=== PATIENT | female | born 1965 | race Caucasian/White ===

== ENCOUNTER 2021-01-26 10:42 | Emergency (ER) | payer BC, SELFPAY ==
[2021-01-26 10:58] VITALS: BP 150/86; PULSE 93; RESP 20; TEMP 36.3; O2SAT 100
--- NOTE | 2021-01-26 11:21 | ED.BACK ---
HPI - Back Pain/Injury General Chief Complaint: Back Pain/Injury Stated Complaint: Back Pain Time Seen by Provider: 01/26/21 11:08 Source: patient and RN notes reviewed Mode of arrival: ambulatory Limitations: no limitations History of Present Illness HPI Narrative: Patient presents today complaining of bilateral low back pain x3 days. Denies any real injury or trauma. 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 Pain increases with movement. Denies radiation of the pain. Denies numbness or tingling in the extremities or genitalia. Denies any loss of bowel or bladder control. Currently rates her pain 7/10 which increases to 10/10 with movement. She has been taking ibuprofen without relief. She has been also using a heating pad, which does provide some mild relief. MD elicited complaint: back pain Related Data Allergies Allergy/AdvReac Type Severity Reaction Status Date / Time naproxen Allergy Mild N/V Verified 04/01/19 13:39 tramadol Allergy Mild LEG CRAMPS Verified 04/01/19 13:40 Review of Systems Review of Systems: Narrative: CONSTITUTIONAL: Denies body aches, fever, chills, or sweats. EYES: Denies visual changes, redness, or discharge. ENT: Denies rhinorrhea, congestion, sore throat, or otalgia. CARDIOVASCULAR: Denies chest pain, palpitations, or edema. RESPIRATORY: Denies cough or dyspnea. GASTROINTESTINAL: Denies abdominal pain, nausea, vomiting, or diarrhea. GENITOURINARY: Denies dysuria or hematuria. SKIN: Denies rash, itching, or wounds. MUSCULOSKELETAL: Denies joint pain, or myalgia. + Low back pain NEUROLOGIC: Denies headache, numbness, tingling, or weakness. PSYCH: Denies depression or anxiety. PMFSH Comments At time of signature, I have reviewed and agree with nursing past medical, surgical, social and family history unless otherwise noted. Please see nursing chart for further information. There is no relevant family history pertinent to the presenting complaint Exam Narrative: Exam Narrative: GENERAL: Well-appearing, well-nourished, and in no acute distress. HEAD: Normocephalic, atraumatic. EYES: EOMI. No redness or drainage. Conjunctivae normal. ENT: Mucous membranes pink and moist. NECK: Normal AROM. CHEST: No respiratory distress. MUSCULOSKELETAL: No bony tenderness of the thoracic or lumbar spine. Bilateral lumbar paraspinal muscle tenderness. This tenderness extends to the bilateral buttocks. Distal sensation intact. Saddle sensation intact. Capillary refill normal. Pedal pulses normal. Dorsiflexion and plantarflexion equal and strong. Hip flexion strong against resistance. EXTREMITIES: Normal range of motion. No edema. SKIN: Warm, dry, no rash. Capillary refill normal. Normal skin turgor. NEURO: No focal deficits. Alert and oriented x3. Gait steady. PSYCH: Normal affect. No signs of depression or anxiety. Course Vital Signs Vital signs: Vital Signs Temperature 97.4 F L 01/26/21 10:58 Pulse Rate 93 01/26/21 10:58 Respiratory Rate 20 01/26/21 10:58 Blood Pressure 150/86 H 01/26/21 10:58 Pulse Oximetry 100 01/26/21 10:58 Temperature 97.4 F L 01/26/21 10:58 Pulse Rate 93 01/26/21 10:58 Respiratory Rate 20 01/26/21 10:58 Blood Pressure 150/86 H 01/26/21 10:58 Pulse Oximetry 100 01/26/21 10:58 Reviewed. Pt has been instructed to follow up with her PCP regarding her elevated blood pressure today. MDM - Back Pain/Injury Differential Diagnosis Differential diagnosis: Likely lumbar radiculopathy, sciatica, strain of lumbar region, thoracic back pain and other (Bulging disc) Critical Care Time Critical Care Time Critical Care Time: No Discharge Plan Discharge Clinical Impression: Strain of lumbar region Qualifiers: Encounter type: initial encounter Qualified Code(s): S39.012A - Strain of muscle, fascia and tendon of lower back, initial encounter Pat
== END 2021-01-26 11:40 | disposition home or self-care (01) ==
PROVIDERS: Emergency Provider Nurse Practitioner; PCP Nurse Practitioner Family
DX: S39.012A Strain of muscle, fascia and tendon of lower back, initial encounter (principal); X58.XXXA Exposure to other specified factors, initial encounter; E78.00 Pure hypercholesterolemia, unspecified; I10 Essential (primary) hypertension; K21.9 Gastro-esophageal reflux disease without esophagitis; E03.9 Hypothyroidism, unspecified
CPT/HCPCS: 99213; G0463

== ENCOUNTER 2021-07-24 08:20 | Emergency (ER) | payer BC, SELFPAY ==
--- NOTE | ~2021-07-24 | XR_ITS ---
EXAMINATION: XR knee RT min 4V DATE: 07/24/2021 09:02 INDICATION: Right knee pain. TECHNIQUE: 5 views of right knee were obtained. COMPARISON: None. FINDINGS: Bone alignment is normal. No fracture. There is mild tricompartmental osteoarthritis charac terized by tiny marginal osteophytes. No joint space narrowing. No knee joint effusion. IMPRESSION: 1. Mild right knee osteoarthritis. Reviewed, dictated and finalized at location A.
[2021-07-24 08:26] VITALS: BP 129/70; PULSE 87; RESP 14; TEMP 36.5; O2SAT 98
--- NOTE | 2021-07-24 08:47 | ED.LOWEXIN ---
HPI - Extremity Injury (Lower) General Chief Complaint: Extremity Injury, Lower Stated Complaint: right knee pain Time Seen by Provider: 07/24/21 08:39 Source: patient and RN notes reviewed Mode of arrival: ambulatory Limitations: no limitations History of Present Illness HPI Narrative: Patient presents today complaining of right knee pain x1 week with swelling. She denies any injury or trauma. Denies numbness or tingling. She is currently pain-free at rest, but this can increase to 9/10 with weightbearing or extension. She has tried ice, Tylenol, and ibuprofen without relief. MD complaint: knee injury Related Data Home Medications Medication Instructions Recorded Confirmed levothyroxine 125 mcg PO DAILY 07/24/21 07/24/21 losartan 100 mg PO DAILY 07/24/21 07/24/21 meloxicam 15 mg PO DAILY 07/24/21 07/24/21 oxybutynin chloride 5 mg PO DAILY 07/24/21 07/24/21 pantoprazole 40 mg PO QAM 07/24/21 07/24/21 Allergies Allergy/AdvReac Type Severity Reaction Status Date / Time naproxen Allergy Mild N/V Verified 07/24/21 08:35 tramadol Allergy Mild LEG CRAMPS Verified 07/24/21 08:35 Review of Systems Review of Systems: CONSTITUTIONAL: Denies body aches, fever, chills, or sweats. EYES: Denies visual changes, redness, or discharge. ENT: Denies rhinorrhea, congestion, sore throat, or otalgia. CARDIOVASCULAR: Denies chest pain, palpitations, or edema. RESPIRATORY: Denies cough or dyspnea. GASTROINTESTINAL: Denies abdominal pain, nausea, vomiting, or diarrhea. GENITOURINARY: Denies dysuria or hematuria. SKIN: Denies rash, itching, or wounds. MUSCULOSKELETAL: Denies back pain, or myalgia. + Right knee pain NEUROLOGIC: Denies headache, numbness, tingling, or weakness. PSYCH: Denies depression or anxiety. [facility] Past Medical History Medical History (Updated 07/24/21 @ 09:20 by Jennie Serna, MEDICAID SPECIALIST, ) GERD (gastroesophageal reflux disease) Hypertension Hypothyroidism Comments At time of signature, I have reviewed and agree with nursing past medical, surgical, social and family history unless otherwise noted. Please see nursing chart for further information. There is no relevant family history pertinent to the presenting complaint Exam Narrative: GENERAL: Well-appearing, well-nourished, and in no acute distress. HEAD: Normocephalic, atraumatic. EYES: EOMI. No redness or drainage. Conjunctivae normal. ENT: Mucous membranes pink and moist. NECK: Normal AROM. CHEST: No respiratory distress. EXTREMITIES: Right knee: Tenderness to the lateral knee with palpation. Distal sensation intact. Capillary refill normal. Pedal pulse normal. Full range of motion with pain with extension. Mild edema noted about the knee. No ecchymosis or erythema noted. SKIN: Warm, dry, no rash. Capillary refill normal. Normal skin turgor. NEURO: No focal deficits. Alert and oriented x3. Gait steady. PSYCH: Normal affect. No signs of depression or anxiety. Course Vital Signs Vital signs: Vital Signs Temperature 97.7 F 07/24/21 08:26 Pulse Rate 87 07/24/21 08:26 Respiratory Rate 14 07/24/21 08:26 Blood Pressure 129/70 07/24/21 08:26 Pulse Oximetry 98 07/24/21 08:26 Temperature 97.7 F 07/24/21 08:26 Pulse Rate 87 07/24/21 08:26 Respiratory Rate 14 07/24/21 08:26 Blood Pressure 129/70 07/24/21 08:26 Pulse Oximetry 98 07/24/21 08:26 Reviewed. Pt has been instructed to follow up with her PCP regarding her elevated blood pressure today. MDM - Extremity Injury (Lower) Differential Diagnosis Differential diagnosis: Likely other (Osteoarthritis, Garcia's cyst, knee effusion) Imaging Data Radiologist's impression: ITS Impressions Knee X-Ray 07/24/21 09:05 IMPRESSION: 1. Mild right knee osteoarthritis. Critical Care Time Critical Care Time Critical Care Time: No Discharge Plan Discharge Clinical Impression: Acute pain of right knee Patient Disposition: Home, Self-Ca
== END 2021-07-24 09:27 | disposition home or self-care (01) ==
PROVIDERS: Emergency Provider Nurse Practitioner; PCP Nurse Practitioner Family
DX: M25.561 Pain in right knee (principal); I10 Essential (primary) hypertension; E03.9 Hypothyroidism, unspecified; Z79.1 Long term (current) use of non-steroidal anti-inflammatories (NSAID)
CPT/HCPCS: 73564; 99213; G0463

== ENCOUNTER 2021-11-27 13:05 | Outpatient (CLI) | payer BC, SELFPAY ==
--- NOTE | 2021-11-27 13:15 | ECG_ITS ---
Measurements Intervals [place] Rate: 77 P: 35 [place]: 209 QRS: 1 QRSD: 89 T: -6 QT: 347 QTc: 395 Interpretive Statements SINUS RHYTHM INCOMPLETE RIGHT BUNDLE BRANCH BLOCK LOW QRS VOLTAGE IN PRECORDIAL LEADS BORDERLINE ST-T WAVE ABNORMALITY- INFERIOR LEADS BASELINE ARTIFACT- I, III, AVR, AVL, AVF BORDERLINE ECG Electronically Signed On 11-27-2021 13:25:22 STAMPING OPERATOR by Jacinto Garcia D.O.
== END 2021-11-27 13:06 | disposition home or self-care (01) ==
LOC: ANHSURGERY 13:08
PROVIDERS: PCP Nurse Practitioner Family; Visit Provider Orthopaedic Surgery
DX: Z01.810 Encounter for preprocedural cardiovascular examination (principal); I10 Essential (primary) hypertension; Z87.891 Personal history of nicotine dependence
CPT/HCPCS: 93005

== ENCOUNTER 2021-11-28 01:46 | Day surgery (SDC) | payer BC, SELFPAY ==
[2021-11-24 10:18] VITALS: BMI 39.6
--- NOTE | 2021-11-24 10:28 | PC.NURSE ---
Report to the Outpatient Waiting Room, entrance under the green pavilion located off [facility], at time 9:30 on date 11/28/21. OR Time: 11:30. - You will be asked a series of questions to screen for COVID 19 for your protection. - A mask is required within the hospital. - No visitors are allowed at this time. Preoperative COVID Testing Requirements: No COVID Test needed if: (proof is required; if not received patient will have Rapid Test prior to entry) - Patient has received COVID Vaccine at least 14 days prior to procedure date or - Patient has positive COVID test result within last 90 days of surgery date. COVID Test needed if above criteria is not met Patients may have clear liquids (water, carbonated beverages, clear teas, apple juice) until 3 hours prior to surgery (8:30) with a maximum of 20 ounces. - No food from midnight until time of surgery Take the following medications with a SIP of water the morning of surgery: LEVOTHYROXINE Medications to discontinue per physician: VITAMINS/SUPPLEMENTS Date to take last dose: 11/24/[address] DUBOSE Please no make-up, nail mauritian, hairspray, perfume, deodorant, or body powder the day of surgery. No jewelry (including any body piercings) or valuables the day of surgery, leave them at home. Please take a shower or bath the night before, or the morning of, surgery with an antibacterial soap. Wear comfortable, loose fitting clothing. - Jewelry must be removed prior to entering the operating room. Rings and piercings that are not removed may be cut off. - The hospital will not accept responsibility for valuables. - Please leave all valuables, including medications, at home the day of surgery. If you are going home after surgery, a licensed helper/driver must drive you home. - NO public transportation without another adult. - We recommend that an adult stay with you for 24 hours following discharge. - We also recommend that you do not drive, make important decision, drink alcoholic beverages, or take any drugs that were not prescribed by your health care provider for at least 24 hours after your discharge time. Follow any additional instructions given to you from your surgeon. Telephone instructions given to BRYAN DELCID and asked if any additional questions and then verbalized understanding. Patient advised to call surgeon office or pre surgery nurse liaison [phone] if any additional questions.
[2021-11-28] VITALS (8 sets, daily range): BP systolic 95–131; BP diastolic 60–83; PULSE 77–98; RESP 10–18; TEMP 36.2–36.5; O2SAT 94–99
--- NOTE | 2021-11-28 09:39 | WPDHPUPDATE1 ---
History and Physical Update Update Date/Time: 11/28/21 09:39 History and Physical has been reviewed, including an updated exam of the patient. There are NO changes in the patient's condition. Risks, benefits, and alternatives have been discussed and questions answered. Patient agrees to proceed with procedure.
[2021-11-28] MEDS: LACTATED RINGERS 1,000 ML 30 ML IV CONT (10:00)
[2021-11-28] MEDS: ACETAMINOPHEN 500 MG TABLET 1000 MG PO (10:04)
--- NOTE | 2021-11-28 10:19 | WPDANESEPPF ---
Anes - Initial Pre Proc Eval Procedure: Operation Date: 11/28/21 11:30 Proposed Procedures p Right Knee Arthroscopy, Partial Medial Meniscectomy - Zaid Garcia MD Date/Time: 11/28/21 10:19 Surgeon: Zaid Garcia MD Pre Op Diagnosis: right medial meniscus tear Patient Data Age: 56 Gender: F Height: 1.57 m Weight: 98.2 kg Last Vital Signs Temp 36.5 C 11/28/21 09:38 Pulse 81 11/28/21 09:38 Resp 18 11/28/21 09:38 BP 125/73 11/28/21 09:38 Pulse Ox 96 11/28/21 09:38 Allergies Allergy/AdvReac Type Severity Reaction Status Date / Time naproxen Allergy Mild N/V Verified 11/28/21 10:13 tramadol Allergy Mild LEG CRAMPS Verified 11/28/21 10:13 Home Medications Medication Instructions Recorded Confirmed Type levothyroxine 125 mcg PO DAILY 07/24/21 11/28/21 History losartan 100 mg PO DAILY 07/24/21 11/28/21 History meloxicam 15 mg PO DAILY 07/24/21 11/28/21 History oxybutynin chloride 5 mg PO DAILY 07/24/21 11/28/21 History pantoprazole 40 mg PO QAM 07/24/21 11/28/21 History calcium carbonate 600 mg-vitamin 1 tablet PO DAILY 09/05/21 11/28/21 History D3 20 mcg (800 unit) tablet Patient hx anesthesia problems: none Family hx anesthesia problems: none Results Review: All pre-operative results and documents have been reviewed as part of the pre-operative evaluation. [facility] Past Medical History Medical History GERD (gastroesophageal reflux disease) Hypertension Hypothyroidism Surgical History Surgical History H/O knee surgery (~1975) History of carpal tunnel surgery (~2015) History of tubal ligation (~1992) Family History Family History Mother Osteoarthritis Diabetes mellitus Social History Social History Smoking packs per day: 1 Smoking cigarettes per day: 20.0 Years smoked: 30 Smoking pack-years: 30.00 Smoking status: Former smoker Tobacco type: cigarettes Smoking end date: 11/04/17 Additional smoking assessment comments: quit Alcohol intake: current Alcohol use details: once a month Substance use: never Substance use type: does not use Living arrangements: with family Spiritual care concerns: No Anes - Eval Final PreProcedure Day of Procedure 11/28/21 10:19 Patient weight: morbidly obese Heart: regular rate and rhythm Lungs: clear to auscultation Airway: Mallampati scale class II Neurological: alert and oriented Last oral intake: >/= 8 hours ASA classification: III Emergent: no Anesthetic plan: proceed Anesthesia type and monitoring: general LMA and standard monitoring Results Review: All pre-operative results and documents have been reviewed as part of the pre-operative evaluation. Informed Consent: The patient's anesthetic plan and its attendant risks and benefits were discussed with the patient/family/POA. Questions were solicited and answers provided to the satisfaction of the patient/family/POA.
[2021-11-28] MEDS: KETOROLAC 15 MG/ML VIAL (*BKC) IV PUSH (10:43)
[2021-11-28] MEDS: ceFAZolin 2 GM/D5W 50 ML 2 GM/50 ML BAG IVPB (10:44)
[2021-11-28] MEDS: BUPIVACAINE/EPINEPHRINE 0.25% 10 ML VIAL 20 ML INFILTRATE (11:06)
--- NOTE | 2021-11-28 11:51 | SUR.PHASEI ---
Simple mask removed at 1151.
[2021-11-28] MEDS: fentaNYL CITRATE INJ (*CRX) 100 MCG/2 ML VIAL 25 MCG IV PUSH ×2 (12:02→12:06)
[2021-11-28] MEDS: oxyCODONE HCL (*CRX) 5 MG TAB IR PO (12:54)
--- NOTE | 2021-11-28 13:23 | P.OP_ITS ---
Procedure Note - Detailed Date of Procedure 11/28/21 Pre-op Diagnosis Right medial meniscus tear Post-op Diagnosis same Procedure Performed Arthroscopic partial right meniscectomy Surgeon Zaid Garcia MD Collection Analyst Rylie Todd PA-C Anesthesia general Findings Significant tricompartmental degenerative changes. Patellofemoral disease as well as lateral tibial involvement primarily. The tear was at the posterior horn with with complex degeneration and destabilization of the meniscus. Debridement occurred throughout the posterior and posterior medial meniscus. The radiofrequency probe was used to attempt to stabilize further the damaged tissue posteriorly. Also the chondroplasty was performed both on the medial femur and on the lateral tibia primarily. Medial femur chondromalacia grade 3, medial tibia grade 2. Lateral femur chondromalacia grade 1, lateral tibia grade 3. Patellar grade 3, trochlea grade 3. Description of Procedure The patient was identified and the surgical site confirmed and signed in the preoperative holding area. Antibiotics were started per protocol. She was brought to the operative room and transferred to the OR table. A general anesthetic was administered. Supine position with the operative lower extremity position in the leg herron after placement of a well padded tourniquet. The leg support was lowered and the contralateral limb was supported with a soft bolster. The knee was prepped and draped in the usual sterile fashion. A time- out was performed. The portal sites were marked and infiltrated with 0.5% Marcaine 20 mL. The limb was exsanguinated and the tourniquet inflated to 300 mL Hg. Standard inferolateral and inferomedial portals were established. Inflow was obtained with the saline pump. The camera was introduced. Diagnostic inspection of the joint was accomplished. The meniscus was debrided with the arthroscopic shaver and punches until stable. The radiofrequency probe was also used for further d?bridement. Gentle chondroplasty was performed as needed, primarily on the medial femur and lateral tibia. The arthroscopic instruments were removed. The tourniquet released and wounds closed with subcutaneous 4-0 Monocryl absorbable suture. Steri strips and a st erile dressing were applied. A light elastic wrap was placed. The patient was extubated and brought to the recovery room in stable condition. Estimated Blood Loss 5 Drains No Complications No immediate complications Condition stable Disposition PACU
== END 2021-11-28 13:30 | disposition home or self-care (01) ==
PROVIDERS: PCP Nurse Practitioner Family; Visit Provider Orthopaedic Surgery
PROC: (CPT 29870; principal; 2021-11-28 11:30)
DX: M23.221 Derangement of posterior horn of medial meniscus due to old tear or injury, right knee (principal); M22.41 Chondromalacia patellae, right knee; K21.9 Gastro-esophageal reflux disease without esophagitis; I10 Essential (primary) hypertension; E03.9 Hypothyroidism, unspecified; Z87.891 Personal history of nicotine dependence; E66.9 Obesity, unspecified; Z68.39 Body mass index [BMI] 39.0-39.9, adult; M25.561 Pain in right knee; F32.9 Major depressive disorder, single episode, unspecified; R61 Generalized hyperhidrosis; R26.2 Difficulty in walking, not elsewhere classified
CPT/HCPCS: 29881; 93005; A9270; J0690; J1100; J1885; J2250; J2405; J2704; J3010; J7120

== ENCOUNTER 2022-05-31 09:54 | Emergency (ER) | payer SELFPAY ==
--- NOTE | 2022-05-31 09:56 | ED.CHESTPAIN ---
HPI - Chest Pain General Chief Complaint: Chest Pain Stated Complaint: Chest Pain Time Seen by Provider: 05/31/22 09:56 Source: patient Mode of arrival: ambulatory Limitations: no limitations History of Present Illness HPI narrative: Ms. Salas is a 56-year-old female patient presenting to the clinic today with complaints of midsternal chest pain that began at 0800 this morning that last approx 1h30 minutes. She reports that the pain was very intense and rates it 10 out of 10 on the pain rating scale. She currently rates the pain approximately a 3 out of 10. She is unable to give me a quality of pain at this time. States she did have some shortness of breath with the intense pain and that the pain radiated into her back. She denies any jaw or arm pain. Reports that she ate a salad last night and thought that this may be gas so she took some Gas-X. Reported that she has had chest pressure a couple weeks ago while at work and they called an ambulance and her EKG was normal and her blood pressure was elevated at that time but she declined transfer to the hospital as she did not have insurance. Related Data Home Medications Medication Instructions Recorded Confirmed levothyroxine 125 mcg tablet 125 mcg PO DAILY 07/24/21 01/03/22 losartan 100 mg tablet 100 mg PO DAILY 07/24/21 01/03/22 meloxicam 15 mg tablet 15 mg PO DAILY 07/24/21 01/03/22 oxybutynin chloride 5 mg tablet 5 mg PO DAILY 07/24/21 01/03/22 pantoprazole 40 mg tablet,delayed 40 mg PO QAM 07/24/21 01/03/22 release calcium carbonate 600 mg-vitamin 1 tablet PO DAILY 09/05/21 01/03/22 D3 20 mcg (800 unit) tablet (Caltrate with Vitamin D3) Allergies Allergy/AdvReac Type Severity Reaction Status Date / Time naproxen Allergy Mild N/V Verified 11/28/21 10:13 tramadol Allergy Mild LEG CRAMPS Verified 11/28/21 10:13 Review of Systems Review of Systems: Pertinent positives per HPI. Patient denies any fever, chills, rash, headache, visual changes, dizziness, cough, runny nose, sore throat, palpitations, nausea, vomiting, diarrhea, constipation, abdominal pain, or any urinary issues. [facility] Past Medical History Medical History GERD (gastroesophageal reflux disease) Hypertension Hypothyroidism Surgical History Surgical History H/O knee surgery (~1975) History of carpal tunnel surgery (~2015) History of tubal ligation (~1992) Family History Family History Mother Osteoarthritis Diabetes mellitus Social History Social History Smoking packs per day: 1 Smoking cigarettes per day: 20.0 Years smoked: 30 Smoking pack-years: 30.00 Tobacco type: cigarettes Smoking end date: 11/04/17 Additional smoking assessment comments: quit Alcohol intake: current Alcohol use details: once a month Substance use: never Substance use type: does not use Spiritual care concerns: No Comments At the time of my signature, I reviewed and agree with the nursing past medical, surgical, social, and family history. There is no relevant family history pertinent to the patient complaint. Exam Narrative: General: Well-developed,obese, in no apparent distress Head: Normocephalic, atraumatic. Cardio: Regular rate and rhythm, s1 and s2 normal, no murmur appreciated. Resp: Clear to auscultation bilaterally, no rhonchi, rales, wheezing or rubs. Extremities: No deformity, no edema, no cyanosis, capillary refill less than 2 seconds, peripheral pulses palpable and strong. Integumentary: [place], warm, and dry, intact without lesion, no rashes. Course Course Emergency Course: Portions of this record may have been created with voice recognition software. Level of Care: Express Care Visit Vital Signs Vital signs: Vital si
[2022-05-31 10:00] VITALS: BP 126/75; PULSE 89; RESP 16; TEMP 36.7; O2SAT 98
--- NOTE | 2022-05-31 10:07 | ECG_ITS ---
Measurements Intervals [place] Rate: 86 P: 46 [place]: 200 QRS: 11 QRSD: 93 T: -1 QT: 344 QTc: 413 Interpretive Statements SINUS RHYTHM INCOMPLETE RIGHT BUNDLE BRANCH BLOCK BORDERLINE ST-T WAVE ABNORMALITY- INFERIOR LEADS BASELINE ARTIFACT- I, II, AVR BORDERLINE ECG Electronically Signed On 05-31-2022 10:54:00 CDT by Jacinto Garcia D.O.
--- NOTE | 2022-05-31 10:17 | PC.NURSE ---
report called to Tr chargemaster specialist. Accepting physician is Dr. Herr. Pt is declining ambulance transport.
== END 2022-05-31 10:33 | disposition short-term general hospital (02) ==
PROVIDERS: Emergency Provider Nurse Practitioner Family; PCP Nurse Practitioner Family
DX: R07.9 Chest pain, unspecified (principal); Z87.891 Personal history of nicotine dependence; K21.9 Gastro-esophageal reflux disease without esophagitis; I10 Essential (primary) hypertension; E03.9 Hypothyroidism, unspecified
CPT/HCPCS: 93005; 99213; G0463

== ENCOUNTER 2022-07-18 12:24 | Emergency (ER) | payer BC, SELFPAY ==
--- NOTE | ~2022-07-18 | XR_ITS ---
EXAMINATION: XR ribs RT 2V DATE: 07/18/2022 12:47 INDICATION: Right chest pain. Fall. TECHNIQUE: 3 views of the right ribs were obtained. COMPARISON: None. FINDINGS: There is no right-sided pneumonia, pleural effusion, pneumothorax or the heart size is norm al. There is a fracture of right sixth rib. IMPRESSION: 1. Right sixth rib fracture. Reviewed, dictated and finalized at location A.
--- NOTE | 2022-07-18 12:26 | ED.GENADULT ---
HPI - General Adult General Chief complaint: Wound/Laceration Stated complaint: Fall Injury/Rib Pain Time Seen by Provider: 07/18/22 12:53 Mode of arrival: ambulatory Limitations: no limitations History of Present Illness HPI narrative: 56-year-old female presents concern for right rib pain. Reports on Saturday she fell into a banister. She denies shortness of breath. She reports on Saturday she fell into a banister. Since then she has had pain under her right breast that worsens with certain movements, coughing. Reports she had leftover pain medication which she took and it dulled the pain. She denies rash, redness, swelling, bruising MD complaint: Rib pain Related Data Home Medications Medication Instructions Recorded Confirmed levothyroxine 125 mcg tablet 125 mcg PO DAILY 07/24/21 07/18/22 losartan 100 mg tablet 100 mg PO DAILY 07/24/21 07/18/22 meloxicam 15 mg tablet 15 mg PO DAILY 07/24/21 07/18/22 oxybutynin chloride 5 mg tablet 5 mg PO DAILY 07/24/21 07/18/22 pantoprazole 40 mg tablet,delayed 40 mg PO QAM 07/24/21 07/18/22 release calcium carbonate 600 mg-vitamin 1 tablet PO DAILY 09/05/21 07/18/22 D3 20 mcg (800 unit) tablet (Caltrate with Vitamin D3) Allergies Allergy/AdvReac Type Severity Reaction Status Date / Time naproxen Allergy Mild N/V Verified 07/18/22 12:38 tramadol Allergy Mild LEG CRAMPS Verified 07/18/22 12:38 Review of Systems Review of Systems: CONSTITUTIONAL: Denies malaise, chills, sweats, or fever. CARDIOVASCULAR: Denies palpitations, or edema. RESPIRATORY: Denies cough or dyspnea. Reports right chest wall pain SKIN: Denies bruising, redness, warmth, rash MUSCULOSKELETAL: Reports right chest wall pain All systems reviewed & are unremarkable except as noted in HPI and below [facility] Past Medical History Medical History GERD (gastroesophageal reflux disease) Hypertension Hypothyroidism Surgical History Surgical History H/O knee surgery (~1975) History of carpal tunnel surgery (~2015) History of tubal ligation (~1992) Family History Family History Mother Osteoarthritis Diabetes mellitus Social History Social History Smoking packs per day: 1 Smoking cigarettes per day: 20.0 Years smoked: 30 Smoking pack-years: 30.00 Tobacco type: cigarettes Smoking end date: 11/04/17 Additional smoking assessment comments: quit Alcohol intake: current Alcohol use details: once a month Substance use: never Substance use type: does not use Spiritual care concerns: No Comments At time of signature, agree with nursing past medical, surgical, social and family history. There is no relevant family history pertinent to the presenting complaint Exam Narrative: GENERAL: Well-appearing, well-nourished, and in no acute distress. HEAD: Normocephalic EYES: PERRLA, sclera clear ENT: Nares clear. Mucous membranes moist. NECK: Supple. CHEST: No respiratory distress. Clear to auscultation. No bony deformities, no asymmetry. Speaks in full sentences. Tenderness under the right breast HEART: Regular rate and rhythm. No murmur heard. Normal peripheral pulses. SKIN: Warm, dry, no visible rash, bruising, redness, warm NEURO: Alert and oriented x3. PSYCH: Normal mood and affect Course Course Emergency Course: Patient is aware of diagnosis, understands and agrees to treatment plan. Anticipatory guidance given. Patient agrees to follow-up as directed and is aware of reasons to seek care at the emergency department. Portions of this record may have been created with voice recognition software Level of Care: Express Care Visit Vital Signs Vital signs: Reviewed. Medical Decision Making MDM Narrative Medical decision making narrat
[2022-07-18 12:30] VITALS: BP 133/72; PULSE 85; RESP 16; TEMP 36.8; O2SAT 98
--- NOTE | 2022-07-18 13:07 | PC.NURSE ---
PT DECLINED ICE FOR COMFORT
== END 2022-07-18 13:05 | disposition home or self-care (01) ==
PROVIDERS: Emergency Provider Nurse Practitioner; PCP Nurse Practitioner Family
DX: S22.31XA Fracture of one rib, right side, initial encounter for closed fracture (principal); W01.198A Fall on same level from slipping, tripping and stumbling with subsequent striking against other object, initial encounter; K21.9 Gastro-esophageal reflux disease without esophagitis; I10 Essential (primary) hypertension; E03.9 Hypothyroidism, unspecified; Z87.891 Personal history of nicotine dependence
CPT/HCPCS: 71100; 99213; G0463

== ENCOUNTER 2025-02-15 11:20 | Emergency (ER) | payer BC, SELFPAY ==
--- NOTE | ~2025-02-15 | XR_ITS ---
CHEST RADIOGRAPH, PA AND LATERAL CLINICAL HISTORY: cough, SOB . COMPARISON: None TECHNIQUE: PA and lateral views of the chest. FINDINGS Large hiatal hernia is present. The remainder of the cardiomediastinal silhouette is otherwise unremarkable. The lungs are clear. Visualized osseous structures and soft tissues are unremarkable. IMPRESSION: Large hiatal hernia, without focal infiltrate or effusion. Reviewed, dictated and finalized at location A.
[2025-02-15 11:28] VITALS: BP 146/92; PULSE 81; RESP 20; TEMP 36.1; O2SAT 96
--- NOTE | 2025-02-15 11:46 | ED.URI ---
HPI - URI/Sore Throat General Chief Complaint: Upper Respiratory Infection Stated Complaint: Cough/Chest Congestion Time Seen by Provider: 02/15/25 11:46 Source: patient Mode of arrival: ambulatory Limitations: no limitations History of Present Illness HPI Narrative: 59-year-old female presents with complaint of cough, chest congestion, shortness of breath for the past 4-5 days. Afebrile. Reports coughing up yellow mucus. Yesterday felt very short of breath. Checked her pulse ox and it was 87%. Patient keeps a pulse ox at home due to being a [employer]. No chest pain or shortness of breath at this time. No respiratory distress noted. Patient taking [id number] cough medication to treat symptoms. All systems reviewed and negative except as noted above. Related Data Home Medications ?Medication ?Instructions ?Recorded ?Confirmed ?Last Taken ?Type levothyroxine 125 mcg tablet 125 mcg PO DAILY 07/24/21 02/15/25 Unknown History losartan 100 mg tablet 100 mg PO DAILY 07/24/21 02/15/25 Unknown History oxybutynin chloride 5 mg tablet 5 mg PO DAILY 07/24/21 02/15/25 Unknown History pantoprazole 40 mg tablet,delayed 40 mg PO QAM 07/24/21 02/15/25 Unknown History release calcium 600 mg (as 1 tablet PO DAILY 09/05/21 02/15/25 Unknown History carbonate)-vitamin D3 20 mcg (800 unit) tablet (Caltrate with Vitamin D3) acetaminophen 650 mg 650 mg PO Q12H 06/21/23 12/11/24 Unknown History tablet,extended release atorvastatin 10 mg tablet 10 mg PO DAILY 06/21/23 02/15/25 Unknown History bupropion HCl 100 mg tablet,12 hr 100 mg PO DAILY 09/04/24 02/15/25 Unknown History sustained-release (Wellbutrin SR) atomoxetine 80 mg capsule 80 mg PO DAILY 12/11/24 02/15/25 Unknown History (Strattera) Allergies Allergy/AdvReac Type Severity Reaction Status Date / Time naproxen Allergy Mild N/V Verified 12/11/24 09:47 tramadol Allergy Mild LEG CRAMPS Verified 12/11/24 09:47 Review of Systems Review of Systems: CONSTITUTIONAL: Denies fever, chills, or sweats. reports fatigue. EYES: Denies visual changes, redness, or discharge. ENT: Denies rhinorrhea, congestion, sore throat, or otalgia. CARDIOVASCULAR: Denies chest pain, palpitations, or edema. RESPIRATORY: Reports cough chest congestion,dyspnea with exertion. GASTROINTESTINAL: Denies abdominal pain, nausea, vomiting, or diarrhea. GENITOURINARY: Denies dysuria or hematuria. SKIN: Denies rash or itching. MUSCULOSKELETAL: Denies back pain, joint pain, or myalgia. NEUROLOGIC: Denies headache, numbness, or weakness. PSYCHIATRIC: Denies anxiety or depression. All other systems reviewed are negative, except as documented in HPI. [facility] Past Medical History Medical History GERD (gastroesophageal reflux disease) Hypothyroidism Hypertension Surgical History Surgical History History of carpal tunnel surgery (~2015) H/O knee surgery (~1975) History of tubal ligation (~1992) Family History Family History Mother Osteoarthritis Diabetes mellitus Social History Social History Smoking packs per day: 1 Smoking cigarettes per day: 20.0 Years smoked: 30 Smoking pack-years: 30.00 Smoking status: Former smoker Tobacco type: cigarettes Smoking end date: 11/04/17 Additional smoking assessment comments: quit Alcohol intake: current Alcohol use details: once a month Substance use: never Substance use type: does not use Do You Feel Safe in your Home?: Yes Lack of Transportation: No Lack of Food: Never True Current Housing: I Have Housing Concerned About Future Housing: No Difficulty Paying Gas/Electric Bills: No Difficulty Paying for Meds: No Currently Unemployed: No Education: Trade/Vocational Certificate Difficulty w/ Childcare or Family Care: No Living arrangements: with family Spiritual care concerns: No Comments At time of signature, agree with nursing past medical, surgical, social and family history. There is no relevant family history pertinent to the presenting complaint. Exam Narrative: GENERAL: This is a well-nourished, well-developed patient, in no apparent distress. HEAD: normocephalic, atraumatic. EYES: PERRL. Sclera clear/white. Vision is grossly intact. EARS: External ears normal, auditory canals clear and without drainage, TMs normal without perforation. Hearing grossly intact. NOSE: External nose normal with Clear nasal drainage THROAT: Mucous membranes moist, clear postnasal drainage without erythema or swelling. NECK: Neck supple, non-tender without lymphadenopathy, masses or thyromegaly. CARDIOVASCULAR: Regular rate and rhythm without murmurs, gallops, or rubs. RESPIRATORY: Decreased to bilateral lower lung og otherwise clear. Breath sounds equal bilaterally. No wheezes, rales, or rhonchi. SKIN: warm, Dry, intact with no suspicious lesions or rash, good texture and turgor. NEURO: awake, alert, and oriented to person, place and time. There were no obvious focal neurologic abnormalities. EXTREMITIES: No joint tenderness, effusion, or edema noted. Course Course Level of Care: Express Care Visit Reevaluation(s) Reevaluation #1: Lungs clear to auscultation after DuoNeb. 97% room air Vital Signs Vital signs: Vital Signs Temperature 36.1 C L 02/15/25 11:28 Pulse Rate 81 02/15/25 11:28 Respiratory Rate 20 02/15/25 11:28 Blood Pressure 146/92 H 02/15/25 11:28 Pulse Oximetry 96 02/15/25 11:28 Oxygen Delivery Room Air 02/15/25 11:28 Temperature 36.1 C L 02/15/25 11:28 Pulse Rate 81 02/15/25 11:28 Respiratory Rate 20 02/15/25 11:28 Blood Pressure 146/92 H 02/15/25 11:28 Pulse Oximetry 96 02/15/25 11:28 Oxygen Delivery Room Air 02/15/25 11:28 reviewed MDM - URI/Sore Throat MDM Narrative Medical decision making narrative: negative COVID and influenza testing. Chest x-ray negative for pneumonia. Did inform patient she has large hiatal hernia seen on chest x-ray and patient states she was aware. Takes medication for GERD. Patient well-appearing, nontoxic. Will treat patient for bronchitis with albuterol, prednisone, Mucinex. Recommend follow-up with primary care physician if cough not improving. Please be advised this is a medical document. It is intended for [id number] communication. It is written in medical language and may contain unfamiliar abbreviations or verbiage. Medical documents are intended to carry relevant information, facts as evident, and the clinical opinion of the practitioner at the time of the encounter. This report may have been done utilizing a voice recognition system. Attempts have been made to correct errors. However, there may be uncorrected grammatical, spelling, and recognition errors present. The file time of this note does not necessarily represent the time of service. Differential Diagnosis Differential diagnosis: Likely upper respiratory infection, sinusitis, viral infection, bronchitis and influenza Lab Data Labs: Lab Results 02/15/25 Range/Units 11:32 POC Influenza A Ag Negative (Negative) POC Influenza B Ag Negative (Negative) POC SARS CoV-2 Ag Negative (Negative) Imaging Data My impression: agree with radiologist Radiologist's impression: CHEST RADIOGRAPH, PA AND LATERAL CLINICAL HISTORY: cough, SOB . COMPARISON: None TECHNIQUE: PA and lateral views of the chest. FINDINGS Large hiatal hernia is present. The remainder of the cardiomediastinal silhouette is otherwise unremarkable. The lungs are clear. Visualized osseous structures and soft tissues are unremarkable. IMPRESSION: Large hiatal hernia, without focal infiltrate or effusion. Discharge Plan Discharge Clinical Impression: Acute bronchitis Qualifiers: Bronchitis organism: unspecified organism Qualified Code(s): J20.9 - Acute bronchitis, unspecified Patient Disposition: Home Condition: Stable Instructions: Acute Bronchitis (ED) Additional Instructions: your chest x-ray was negative for pneumonia. Take medications as prescribed. Start prednisone prescription tomorrow morning. Take [id number] Mucinex as directed on packaging. Drink at least 64 oz of water a day. Follow-up with your doctor if symptoms are not improving. Patient Language: Cypriot Prescriptions: New benzonatate 200 mg capsule 200 mg PO TID PRN (Reason: cough) Qty: 20 0RF prednisone 20 mg tablet 40 mg PO DAILY 5 Days Qty: 10 0RF albuterol sulfate 90 mcg/actuation HFA aerosol inhaler 2 puff inhalation Q4-6H PRN (Reason: shortness of breath or wheezing) Qty: 8.5 0RF (DME) Aerochamber Plus Z Stat Spacer See Rx Instructions .Route Qty: 1 0RF Rx Instructions: As directed No Action pantoprazole 40 mg Tablet,Delayed Release (Dr/Ec) 40 mg PO QAM levothyroxine 125 mcg Tablet 125 mcg PO DAILY oxybutynin chloride 5 mg Tablet 5 mg PO DAILY losartan 100 mg Tablet 100 mg PO DAILY calcium carbonate-vitamin D3 [Caltrate with Vitamin D3] 600 mg(1,500mg) -800 unit tablet 1 tablet PO DAILY atomoxetine [Strattera] 80 mg capsule 80 mg PO DAILY atorvastatin 10 mg tablet 10 mg PO DAILY acetaminophen 650 mg tablet extended release 650 mg PO Q12H bupropion HCl [Wellbutrin SR] 100 mg tablet sustained-release 12 hr 100 mg PO DAILY Follow-up/Referrals: Karri,Hollie Kearney [Primary Care Provider] - Time of Disposition: 12:25
[2025-02-15 11:52] LABS: EDCOVIDSCREEN Negative (Negative); EDINFLUASCREEN Negative (Negative); EDINFLUBSCREEN Negative (Negative)
[2025-02-15] MEDS: predniSONE 20 MG TABLET 40 MG PO (12:05)
[2025-02-15] MEDS: IPRATROPIUM 0.5 MG/ALBUTEROL SULFATE 2.5 MG AMPUL.NEB 3 ML INHALATION (12:06)
[2025-02-15 12:19] VITALS: PULSE 91; RESP 20; O2SAT 97
--- OUTSIDE RECORDS SUMMARY | 2025-02-15 13:02 | XMS_ITS | Data Portability ---
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 Plan of Treatment Reminders Order Date Submit Date Provider Last Modified By Organization Details Last Modified Time Details Appointments None recorded. Lab CMP, serum or plasma 2023 024 [facility], [address] [place], [address], 4 09:39:05 TSH + free T4, serum 2023 024 [facility], [address] [place], [address], 4 09:39:05 iron + TIBC + ferritin, serum 2023 024 [facility], [address] [place], [address], 4 09:39:05 CBC w/ auto diff 2023 024 [facility], [address] [place], [address], 4 15:17:54 hepatic function panel, serum 2023 024 [email or web address] [facility], [address] [place], [address], 4 07:57:01 lipid panel, serum [address] (Lab), [address] [place], [address], 4 14:07:30 vitamin D, 25-hydroxy, total, serum [address] (Lab), [address] [place], [address], 4 14:10:21 CMP, serum or plasma [address] (Lab), [address] [place], [address], 4 14:09:43 HbA1c (hemoglobin A1c), blood [address] (Lab), [address] [place], [address], 4 14:10:02 TSH, serum, reflex free T4 [address] (Lab), [address] [place], [address], 4 14:08:22 vitamin B12 + folate, serum or blood [address] (Lab), [address] [place], [address], 4 14:10:41 Referral None recorded. Procedures None recorded. Surgeries None recorded. Imaging MAMMO, screening, digital, bilateral - *Please call pt to schedule* 2023 [email or web address] [place] [address] ([facility]), [address] [place], [address], 4 09:30:05 LDCT, chest, for lung cancer screening - *Please call pt to schedule* 2023 024 [facility] ([facility]), [address] [place], [address], 4 14:11:11 Medication Orders furosemide 20 mg tablet 2023 024 [place] [employer] [facility], [address], [place], [address], 4 08:43:57 Patient TargetsNo targets recorded. Patient Instructions Encounter Date Encounter Id Patient Instructions Last Modified By Organization Details Last Modified Time 11/11/2023 [id number] INFLUENZA VACCIN E TD/TDAP PNEUMONIA VACCINE SHINGLES MAMMOGRAM: Last Mammogram __ DEXA SCAN CERVICAL SCREENING/PELVIC EXAMINATION COLORECTAL SCREENING: Last Colonoscopy DEPRESSION SCREENING BMI NUTRITION PHYSICAL ACTIVITY VISION ALCOHOL USE TOBACCO USE LUNG CANCER SCREENING SEXUALLY ACTIVE HEPATITIS C SCREENING GLUCOSE SCREENING LIPID SCREENING [email or web address] Not available 11/11/2023 11:35:49 Reason for Referral None Reported. Results Created Date Observation Date Name Description Value Unit Range Abnormal Flag Note LastModifiedBy Organization Detail LastModifiedTime 04/09/20 24 04/09/2024 DRUG MONIT OR, PANEL 3, W/CON F, URINE amphetamines NEGATI VE NG/mL <500 Not Available [facility] [address] [address] [place], [address], 04/09/2024 17:43:27 04/09/20 24 04/09/2024 DRUG MONIT OR, PANEL 3, W/CON F, URINE benzodiazepi dalila NEGATI VE NG/mL <100 Not Available [facility] [address] [address], [place], [address], 04/09/2024 17:43:27 04/09/20 24 04/09/2024 DRUG MONIT OR, PANEL 3, W/CON F, URINE cocaine metabolite NEGATI VE NG/mL <150 Not Available [facility] [address] [address] [place], [address], 04/09/2024 17:43:27 04/09/20 24 04/09/2024 DRUG MONIT OR, PANEL 3, W/CON F, URINE marijuana metabolite NEGATI VE NG/mL <20 Not Available [address], [address], 04/09/2024 17:43:27 04/09/20 24 04/09/2024 DRUG MONIT OR, PANEL 3, W/CON F, URINE opiates NEGATI VE NG/mL <100 Not Available [address] [place], [address], 04/09/2024 17:43:27 04/09/20 24 04/09/2024 DRUG MONIT OR, PANEL 3, W/CON F, URINE oxycodone NEGATI VE NG/mL <100 Not Available [address], [address], 04/09/2024 17:43:27 04/09/20 24 04/09/2024 DRUG MONIT OR, PANEL 3, W/CON F, URINE creatinine 132.1 mg/dL > or = 20.0 Not Available [address], [address], 04/09/2024 17:43:27 04/09/20 24 04/09/2024 DRUG MONIT OR, PANEL 3, W/CON F, URINE pH 5.4 4.5-9. 0 Not Available [address] [place], [address], 04/09/2024 17:43:27 04/09/20 24 04/09/2024 DRUG MONIT OR, PANEL 3, W/CON F, URINE oxidant NEGATI VE mcg/m L <200 Not Available [address] [place], [address], 04/09/2024 17:43:27 04/09/20 24 04/09/2024 DRUG MONIT ORING TEMPL ATE notes and comments This drug testi ng is for medic al treat ment only. Wendy sis was perfo rmed as non-f orens ic testi ng and these resul ts shoul d be used only by healt hcare provi ders to rende r diagn osis or treat ment, or to monit or progr ess of medic al condi tions . Healt hcare Provi ders needi ng Inter preta tion tara tance , pleas e conta ct us at 1.877 .40.R XTOX (1.87 [phone] .[phone] ) M-F, 8am to 10pm EST Not Available [facility] [address] [address] [place], [address], 04/09/2024 17:43:28 10/24/20 22 10/24/2022 HEMOG LOBIN A1C HA1C 5.5 % 4.0-6. 0 Diabe césar Scree dhaval Crite patti: <5.7% Consi stent with absen ce of diabe césar 5.7-6 .4% Consi stent with incre ased risk for diabe césar (pred iabet es) >OR=6 .5% Consi stent with diabe césar REFER ENCE: Diabe césar Care 2016, 39(Díaz ppl.1 ):s13 -s22 Not Available [facility] (Lab) [address] [place], [address], 10/24/2022 21:32:15 10/24/20 22 10/24/2022 TSH thyroid-stim ulating hormone 24.400 uIU/m L 0.465- 4.680 high Not Available [facility] (Lab) [address] [place], [address], 10/24/2022 21:20:04 10/24/20 22 10/24/2022 COMPR EHENS JENNIFER METAB OLIC PANEL sodium 141 mmol/ L 137-14 5 Not Available [facility] (Lab) [address] [place], [address], 10/24/2022 20:45:57 10/24/20 22 10/24/2022 COMPR EHENS JENNIFER METAB OLIC PANEL potassium 4.0 mmol/ L 3.5-5. 1 Not Available [facility] (Lab) [address] [place], [address], 10/24/2022 20:45:57 10/24/20 22 10/24/2022 COMPR EHENS JENNIFER METAB OLIC PANEL chloride 107 mmol/ L 98-107 Not Available [facility] (Lab) [address] [place], [address], 10/24/2022 20:45:57 10/24/20 22 10/24/2022 COMPR EHENS JENNIFER METAB OLIC PANEL carbon dioxide 25 mmol/ L 22-30 Not Available [facility] (Lab) [address] [place], [address], 10/24/2022 20:45:57 10/24/20 22 10/24/2022 COMPR EHENS JENNIFER METAB OLIC PANEL anion gap 13.0 mmol/ L 14-22 low Not Available [facility] (Lab) [address] [place], [address], 10/24/2022 20:45:57 10/24/20 22 10/24/2022 COMPR EHENS JENNIFER METAB OLIC PANEL glucose 97 mg/dL 70-99 Not Available [facility] (Lab) [address] [place], [address], 10/24/2022 20:45:57 10/24/20 22 10/24/2022 COMPR EHENS JENNIFER METAB OLIC PANEL BUN 12 mg/dL 8-19 Not Available [facility] (Lab) [address] [place], [address], 10/24/2022 20:45:57 10/24/20 22 10/24/2022 COMPR EHENS JENNIFER METAB OLIC PANEL creatinine 0.69 mg/dL 0.66-1 .25 Not Available [facility] (Lab) [address] [place], [address], 10/24/2022 20:45:57 10/24/20 22 10/24/2022 COMPR EHENS JENNIFER METAB OLIC PANEL GFR >60 Refer ence Range : De [place] ge GFR Healt hy Adult : >60 mL/mi n/1.7 3 m2 Chron ic Kidne y Disea se: 15-60 mL/mi n/1.7 3 m2 Kidne y Failu re: <15/m L/min /1.73 m2 www.n iddk. nih.g ov The MDRD study equat ion has not been valid ated in child asif <18 years of age; pregn ant women ; the elder ly >85 years of age; or in some racia l or ethni c subgr oups, such as Hisconsuelo nics. Outsi de the valid ated tam eters , estim ated GFR is less accur ate, requi ring clini noah judgm ent on a case- by-ca se basis . Clini noah inter preta tion for other races and ages must be made by the clini crystal. The MDRD study equat ion has not been valid ated for the evalu ation of serum creat inine relat ed to nutri ashleigh l statu s or medic ation usage . For perso ns <18 years of age, a pedia tric GFR calcu lator is avail able on the [facility] websi te: [email or web address] :[email or web address] [email or web address] [email or web address] rg/pr ofess ional s/kdo qi/gf r_cal culat or Not Available [facility] (Lab) [address] [place], [address], 10/24/2022 20:45:57 10/24/20 22 10/24/2022 COMPR EHENS JENNIFER METAB OLIC PANEL alkaline phosphatase 103 U/L 38-126 Not Available [facility] (Lab) [address] [place], [address], 10/24/2022 20:45:57 10/24/20 22 10/24/2022 COMPR EHENS JENNIFER METAB OLIC PANEL alanine aminotransfe rase 26 U/L 0-35 Not Available [facility] (Lab) [address] [facility] [place] [place], [address], 10/24/2022 20:45:57 10/24/20 22 10/24/2022 COMPR EHENS JENNIFER METAB OLIC PANEL aspartate aminotransfe rase 19 U/L 15-37 Not Available [facility] (Lab) [address] [place], [address], 10/24/2022 20:45:57 10/24/20 22 10/24/2022 COMPR EHENS JENNIFER METAB OLIC PANEL bilirubin, total 0.70 mg/dL 0.20-1 .30 Not Available [facility] (Lab) [address] [place], [address], 10/24/2022 20:45:57 10/24/20 22 10/24/2022 COMPR EHENS JENNIFER METAB OLIC PANEL calcium 8.9 mg/dL 8.4-10 .2 Not Available [facility] (Lab) [address] [place], [address], 10/24/2022 20:45:57 10/24/20 22 10/24/2022 COMPR EHENS JENNIFER METAB OLIC PANEL total protein 6.8 g/dL 6.3-8. 2 Not Available [facility] (Lab) [address] [place], [address], 10/24/2022 20:45:57 10/24/20 22 10/24/2022 COMPR EHENS JENNIFER METAB OLIC PANEL albumin 4.1 g/dL 3.4-5. 0 Not Available [facility] (Lab) [address] [place], [address], 10/24/2022 20:45:57 10/24/20 22 10/24/2022 COMPR EHENS JENNIFER METAB OLIC PANEL globulin 2.7 g/dL 2.6-4. 2 Not Available [facility] (Lab) [address] [place], [address], 10/24/2022 20:45:57 10/24/20 22 10/24/2022 COMPR EHENS JENNIFER METAB OLIC PANEL A/G ratio 1.5 ratio 1.0-2. 0 Not Available [facility] (Lab) [address] [place], [address], 10/24/2022 20:45:57 10/24/20 22 10/24/2022 LIPID PANEL cholesterol 197 mg/dL 140-19 9 NIH ALIX NSUS RECOM MENDA TION FOR LOUIS STERO L: ADULT CHILD LOW RISK: <200 <170 BORDE RLINE : <200- 239 ----- HIGH RISK: >240 >200 Not Available [facility] (Lab) [address] [place], [address], 10/24/2022 20:45:51 10/24/20 22 10/24/2022 LIPID PANEL triglyceride s 191 mg/dL 0-150 high NIH ALIX NSUS REPOR T RECOM MENDA TION FOR TRIGL YCERI TOÑA: ADULT CHILD LOW RISK: <150 ----- BODER LINE: 150-1 99 ----- HIGH RISK: >200 ----- Not Available [facility] (Lab) [address] [place], [address], 10/24/2022 20:45:51 10/24/20 22 10/24/2022 LIPID PANEL HDL cholesterol 40 mg/dL 40- Not Available [facility] (Lab) [address] [place], [address], 10/24/2022 20:45:51 10/24/20 22 10/24/2022 LIPID PANEL LDL cholesterol, calculated 119 mg/dL 0-130 NIH ALIX NSUS REPOR T RECOM MENDA TIONS FOR LDL: ADULT CHILD LOW RISK <130 <110 (OPTI MAL LDL) <100 ----- BORDE RLINE : 130-1 59 ----- HIGH RISK: >160 >130 A TRIGL YCERI DE RESUL T >400 INVAL IDATE S THE CALCU LATIO N FOR LDL FRACT IONAT ION - THE LDL RESUL T WILL NOT BE REPOR GOPI. Not Available [facility] (Lab) [address] [place], [address], 10/24/2022 20:45:51 10/24/20 22 10/24/2022 URINA LYSIS COMPL ETE, IRIS color light- orange abnormal Not Available [facility] (Lab) [address] [place], [address], 10/24/2022 19:41:09 10/24/20 22 10/24/2022 URINA LYSIS COMPL ETE, IRIS appear hazy Not Available [facility] (Lab) [address] [place], [address], 10/24/2022 19:41:09 10/24/20 22 10/24/2022 URINA LYSIS COMPL ETE, IRIS specific gravity 1.024 1.001- 1.030 Not Available [facility] (Lab) [address] [place], [address], 10/24/2022 19:41:09 10/24/20 22 10/24/2022 URINA LYSIS COMPL ETE, IRIS pH 5.5 pH_un its 5.0-9. 0 Not Available [facility] (Lab) [address] [place], [address], 10/24/2022 19:41:09 10/24/20 22 10/24/2022 URINA LYSIS COMPL ETE, IRIS leukocytes negati ve netta/u L negati ve- Not Available [facility] (Lab) [address] [place], [address], 10/24/2022 19:41:09 10/24/20 22 10/24/2022 URINA LYSIS COMPL ETE, IRIS nitrite negati ve negati ve- Not Available [facility] (Lab) [address] [facility] [place], [address], 10/24/2022 19:41:09 10/24/20 22 10/24/2022 URINA LYSIS COMPL ETE, IRIS protein negati ve mg/dL negati ve- Not Available [facility] (Lab) [address] [place], [address], 10/24/2022 19:41:09 10/24/20 22 10/24/2022 URINA LYSIS COMPL ETE, IRIS glucose normal mg/dL normal - Not Available [facility] (Lab) [address] [place], [address], 10/24/2022 19:41:09 10/24/20 22 10/24/2022 URINA LYSIS COMPL ETE, IRIS ketones negati ve mg/dL negati ve- Not Available [facility] (Lab) [address] [place], [address], 10/24/2022 19:41:09 10/24/20 22 10/24/2022 URINA LYSIS COMPL ETE, IRIS urobilinogen normal mg/dL normal - Not Available [facility] (Lab) [address] [place], [address], 10/24/2022 19:41:09 10/24/20 22 10/24/2022 URINA LYSIS COMPL ETE, IRIS bilirubin negati ve mg/dL negati ve- Not Available [facility] (Lab) [address] [place], [address], 10/24/2022 19:41:09 10/24/20 22 10/24/2022 URINA LYSIS COMPL ETE, IRIS blood 0.03 mg/dL negati ve- abnormal Not Available [facility] (Lab) [address] [place], [address], 10/24/2022 19:41:09 10/24/20 22 10/24/2022 URINA LYSIS COMPL ETE, IRIS white blood cells 0-8 /i??h pfi?? 0-8 Not Available [facility] (Lab) [address] [place], [address], 10/24/2022 19:41:09 10/24/20 22 10/24/2022 URINA LYSIS COMPL ETE, IRIS red blood cells 0-4 /i??h pfi?? 0-4 Not Available [facility] (Lab) [address] [place], [address], 10/24/2022 19:41:09 10/24/20 22 10/24/2022 URINA LYSIS COMPL ETE, IRIS bacteria packed field abnormal Not Available [facility] (Lab) [address] [place], [address], 10/24/2022 19:41:09 10/24/20 22 10/24/2022 URINA LYSIS COMPL ETE, IRIS mucous few /i??l pfi?? abnormal Not Available [facility] (Lab) [address] [place], [address], 10/24/2022 19:41:09 10/24/20 22 10/24/2022 URINA LYSIS COMPL ETE, IRIS squamous epithelial many /i??l pfi?? abnormal Not Available [facility] (Lab) [address] [place], [address], 10/24/2022 19:41:09 10/24/20 22 10/24/2022 URINA LYSIS COMPL ETE, IRIS hyaline cast occasi onal /i??l pfi?? none seen- abnormal Not Available [facility] (Lab) [address] [place], [address], 10/24/2022 19:41:09 10/24/20 22 10/24/2022 URINA LYSIS COMPL ETE, IRIS calcium oxalate crystal occasi onal /i??h pfi?? none seen- abnormal Not Available [facility] (Lab) [address], [place], [address], 10/24/2022 19:41:09 11/15/19 23 11/14/2022 XR, knee No observ ation record ed. [id number] [facility] [address], [place], [address], 01/02/2023 17:45:45 11/20/19 23 11/20/2022 LDCT, chest , for lung cance r scree dhaval [facility] [address] [facility] [address], [place] [address] Patimignon t Name: MADYSON FIGUEROA [employer] ion #: [id number] Sex: F : 1964 3 Locati on: RAD Attend ing Physic vin: NILES REAVES Orderi ng Physic vin: NILES REAVES Exam Date: 023 1:33 PM Exam Name: CT LOW DOSE CNCR SCREEN ING Admitt ing Diagno sis(es ): RADIOL OGY REPORT - FINAL EXAM: CT LOW DOSE CNCR SCREEN ING HISTOR Y: PERSON AL HISTOR Y OF NICOTI NE DEPEND ENCE 57-yea r-old female with lung cancer screen ing, former smoker . COMPAR LEANA: CT scan of the chest dated 2021. TECHNI QUE: CT low dose lung screen ing protoc ol was utiliz ed. Noncon trast axial images were obtain ed using low dose comput erized tomogr aphy. Images were recons tructe d in martinez l, sagitt al, and axial planes . The images were review ed with lung window , soft tissue , and bone window settin gs. This CT exam was perfor med using one or more of the follow ing dose reduct ion techni ques: Automa gopi exposu re contro l, adjust ment of the mA and/or kV accord ing to patien t size, or use of iterat jennifer recons tructi on techni que. Page 1 of 2 [facility] Patimignon t Name: MADYSON FIGUEROA Access ion #: [id number] Sex: F : 1964 3 Exam Date: 023 1:33 PM Exam Name: CT LOW DOSE CNCR SCREEN ING Admitt ing Diagno sis(es ): FINDIN GS: No suspic ious pulmon yudy nodule s, consol idativ e infilt rates, pneumo thorax , pleura l effusi ons, or pulmon yudy edema. No suspic ious medias tinal or axilla ry adenop athy. The heart is mildly enlarg ed. There are martinez ry artery calcif icatio ns. No thorac ic aortic aneury sm. There is a modera te-siz ed paraes ophage al hiatal hernia . The gallbl adder is surgic ally absent . IMPRES JESSICA: 1. No suspic ious pulmon yudy nodule s or other acute intrat horaci c proces s. 2. Cardio megaly and martinez ry artery diseas e. 3. Postop erativ e change s of cholec ystect graham. 4. Modera te-siz ed paraes ophage al hiatal hernia . Lung-R ADS 1. Negati ve. Contin ue annual screen ing with LDCT in 12 months . Create d and electr onical ly signed by: Niko cisneros MD Signed Date: 023 2:33 PM (CT) Dictat ed by: Niko cisneros MD DD: 023 2:33 PM (CT) DT: 023 2:33 PM (CT) Page 2 of 2 [id number] [facility] (Imaging) [address] [place], [address], 01/02/2023 17:45:45 11/21/19 23 11/20/2022 penelope elias lindsay, bilat [facility] [address] [place] [address] Patien t Name: MADYSON FIGUEROA Access ion #: [id number] Sex: F : 1964 2 Locati on: RAD Attend ing Physic vin: NILES REAVES Orderi ng Physic vin: NILES REAVES Exam Date: 023 1:26 PM Exam Name: MG ARANDA BREAST LINDSAY BILAT Admitt ing Diagno sis(es ): MAMMOG MATEO REPORT - FINAL EXAM: MG ARANDA BREAST LINDSAY BILAT HISTOR Y: SCREEN ING MAMMOG ANNAMARIA 57-yea r-old female with no curren t breast compla ints. COMPAR LEANA: 2020, 2019 TECHNI QUE: Bilate ral CC and MLO views of the breast s were perfor med. Digita l Mammog mateo images were obtain ed. CAD (compu ter assist ed detect ion) was utiliz ed. 3D Digita l breast tomosy nthesi s was perfor med and used in the interp retati on of images . FINDIN GS: There are scatte red areas of fibrog landul ar densit y. No masses , asymme tries, suspic ious calcif icatio ns, or jose ectura l Page 1 of 2 [facility] Name: MADYSON FIGUEROA Access ion #: [id number] Sex: F : 1964 2 Exam Date: 023 1:26 PM Exam Name: MG ARANDA BREAST LINDSAY BILAT Admitt ing Diagno sis(es ): distor tion are seen. IMPRES JESSICA: BIRADS 1: Assess ment comple te. Negati ve. Recomm end annual screen ing mammog mateo. Accord ing to the [employer], yearly mammog remberto are recomm ended starti ng at age 40 and contin uing as long as the woman is in good health . Clinic al Breast Exam should be part of the period health exam-a bout every 3 years for women in their 20s and 30s and every year for women 40 and over. Breast self-e xam is an option for women in their 20s. Any breast change noted on the breast self-e xam she would be report ed prompt ly to the the [facility]'s health care provid er. A negati ve mammog mateo report should not discou rage follow -up or biopsy of a clinic ally signif icant findin g and/or abnorm ality. Dense breast tissue may obscur e small neopla sms. This theresa elias has been entere d into a mammog mateo remind er system with a target date for her next mammog annamaria. Create d and electr onical ly signed by: Niko cisneros MD Signed Date: 023 1:25 PM (CT) Dictat ed by: Niko cisneros MD DD: 023 1:25 PM (CT) DT: 023 1:25 PM (CT) Page 2 of 2 [id number] [facility] (Imaging) [address] [place], [address], 01/02/2023 17:45:45 02/07/20 23 02/06/2023 , echo ardio gram No observ ation record ed. [email or web address] [facility] [address], [place], [address], 02/28/2023 11:42:07 06/21/20 23 06/21/2023 XR, knee No observ ation record ed. [email or web address] [address] [place] [address], [address], 06/25/2023 13:09:57 12/27/19 24 12/25/2023 XR, knee No observ ation record ed. [email or web address] [address] [place] [address], [address], 12/30/2023 08:57:43 12/30/19 24 12/30/2023 MAMMO , penelope puentes, digit al, bilat eral No observ ation record ed. [email or web address] [facility] [address] [place], [address], 03/15/2024 13:28:32 12/30/19 24 12/30/2023 LDCT, chest , for lung cance r penelope puentes No observ ation record ed. [facility] ([facility] Sched[facility]) [address], [place], [address], 03/04/2024 16:10:04 05/13/20 24 05/12/2024 US, echoc ardio gram No observ ation record ed. [email or web address] [facility] [address], [place], [address], 06/03/2024 17:19:04 05/13/20 24 05/12/2024 US, doppl er, venou s No observ ation record ed. [email or web address] [facility] [address], [place], [address], 06/03/2024 17:19:22 12/14/19 25 12/11/2024 XR, knee, 3 view No observ ation record ed. [email or web address] [facility] [address], [place], [address], 12/15/2024 09:21:57 Result Notes None recorded. Problems Name Problem SNOMED Code Status Onset Date Resolution Date Notes Provider Name and Address Organization Details Recorded Time Cyst of left breast 9929203620580 9101 Active Not Available [facility] 3 17:44:21 Amenorrhea 90569515 Active Not Available [facility] 3 17:44:21 Urinary incontinen ce 758823516 Active Not Available [facility] 3 17:44:21 Liver function tests outside reference range 258600729 Active Not Available [facility] 3 17:44:21 Mammograph y abnormal 058910757 Active Not Available [facility] 3 17:44:21 Insomnia 179858090 Active Not Available [facility] 3 17:44:21 Microscopi c hematuria 304870864 Active Not Available [facility] 3 17:44:21 Menopausal flushing 636896081 Active Not Available [facility] 3 17:44:21 Sciatica 74118369 Active Not Available [facility] 3 17:44:21 Gastroesop hageal reflux disease 426211338 Active Not Available [facility] 3 17:44:21 Sliding hiatus hernia 189839270 Active 2022 Not Available [facility] 3 17:44:21 Renal impairment 715995475 Active Not Available [facility] 3 17:44:21 Shoulder joint pain 617561665 Active Not Available [facility] 3 17:44:22 Pain in thoracic spine 554063983 Active Not Available [facility] 3 17:44:22 Anemia 373738750 Active Not Available [facility] 3 17:44:22 Chronic sciatica 923660586 Active Not Available [facility] 3 17:44:22 Blood in urine 57764584 Active Not Available [facility] 3 17:44:22 Neuropathy 488733161 Active Not Available [facility] 3 17:44:22 Osteoarthr itis 766867841 Active Not Available [facility] 3 17:44:22 Hypothyroi dism 34218410 Active Not Available [facility] 3 17:44:22 Obesity 513907348 Active Not Available [facility] 3 17:44:22 Foot pain 88771102 Active Not Available [facility] 3 17:44:22 Urgent desire to urinate 79922205 Active Not Available [facility] 3 17:44:22 Smoker 44632185 Active Not Available [facility] 3 17:44:23 Hyperglyce johnny 59619134 Active Not Available [facility] 3 17:44:23 COVID-19 493076370 Active 2020 Not Available [facility] 3 17:44:23 Ex-smoker 9861556 Active 2019 Not Available [facility] 3 17:44:23 Essential hypertensi on 62582528 Active 2022 Niles Reaves, [employer]COVER CUTTER [address] [facility], [facility] [address], [place], [address] , [place] [facility] 3 13:49:30 Urinary symptoms 301801911 Active 2022 RUTHIE Benz [address], [place], [address] , [place] [facility] 3 13:50:05 Bilateral osteoarthr itis of knees 1063270687022 07 Active 2023 CONSUELO Biggs [address], [address], [place], [address] , [facility] 4 12:00:54 Vitamin D deficiency 02880010 Active 2023 CONSUELO Biggs [address], [address], [place], [address] , [place] [facility] 4 12:25:50 Cobalamin deficiency 566431693 Active 2023 CONSUELO Biggs [address], [address], [place], [address] , [facility] 4 12:25:58 Nicotine dependence 69360570 Active 2023 CONSUELO Biggs [address], [address], [place], [address] , [facility] 4 12:36:05 Morbid obesity 577037101 Active 2023 CONSUELO Biggs [address], [address], [place], [address] , [facility] 4 13:15:56 Depressive disorder 59655914 Active 2023 CONSUELO Biggs [address], [address], [place], [address] , [facility] 4 13:16:37 Swelling of bilateral lower limbs 912848396 Active 2023 RUSSELL Diamond [address], [address], [place], [address] , [facility] 4 08:31:43 Liver enzymes level above reference range 541562120 Active 2023 Sin Mckeon [employer]-C [address] [address], [place], [address] , [facility] [employer] [facility] 4 08:33:52 Acute situationa l disturbanc e 765989965 Active 2023 Sin Mckeon [employer] [address] [address], [place], [address] , [facility] [employer] [facility] 4 12:00:07 Claustroph obia 03654657 Active 2023 Boni Mccarty MD [address] [address], [place], [address] , [facility] [employer] [facility] 4 11:27:49 Problem Notes None recorded. Procedures Surgical History Date Name Laterality Status Provider Name and Address Organization Details Recorded Time colonoscopy completed Not Available [facility] 01/02/2023 17:43:00 Imaging Results Imaging Date Name Status LastModified by Organization Details LastModified Time 11/20/2022 LDCT, chest, for lung cancer screening completed [id number] [facility] (Imaging) [address] [place], [address], 01/02/2023 17:45:45 11/20/2022 screening breast lindsay, bilat completed [id number] [facility] (Imaging) [address] [place], [address], 01/02/2023 17:45:45 11/14/2022 XR, knee completed [id number], [place], [address], 01/02/2023 17:45:45 02/06/2023 US, echocardiogram completed [facility] [address], [place], [address], 02/28/2023 11:42:07 06/21/2023 XR, knee completed [email or web address] [address] [facility] [facility] [place], [address], 06/25/2023 13:09:57 12/25/2023 XR, knee completed [address] [address], [place], [address], 12/30/2023 08:57:43 12/30/2023 MAMMO, screening, digital, bilateral completed [address] [place], [address], 03/15/2024 13:28:32 12/30/2023 LDCT, chest, for lung cancer screening completed [facility] ([facility]) [address] [place], [address], 03/04/2024 16:10:04 05/12/2024 US, echocardiogram completed [email or web address] [facility] [address], [address], 06/03/2024 17:19:04 05/12/2024 US, doppler, venous completed [email or web address] [facility] [address], [place], [address], 06/03/2024 17:19:22 12/11/2024 XR, knee, 3 view active [email or web address] [address], [address], 12/15/2024 09:21:57 Procedure Notes None recorded. Medical Equipment None Reported. Allergies Allergen ID Allergen Name Allergen Category Reaction Reaction Severity Criticality Documentation Date Start Date Code Code System Note Provider Name and Address Organization Details Recorded Time 86672 tramadol medicatio n Not available Not available Not available 01/02/2023 89302 RxNorm Not Available [facility] 17:45:43 72593 naproxen medicatio n nausea Not available Not available 01/02/2023 7258 RxNorm Not Available [facility] 17:45:43 Medications Name Sig Start Date Stop Date Status Note LastModified by Organization Details LastModified Time losartan 50 mg tablet TAKE 1 TABLET BY MOUTH ONCE DAILY 10/20 completed Not Available Not Available Not Available cyclobenza kalpana 10 mg tablet TAKE 1 TABLET BY MOUTH THREE TIMES DAILY NEEDED FOR MUSCLE SPASM 10/20 completed Not Available Not Available Not Available atorvastat in 10 mg tablet TAKE 1 TABLET BY MOUTH ONCE DAILY active Not Available Not Available No t Available ibuprofen 800 mg tablet active Not Available Not Available Not Available fluconazol e 150 mg tablet TAKE TABLET BY MOUTH A ONE TIME DOSE 10/20 completed Not Available Not Available Not Available valacyclov ir 1 gram tablet Take 1 tablet every 12 hours by oral route for 7 days. 11/11 completed Not Available Not Available Not Available hydrocodon e 5 mg-acetami nophen 325 mg tablet Take 1 tablet every 6-8 hours by oral route as needed for 7 days. 11/11 completed Not Available Not Available Not Available meloxicam 15 mg tablet TAKE 1/2 (ONE-HALF ) TABLET BY MOUTH DAILY IN THE MORNING AND 1/2 (ONE-HALF ) AT NIGHT, TAKE WITH FOOD. STOP IF STOMACH IS UPSET active Not Available Not Available No t Available Synthroid 125 mcg tablet TAKE 1 TABLET BY MOUTH ONCE DAILY AT LEAST ONE HOUR BEFORE ANY OTHER MEDICATIO NS OR FOOD active Not Available Not Available No t Available prednisone 20 mg tablet Take 1 tablet every day by oral route for 5 days. active Not Available Not Available No t Available penicillin V potassium 500 mg tablet 02/12 completed Not Available Not Available Not Available metronidaz ole 500 mg tablet 02/12 completed Not Available Not Available Not Available phentermin e 37.5 mg tablet Take 1 tablet every day by oral route for 30 days. 11/11 completed Not Available Not Available Not Available tramadol 50 mg tablet 02/12 completed Not Available Not Available Not Available oxycodone- acetaminop hen 5 mg-325 mg tablet TAKE 1 TABLET BY MOUTH EVERY 4 HOURS NEEDED FOR PAIN FOR UP TO 7 DAYS 11/11 completed Not Available Not Available Not Available alprazolam 0.25 mg tablet Take 1 tablet 3 times a day by oral route as needed for 10 days. active Not Available Not Available No t Available lorazepam 0.5 mg tablet TAKE 1 TABLET BY MOUTH 45 MINUTES BEFORE MRI. MAY REPEAT AFTER 2-3 HOURS IF NEEDED. active Not Available Not Available No t Available pantoprazo le 40 mg tablet,del ayed release TAKE 1 TABLET BY MOUTH ONCE DAILY active Not Available Not Available No t Available Cipro 500 mg tablet Take 1 tablet every 12 hours by oral route for 7 11/11 completed Not Available Not Available Not Available buspirone 10 mg tablet Take one tablet PO BID active Not Available Not Available No t Available levothyrox ine 150 mcg tablet TAKE 1 TABLET BY MOUTH ONCE DAILY AT LEAST ONE HOUR BEFORE ANY OTHER MEDICATIO NS OR FOOD 02/07 completed Not Available Not Available Not Available gabapentin 300 mg capsule 06/18 completed Not Available Not Available Not Available omeprazole 20 mg capsule,de layed release TAKE ONE CAPSULE BY MOUTH EVERY DAY active Not Available Not Available No t Available lisinopril 5 mg tablet Take 1 tablet every day by oral route for 90 days. 07/20 completed Not Available Not Available Not Available furosemide 20 mg tablet Take 1 tablet every day by oral route as needed for 90 days. active Not Available Not Available No t Available Synthroid 112 mcg tablet Take 1 tablet every day by oral route. active Not Available Not Available No t Available gabapentin 100 mg capsule Take 1 capsule 3 times a day by oral route for 90 days. 10/20 completed Not Available Not Available Not Available lorazepam 1 mg tablet Take 1 tablet by mouth 1 hour prior to MRI on 04/14/24. Do not drive while taking this medicatio n active Not Available Not Available No t Available ibuprofen 600 mg tablet Take 1 tablet 3 times a day by oral route as needed for 90 days. active Not Available Not Available No t Available levofloxac in 500 mg tablet TAKE 1 TABLET BY MOUTH ONCE DAILY active Not Available Not Available No t Available oxybutynin chloride 5 mg tablet TAKE 1 TABLET TWICE A DAY active Not Available Not Available No t Available losartan 100 mg tablet Take one tab po daily active Not Available Not Available No t Available amoxicilli n 875 mg-potassi um clavulanat e 125 mg tablet 11/11 completed Not Available Not Available Not Available oxycodone 5 mg tablet Take 1 tablet every day by oral route as needed. active Paper Rx given to patien t--DMB Not Available Not Available Not Available coenzyme Q10 100 mg capsule Take 1 capsule every day by oral route. 11/11 completed Not Available Not Available Not Available Centrum Silver One tablet PO daily 2018 active Not Available Not Available Not Avai lable Tylenol Arthritis Pain Take per package instructi ons 2018 active Not Available Not Available Not Avai lable cholecalci ferol (vitamin D3) 50 mcg (2,000 unit) capsule Take 1 capsule every day by oral route. active Not Available Not Available No t Available Toviaz 4 mg tablet,ext ended release Take 1 tablet every day by oral route. active Not Available Not Available No t Available tranexamic acid 650 mg tablet 02/12 completed Not Available Not Available Not Available Chantix Continuing Month Box 1 mg tablet Take 1 tablet twice a day by oral route. active Not Available Not Available No t Available Chantix Starting Month Box 0.5 mg (11)-1 mg (42) tablets in dose pack Take per package instructi ons active Not Available Not Available No t Available Nisland 3-6-9 1,200 mg capsule Take 1 capsule twice a day by oral route as directed for 30 days. 11/11 completed Not Available Not Available Not Available Flowflex COVID-19 Antigen Home Test kit active Not Available Not Available Not Available Paxlovid 300 mg (150 mg x 2)-100 mg tablets in a dose pack TAKE 3 TABLETS TOGETHER (TWO 150 MG NIRMATREL VIR TABLETS AND ONE 100 MG RITONAVIR TABLET) BY MOUTH TWICE DAILY FOR 5 DAYS. 11/11 completed Not Available Not Available Not Available Vitals Date Recorded Body mass index (BMI) Body height Oxygen saturation Oxygen saturation in Arterial blood by Pulse oximetry Heart rate Body temperature Body weight Systolic blood pressure Diastolic blood pressure Provider Name and Address Organization Details Last Updated DateTime 2 38 kg/m2 157.48 cm 95 % 95 % 69 /min 96.4 [degF] 36345.2 1 g 140 mm[Hg] 90 mm[Hg] Not Available [facility] 3 17:43:40 Date Recorded Body mass index (BMI) Body height Body weight Provider Name and Address Organization Details Last Updated DateTime 11/21/2022 37.3 kg/m2 157.48 cm 49086.84 g Not Available [facility] 01/02/2023 17:43:50 Date Recorded Body height Body mass index (BMI) Body weight Body temperature Oxygen saturation Oxygen saturation in Arterial blood by Pulse oximetry Heart rate Systolic blood pressure Diastolic blood pressure Provider Name and Address Organization Details Last Updated DateTime 4 157.48 cm 40.4 kg/m2 782411. 91 g 97.5 [degF] 94 % 94 % 74 /min 130 mm[Hg] 80 mm[Hg] Jo-Ann Coburn RN [facility] [employer] 4 11:38:21 Date Recorded Body height Body mass index (BMI) Body weight Body temperature Heart rate Oxygen saturation Oxygen saturation in Arterial blood by Pulse oximetry Systolic blood pressure Diastolic blood pressure Provider Name and Address Organization Details Last Updated DateTime 4 157.48 cm 40.8 kg/m2 895227. 1 g 97.8 [degF] 85 /min 98 % 98 % 120 mm[Hg] 78 mm[Hg] Aam Bender RN [facility] [employer] 4 08:27:19 Date Recorded Body height Provider Name an d Address Organization Details Last Updated DateTime 04/07/2024 157.48 cm Carmen Cruz RN [facility] [employer] 04/07/2024 11:02:29 Social History Question Answer Notes LastModified by Organization Details LastModified Time Tobacco Smoking Status Former Smoker Quit 9 Not Available [facility] 01/02/2023 17:42:51 Do You Have An Advance Directive? No MIGRATION.126 [id number] Information not available 01/02/2023 What Is Your Level Of Alcohol Consumption? Occasional MIGRATION.401 [id number] Information not available 01/02/2023 What Is Your Level Of Caffeine Consumption? Moderate MIGRATION.194 1132014 Information not available 01/02/2023 What Is Your Code Status? Full Code MIGRATION.318 [id number] Information not available 01/02/2023 In The 14 Days Before Symptom Onset, Have You Had Close Contact With A Laboratory-con firmed COVID-19 While That Case Was Ill? Yes Pt Works In [employer] Filled MIGRATION.030 [id number] Information not available 01/02/2023 In The 14 Days Before Symptom Onset, Have You Had Close Contact With A Person Who Is Under Investigation For COVID-19 While That Person Was Ill? 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 REGULAR MIGRATION.864 [id number] Information not available 01/02/2023 What Is The Highest Grade Or Level Of School You Have Completed Or The Highest Degree You Have Received? [id number] MIGRATION.406 2558920 Information not available 01/02/2023 Do You Have An Electrostatic Air Filter? 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 Yes MIGRATION.196 [id number] Information not available 01/02/2023 Have There Been Any Changes To Your Family Or Social Situation? No MIGRATION.694 6495519 Information not available 01/02/2023 What Is The Fluoride Status Of Your Home? Unknown MIGRATION.525 [id number] Information not available 01/02/2023 When Did You Quit Smoking? 1-5yearssincelastcidenise e MIGRATION.033 6088214 Information not available 01/02/2023 Are There Any Guns Present In Your Home? No MIGRATION.612 [id number] Information not available 01/02/2023 Do You Have A Humidifier? No MIGRATION.768 [id number] Information not available 01/02/2023 Do You Use Insect Repellent Routinely? Yes MIGRATION.078 2022560 Information not available 01/02/2023 Do You Have A Medical Power Of Community Services Coordinator? No MIGRATION.788 [id number] Information not available 01/02/2023 Do You Have Moisture Problems In Your Home? No MIGRATION.980 7880911 Information not available 01/02/2023 What Was The Date Of Your Most Recent Tobacco Screening? 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 20-29packyears MIGRATION.754 3111520 Information not available 01/02/2023 Have You Ever Been Counseled For Unhealthy Alcohol Use? No MIGRATION.033 4264496 Information not available 01/02/2023 Do You Have Smoke And Carbon Monoxide Detectors In Your Home? Yes MIGRATION.382 9447471 Information not available 01/02/2023 At What Age Did You Start Smoking Tobacco? 11 MIGRATION.337 7096995 Information not available 01/02/2023 Are You Passively Exposed To Smoke? No MIGRATION.311 9900344 Information not available 01/02/2023 Are There Any Smokers In Your House? No MIGRATION.294 6821680 Information not available 01/02/2023 Do You Participate In Social Media? Yes MIGRATION.433 5306986 Information not available 01/02/2023 Do You Feel Stressed (tense, Restless, Nervous, Or Anxious, Or Unable To Sleep At Night)? [id number] MIGRATION.362 1132723 Information not available 01/02/2023 Do You Use Any Illicit Or Recreational Drugs? No MIGRATION.597 6181783 Information not available 01/02/2023 Do You Use Sunscreen Routinely? No MIGRATION.145 [id number] Information not available 01/02/2023 Has Tobacco Cessation Counseling Been Provided? Yes MIGRATION.672 [id number] Information not available 01/02/2023 On What Date Was Tobacco Cessation Counseling Provided? 10/24/2022 MIGRATION.799 [id number] Information not available 01/02/2023 How Many Years Have You Smoked Tobacco? 35 MIGRATION.682 8497224 Information not available 01/02/2023 Have You Recently Traveled Abroad? No MIGRATION.129 9248698 Information not available 01/02/2023 What Type Of Noise Exposure Are You Exposed To? NoExposureToExcessiveNois e MIGRATION.481 7634587 Information not available 01/02/2023 Are You Currently In School? No MIGRATION.215 4315931 Information not available 01/02/2023 Do You Have Any Dietary Restrictions? No MIGRATION.869 6346704 Information not available 01/02/2023 Do You Or Have You Ever Used Any Other Forms Of Tobacco Or Nicotine? No MIGRATION.248 7176814 Information not available 01/02/2023 Sex: Unknown Functional Status Question Answer Note LastModified by Organizat ion Details LastModified Time What is your exercise level? Occasional MIGRATION.[id number] 26 Information not available 01/02/2023 Mental Status None recorded. Family History Nothing Reported. Medical History No medical history recorded. Gynecological History Statement/Question Response Current Control Method Menopause Obstetrics History GPAL:G 0 P 0 0 0 0 Immunizations Vaccine Type Date Status Note Provider Nam e and Address Organization Details Recorded Time SARS-COV-2 (COVID-19) vaccine, UNSPECIFIED 1 completed Not Available [employer] 01/02/2023 17:45:39 Tdap 4 completed ZARINA Marshall, [place] [facility] [place] [employer] 11/11/2023 14:04:55 Past Encounters Encounter ID Performer Location Encounter Start Date Encounter Closed Date Diagnosis/Indication Diagnosis SNOMED-CT Code Diagnosis ICD10 Code Diagnosis Note [id number] [facility] [place] [address] [facility] [address] [place] [address] 07/25/2021 00:00:00 07/25/2021 10:53:15 [id number] [facility] [place] [address] [facility] [address] [place] [address] 10/20/2021 00:00:00 10/20/2021 16:21:22 [id number] [facility] [place] [address] [facility] [address] [place] [address] 07/23/2022 00:00:00 07/23/2022 09:18:17 [id number] [facility] [place] [address] [facility] [address] [place] [address] 10/24/2022 00:00:00 10/24/2022 12:37:19 [id number] [facility] [place] [address] [facility] [address] [place] [address] 11/21/2022 00:00:00 11/21/2022 20:05:31 [id number] CONSUELO Biggs [facility] [place] [address] [facility] [address] [place] [address] 11/11/2023 11:09:17 11/11/2023 12:41:33 Adult health examination 650199057 Z00.00 Will get routine labs. Covid vaccines- recommende d boosterFlu vaccine- UTD, 2022Tetanu s vaccine- updated todayShing les vaccine- recommende d Pap- patient thinks within last 5 yearsColon oscopy- up to date (2014), next due 2024.Mammo gram- ordered today Recommende d routine eye exams and dental cleanings. Bilateral osteoarthritis of knees 4930233693 24644 M17.0 Followed by ortho. Gets regular cortisone injections . Hyperlipid emia screening 657544344 Z13.220 Has not been taking medication regularly for the last 2 months. Hypothyroidism 63407333 E03.9 Has not been taking medicine consistent ly for last 2 months.Rec heck labs today. Essential hypertension 41595542 I10 Stable. Continue to monitor. Diabetes m ellitus screening 077232042 Z13.1 Screening mammography 24 419300 Z12.31 Administra tion of tetanus vaccine 249667253 Z23 Vitamin D deficiency 347 26161 E55.9 Not currently on supplement . Cobalamin deficiency 190 112891 E53.8 Not currently on supplement . Smoker 01674389 F17.200 Morbid obesity 993455570 E66.01 Discussed diet with patient in length, needs to work on decreasing carbs/suga r. Increase exercise.A dvised to keep food journal. Depressive disorder 1629 4570 F32.A Mainly seasonal due to stepsons and passing of late .Sh blayne does not want to pursue any further treatment at this time. 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, swelling later in the day-pt has appt with cardiologi on 04/07-water 5-6 glasses/da y-does not salt her food on the plate, no canned, box, frozen foods-obta ining labs Liver enzy mes level above reference range 833965504 R74.01 -enzymes elevated in November-hx of fatty liver-obta ining labs Hypothyroidism 32984165 E03.9 -obtaining labs Anemia screening 3781143 07 Z13.0 [id number] RUSSELL Diamond [facility] Primary Care [facility] [address] [facility] [address] [place] [address] 04/07/2024 10:47:53 04/07/2024 11:02:50 Health Concerns Section Related Observation LastModified by Organization Detai ls LastModified Time None Recorded Concern Status LastModified by Organization Details LastModified Time None Recorded Advance Directives Directive N: Payers Encounter Date Sequence Insurance Name Policy Number Policy Dominguez Covered Member ID Dominguez Member ID Guarantor Name 11/11/2023 1 [place] [id number] Madyson Leach Figueroa [id number] Madyson Leach Figueroa 03/19/2024 1 [place] [id number] Madyson Leach Figueroa [id number] Madyson Leach [employer] 04/07/2024 1 [place] [id number] Madyson Leach Figueroa [id number] Madyson L Figueroa Notes Date Note Type Note Provider Name and Address Organization Details Recorded Time 11/11/2023 text/html Pt. here for annual physical.She is concerned she is not losing weight. She has been struggling with depression more, states october is a hard month for her. She has not been compliant with taking medications for the last 2 months. CONSUELO Biggs [address] [address], [place], [address], [employer] [facility] [employer] 11/11/2023 13:17:11 03/19/2024 text/html pt is here leg swelling and RUSSELL Diamond [address] [address], [place], [address], [employer] 03/19/2024 08:45:16 OBGyn Episode No OBEpisode recorded.
--- OUTSIDE RECORDS SUMMARY | 2025-02-15 13:02 | XMS_ITS | CONTINUITY OF CARE DOCUMENT ---
Author Name gracie evitiarra Address Unknown Organization [facility] Address [address] [address] [place] [address] Phone [phone] Care Team Providers Care Subway Guard Name Role Phone Preeti ALDRICH, Sean Unavailable [phone] FAMILIA BUTCHER MD Unavailable FAMILIA BUTCHER MD Unavailable [phone] PROBLEMS Condition Status Date Provider Notes Cardiology examination active Sean Álvarez MD Family History of Hypertension: active Erasto Álvarez MD Chest pain active Sean Álvarez MD Abnormal EKG active Sean Álvarez MD HTN active Sean Álvarez MD Pulmonary hypertension active Sean Álvarez MD Obesity active Sean Álvarez MD Coronary atherosclerosis active eSan ward MD Shortness of breath active Sean Álvarez MD Swelling of bilateral legs active Sean forte MD ENCOUNTERS Date Type Provider Location Encounter Diag nosis - In-person encounter Office Visit Sean Álvarez MD [facility] - In-person encounter Office Visit Sean Álvarez MD [facility] Shortness of breathSwelling of bilateral legs - In-person encounter Office Visit Sean Álvarez MD [facility] Coronary atheroscler osis - In-person encounter Office Visit Sean Álvarez MD [facility] - In-person encounter Office Visit Sean Álvarez MD [facility] - In-person encounter Office Visit Sean Álvarez MD [facility] Cardiology examinationFamily History of Hypertension:Chest painAbnormal EKGHTNPulmonary hypertensionObesity VITAL SIGNS Date Observation Value Provider Body Mass Index (Ratio) 40.78 kg/m2 Erasto Álvarez MD blood pressure, cuff size regular Ke rri Stuart blood pressure, diastolic 80 mm[Hg] Ke rri Gruenenfelder blood pressure, systolic 132 mm[Hg] Luis Daniel ri Stuart oxygen saturation, oximetry 96 % Teresa Stuart respiratory rate E&M 12 /min Teresa G cristalenenfelder pulse rate 84 /min Teresa Malinie er weight E&M 223 [lb_av] Teresa Grjames er height E&M 62 [in_i] Teresa Gisell er Body Mass Index (Ratio) 40.97 kg/m2 Erasto Álvarez MD blood pressure, cuff size large Ke rri Gruenenfelder blood pressure, diastolic 84 mm[Hg] Ke rri Gruenenfelder blood pressure, systolic 142 mm[Hg] Ker ri Gruenenfeldjennifer oxygen saturation, oximetry 94 % Teresa Gruenenfelder respiratory rate E&M 12 /min Teresa G ruenenfelder pulse rate 86 /min Teresa Grbrijeshnenfe lder weight E&M 224 [lb_av] Teresa Gisell [facility] height E&M 62 [in_i] Teresa Gisell [facility] Body Mass Index (Ratio) 39.32 kg/m2 Erasto Álvarez MD blood pressure, diastolic 80 mm[Hg] Li nkLogic blood pressure, systolic 124 mm[Hg] Sylwia kLogic blood pressure, cuff size large Ke rri Joesphueneekaterina blood pressure, diastolic 80 mm[Hg] Ke rri Joesphueneria blood pressure, systolic 124 mm[Hg] Luis Daniel arndt Stuart oxygen saturation, oximetry 97 % Teresa Davidson respiratory rate E&M 14 /min [facility] pulse rate 90 /min Teresa Jameson [facility] weight E&M 215 [lb_av] Teresa Gisell [facility] height E&M 62 [in_i] Teresa Jameson [facility] Body Mass Index (Ratio) 38.77 kg/m2 Erasto Álvarez MD blood pressure, diastolic 88 mm[Hg] Fe saira Wisdom blood pressure, systolic 146 mm[Hg] Fel icia Wisdom oxygen saturation, oximetry 96 % Tayler Wisdom respiratory rate E&M 18 /min Tayler Wisdom pulse rate 78 /min Tayler Wisdom temperature E&M 97.4 [degF] Tayler Wisdom weight E&M 212 [lb_av] Tayler Wisdom height E&M 62 [in_i] Tayler Wisdom Body Mass Index (Ratio) 38.22 kg/m2 Erasto Álvarez MD blood pressure, cuff size regular Chandana Wahl blood pressure, diastolic 90 mm[Hg] Chandana Wahl blood pressure, systolic 130 mm[Hg] Candelario Wahl pulse rate 90 /min Aisha Wahl oxygen saturation, oximetry 98 % Aisha Wahl respiratory rate E&M 19 /min Aisha Wahl weight E&M 209 [lb_av] Aisha Wahl height E&M 62 [in_i] Aisha Vish Body Mass Index (Ratio) 38.04 kg/m2 Erasto Álvarez MD blood pressure, resting Yes Suzie rohan Wisdom blood pressure, diastolic 80 mm[Hg] Fe saira Wisdom blood pressure, systolic 145 mm[Hg] Fel icia Wisdom oxygen saturation, oximetry 98 % Tayler Wisdom pulse rate 82 /min Tayler Wisdom respiratory rate E&M 16 /min Tayler Wisdom weight E&M 208 [lb_av] Tayler Wisdom height E&M 62 [in_i] Tayler Wisdom ALLERGIES Allergy Name Onset Date Reaction Criticality Status LISINOPRIL Dry cough Dry cough High Criticality active NAPROSYN High Criticality active TRAMADOL High Criticality active HISTORY OF MEDICATION USE Medication Status Instructions Dates Provider Indications Com ments bupropion HCl 150 mg tablet extended release 24 hr active Sean Álvarez MD cholecalciferol (vitamin D3) 50 mcg (2,000 unit) capsule active Sean Álvarez MD atorvastatin 10 mg tablet active TAKE 1 TABLET BY MOUTH EVERY DAY Olga Donaldson NP furosemide 20 mg tablet active daily as needed Olga Donaldson NP oxybutynin chloride 5 mg tablet active twice a day Olga Donaldson NP atorvastatin 10 mg tablet completed Take 1 tablet by mouth once a day - Olga Donaldson NP losartan 100 mg tablet active Take 1 tablet once a day Olga Donaldson NP flaxseed oil 1,000 mg capsule completed 1 capsule once a day - Olga Donaldson NP MOBIC 15 MG TABS completed - Olga Donaldson NP pantoprazole 40 mg tablet,delayed release (DR/EC) active 1 tablet by mouth once a day Tayler Wisdom levothyroxine 125 mcg tablet active 1 tablet once a day Tayler Wisdom LISINOPRIL 5 MG ORAL TABLET completed TAKE 1 TABLET BY MOUTH EVERY DAY - Sean Álvarez MD #30, 30 days supply, Prescribed by LUCERO CHENEY, Filled 05/05/2020 SOCIAL HISTORY Date Observation Value Provider drug use no Sean Álvarez MD alcohol use, average drinks per day social Sean Álvarez MD alcohol use yes Sean Álvarez MD smoking, year quit 40 Sean forte MD number of years as a smoker 40 a Sean Álvarez MD smoking history, tot al pack/day 1ppd Sean Álvarez MD cigarette use yes Sean Carrion smoking status Former smoker Sean Álvarez MD smoking history, tot al pack/day 1ppd Olga Donaldson NP number of years as a smoker 40 a Olga Donaldson NP drug use no Olga lombardo NP alcohol use, average drinks per day social Olga Donaldsno NP alcohol use yes Olga lombardo NP cigarette use yes Olga rodriguez GRAIN PROCESSOR smoking status Former smoker Olga tompkins NP Exercise counseling Yes Olga Donaldson NP drug use no Sean Álvarez MD alcohol use, average drinks per day social Sean Álvarez MD alcohol use yes Sean Álvarez MD social history E&M S moking History: Tu saleem is a former smoker. Sean Álvarez MD social history reviewed E&M revi ewed - no changes required Sean Álvarez MD smoking, year quit 40 Teresa Angela enenfelder cigarette use yes Teresa Ordoñeznf elder smoking status Former smoker Teresa Ordoñez nfelder drug use no Sean Álvarez MD alcohol use, average drinks per day social Sean Álvarez MD alcohol use yes Sean Álvarez MD social history E&M S moking History: Tu saleem is a former smoker. Sean Álvarez MD social history reviewed E&M revi ewed - no changes required Sean Álvarez MD smoking, year quit 40 Tayler F ox cigarette use yes Tayler Wisdom smoking status Former smoker Tayler Wisdom smoking status Former smoker Shazia A St eele GRAIN PROCESSOR drug use no Shazia A Steel e GRAIN PROCESSOR alcohol use, average drinks per day social Shazia A Heard GRAIN PROCESSOR alcohol use yes Shazia A Steel e GRAIN PROCESSOR social history E&M S moking History: Tu saleem is a former smoker. Shazia A Heard GRAIN PROCESSOR social history reviewed E&M revi ewed - no changes required Shazia A Heard GRAIN PROCESSOR smoking, year quit 40 Aisha Bu sby cigarette use yes Aisha Fult[place] number of grandchildren Sean Álvarez MD U maya Álvarez MD drug use no Sean Álvarez MD alcohol use, average drinks per day social Sean Álvarez MD alcohol use yes Sean Álvarez MD social history E&M S moking History: Tu saleem is a former smoker. Sean Álvarez MD social history reviewed E&M revi ewed - no changes required Sean Álvarez MD smoking, year quit 40 Tayler Bob ox cigarette use yes Tayler Wisdom smoking status Former smoker Tayler Wisdom FUNCTIONAL STATUS Date Observation Value Provider HRA, CV Assess/Plan, Angina (inactive) Management Plan continue current therapy Olga Donaldson NP FAMILY HISTORY Family Member Condition Mother Family History of Hy pertension: Mother Family History of Di abetes: INSURANCE PROVIDERS Payer name Policy type / Coverage type [place] red green party ID [employer] [id number] ADVANCE DIRECTIVES Name Date DISCUSSED - NO DECISION MADE TREATMENT PLAN Date Name Performer [id number],C,I will start the pt on lipitor 10mg to keep the LDlL less than 70. Sean Álvarez MD [id number],C,w ill check an echo and have her come back Sean Álvarez MD [id number],C,W ill get her labs and then possibly start her on statins Sean Álvarez MD [id number],B, B P today: 124/80 P rior BP: 146/88 (10/18/2020) Sean Álvarez MD [id number],S,weight loss U maya Álvarez MD Cardiology:denies Sean Carrion Cardiology Sean Álvarez MD Cardiology:Echocardi agram shows elevated LA filling pressures E F okay c ontinue maximally tolerated exercise Sean Álvarez MD Cardiology:Compressi on advised N o intervention indicated V enous Doppler: 1 . No evidence of a deep vein thrombosis of the lower extremities bilaterally. 2 . Venous insufficiency of the left sapheno femoral junction. 3 . Significant venous insufficiency of the great saphenous vein bilaterally. 4 . Significant venous insufficiency of the left small saphenous vein. 5 . Significant venous insufficiency of the right femoral vein. Sean Álvarez MD Cardiology:This visi t has been a part of the consistent, comprehensive, and ongoing management of the chronic medical condition(s) listed above for the patient. Her updated medication list for this problem includes: Losartan 100 Mg Tablet (Losartan) ..... Take 1 tablet once a day Furosemide 20 Mg Tablet (Furosemide) ..... Daily as needed BP today: 132/80 P rior BP: 142/84 (04/07/2024) Sean Álvarez MD Cardiology:no recurrence. Lizeth Donaldson NP Cardiology:home BP r eadings 110-130/70-80's. BP today: 142/84 P rior BP: 124/80 (01/02/2023) Her updated medication list for this problem includes: Losartan 100 Mg Tablet (Losartan) ..... Take 1 tablet once a day Furosemide 20 Mg Tablet (Furosemide) ..... Daily as needed Olga Donaldson NP Cardiology: c ontinues on lipitor 10mg to keep the LDlL less than 70. 09/14/23 LDL 79 Olga Donaldson NP Cardiology: BLE swel ling L > R. L calf warm, no redness or pain with flexion or extension check ECHO and venous doppler with reflux Olga Donaldson NP Cardiology:increased SOB and BLE swelling L > R. L calf warm, no redness or pain with flexion or extension check ECHO and venous doppler with reflux Olga Donaldson NP Telehealth:I will st art the pt on lipitor 10mg to keep the LDlL less than 70. Sean Álvarez MD Cardiology:will check an echo an d have her come back Sean Álvarez MD Cardiology:Will get her labs and then possibly start her on statins Sean Álvarez MD Cardiology: B P today: 124/80 P rior BP: 146/88 (10/18/2020) Sean Álvarez MD Cardiology:weight loss Sean forte MD Cardiology Sean Álvarez MD Cardiology: T he following medications were removed from the medication list: Lisinopril 5 Mg Oral Tablet (Lisinopril) ..... Take 1 tablet by mouth every day Her updated medication list for this problem includes: Losartan Potassium 50 Mg Oral Tablet (Losartan potassium) ..... Take one tablet daily BP today: 146/88 P rior BP: 130/90 (06/08/2020) Sean Álvarez MD Cardiology:Patient h as no worsening shortness of breath Sean Álvarez MD Cardiology Shazia Heard NP Cardiology Shazia Heard NP Cardiology:will cont inue medical therapy. B P today: 130/90 P rior BP: 145/80 (05/17/2020) Shazia Heard NP Cardiology:Advised t he patient to adopt a low carb diet. Sean Álvarez MD Cardiology:Patient w as recently put on lisinopril and her BP has improved. Her BP also seems to correlate with her state of mind. When she is more stressed, her BP elevates. We will DC Lisinopril becuase the patient has had a dry cough and will start on Losartan 50mg per day BP today: 145/80 Sean Álvarez MD Cardiology:Patient w as referred to us because of her abnormal EKG, her EKG today appears normal and is largely unremarkable. Sean Álvarez MD Date Name Venous Doppler Bilat eral LE - Reflux Complete Echo COMPREHENSIVE METABO LIC PANEL, W/EGFR LIPID PANEL COMPREHENSIVE METABO LIC PANEL, W/EGFR LIPID PANEL Complete Echo Complete Echo HISTORY OF PROCEDURES Procedure Date Procedure Name Provider Procedure Notes S tatus Complex e/m visit add on Sean Álvarez MD completed EKG Sean Álvarez MD completed MARTÍN Álvarez MD completed MARTÍN Álvarez MD completed
--- OUTSIDE RECORDS SUMMARY | 2025-02-15 13:02 | XMS_ITS | Clinical Summary ---
Author Organization [facility] Address [address] [place] [address] Care Team Providers Care Machine Shop Lead Man Name Role Phone Reaves Niles Sami GAITANN-DIRECTOR SECURITY RISK MANAGEMENT Primary Care Provider Source Comments [facility],non-owned Affiliates and Associated Physician Practices is amultiple site organization consisting of ambulatory clinics and hospital sitesin [place], [place], [place] and [place]. This disclosure is being madepursuant to the Care Everywhere program and may not contain all information available regarding this patient. Last updated 18.[facility] Allergies No known active allergies Medications * Be aware that medications may not be up to date on this document. Alwaysverify current medications with the patient. LEVOTHYROXINE SODIUM PO Active OMEPRAZOLE PO Active OXYCODONE ER PO Acti ve Social History Tobacco Use Types Packs/Day Years Used Date Smoking Tobacco: Every Day Comments Unknown Sex and Gender Information Value Date Recorded Sex Assigned at Not on file Legal Sex Female 12:59 PM CDT Gender Identity Not on file Sexual Orientation Not on file Last Filed Vital Signs Vital Sign Reading Time Taken Comments Blood Pressure 128/80 08/27/2016 2:47 PM CDT Pulse 90 08/27/2016 2:47 PM CDT Temperature 36.9 C (98.5 F) 08/27/2016 2:47 PM CDT Respiratory Rate - - Oxygen Saturation - - Inhaled Oxygen Concentration - - Weight 88 kg (194 lb) 08/27/2016 2:47 PM CDT Height 157.5 cm (5' 2 ) 08/27/2016 2:47 PM CDT Body Mass Index 35.48 08/27/2016 2:47 PM CDT Plan of Treatment Health Maintenance Due Date Last Done Comments COLOGUARD (AGES 45-75) - COL ON CA SCREENING 1964 COLON MONITORING 1964 COLONOSCOPY - COLON CA SCREENING 1964 CT COLONOGRAPHY - COLON CA SCREENING 1964 Colorectal Cancer Screening 1964 FIT - COLON CA SCREENING 1964 FLEX SIG - COLON CA SCREENING 1964 LIPID TESTING 1964 MAMMOGRAM 1964 PAP SMEAR 1964 HIV SCREENING 1979 HEPATITIS C SCREENING 08/30/1982 DTAP/TDAP/TD VACCINES (1 - Tdap) 1983 PNEUMOCOCCAL VACCINE (1 of 2 - PCV) 1983 PNEUMOCOCCAL VACCINE 50+ (1 of 1 - PCV) 2014 ZOSTER VACCINE (1 of 2) 2014 COVID-19 VACCINE (1 - 2023-2 5 season) 2024 DEPRESSION SCREENING 11/04/2024 INFLUENZA VACCINE (Season Ended) 2025 Respiratory Syncytial Virus (RSV) Vaccine Pt: or over 60 yrs (1 - 1-dose 75+ series) 2039 HEPATITIS B VACCINE Aged Out No longe r eligible based on patient's age to complete this topic HIB VACCINE Aged Out No longer eligi ble based on patient's age to complete this topic HPV VACCINE Aged Out No longer eligi ble based on patient's age to complete this topic MENINGOCOCCAL (Group B) VACC INE SHARED DECISION-MAKING Aged Out No longer eligibl e based on patient's age to complete this topic MENINGOCOCCAL GROUPS A/C/Y/W VACCINE Aged Out No longer eligible b ased on patient's age to complete this topic Insurance [employer] Care Teams Machine Shop Lead Man Relationship Specialty Start Date End Date Niles Reaves, INFORMATION TECHNOLOGY ANALYST-DIRECTOR SECURITY RISK MANAGEMENT [address] [place] [id number] PCP - General Nurse Practitioner Family 08/27/16
--- OUTSIDE RECORDS SUMMARY | 2025-02-15 13:02 | XMS_ITS | Clinical Summary ---
Author Organization [facility] Address [address] [place] [address] Phone Care Team Providers Care Loss Claim Clerk Name Role Phone VIVIANA DICKEY MD Primary Care Provider Reason for Visit and Chief Complaint Pt presents for problem in addition to annual exam, gynecologic annual exam - The Chief Complaint is: WWE. Pt has not had a cycle in about 8 years and had some spotting in January Problems Includes: Problems addressed during this encounter and other active Problems Current Visit Onset Date Resolved Date Provider Ilana n Status History of Hyperlipidemia 03/02/2015 JIMMIE LÓPEZ RN MUSA Active Last Documented On 03/02/2015 11:52AM ; [facility] Note: Unchanged History of Thyroid Disorders 03/02/2015 JIMMIE LÓPEZ RN MUSA Active Last Documented On 03/02/2015 11:52AM ; [facility] Note: Unchanged History of Herpes Simplex Type II 01/23/2011 REBECCA TERAN Active Last Documented On 01/23/2011 8:37AM ; [facility] Note: Unchanged Past Visits Onset Date Resolved Date Provider Condition Status BENIGN NEOPLASM LG BOWEL 03/29/2015 JIMMIE LÓPEZ RN Andrea P BC Active Last Documented On 5 10:58AM ; [facility] Endometrial Hyperplasia 03/29/2015 LUIS ALFREDO LÓPEZ RN MUSA BC Active Last Documented On 5 11:10AM ; [facility] Note: Unchanged Nonpuerperal Uterine Hypertrophy 03/29/2015 JIMMIE LÓPEZ RN Andrea P BC Active Last Documented On 5 11:10AM ; [facility] Note: Unchanged Dysmenorrhea Secondary 03/02/2015 JIMMIE LÓPEZ RN MUSA BC Active Last Documented On 5 11:04AM ; [facility] Note: Unchanged Menorrhagia 03/02/2015 JIMMIE Salmon N MUSA BC Active Last Documented On 5 11:04AM ; [facility] Note: Unchanged Tobacco Use 03/02/2015 JIMMIE Salmon N MUSA BC Active Last Documented On 5 11:52AM ; [facility] Note: Unchanged - 10 a day Fam Hx-Cardiovas Dis NEC 03/01/2015 JOB LÓPEZ RN NP BC Active Last Documented On 5 8:25AM ; [facility] Note: Unchanged FAM HX-DIABETES MELLITUS 03/01/2015 JOB LÓPEZ RN NP BC Active Last Documented On 5 8:25AM ; [facility] Note: Unchanged Uterine Neoplasm, Benign Leiomyoma 03/01/2015 JIMMIE LÓPEZ RN N P BC Active Last Documented On 5 8:24AM ; [facility] 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 JOSUÉ CHAN ENDOC RINE S/P RADIOACTIVE IODINE [place] Plan of Treatment - Weight loss diet - Last Documented On 04/16/2024 11:40AM ; [facility] - Clinical summary provided to patient - Last Documented On 04/16/2024 11:40AM ; [facility] PT TO CALL WITH ANY CHANGE IN STATUS ALL QUESTIONS ANSWERED WITH UNDERSTANDING VERBALIZED BY PT. - Last Documented On 04/16/2024 11:40AM ; [facility] Pending Tests Order Diagnosis Results Due Ordering Tu ruel[facility]iology @ other - *MAMMOGRAPHY SCREENING MAMMOGRAM Encntr screen mammogram for malignant neoplasm of breast 01/02/25 JIMMIE LÓPEZ RN NP BC Last Documented On 4 3:40PM ; [facility] Instructions to patient Instructions for patient ER if bleeding through reg. sized pad/tampon < 1 hour, ER pelvic pain precautions given Last Documented On 4 9:21AM ; [facility] Instructions for patient : p atient is to keep a menstrual diary to help with further evaluation and treatment Last Documented On 4 9:18AM ; [facility] Instructed to call if excess tamara bleeding or abdominal/pelvic pain Last Documented On 4 8:35AM ; [facility] Instructions For Patient: Mo nthly Self Breast Exam Last Documented On 4 8:35AM ; [facility] Recommend diet and exercise at least 30 min three times per week Last Documented On 4 8:35AM ; [facility] Education and Decision Aids were provided during visit for: Patient Education: Daily noah cium and vitamin D Last Documented On 4 8:35AM ; [facility] Assessments Includes: Assessments from this encounter Findings - [Z01.411 - Encounter for gynecological examination (general) (routine) with abnormal findings] Routine gynecological exam with abnormal findings - Last Documented On 04/16/2024 11:40AM ; [facility] - [N76.0 - Acute vaginitis] Vaginitis - Last Documented On 04/16/2024 11:40AM ; [facility] - [N95.0 - Postmenopausal bleeding] Postmenopausal bleeding - Last Documented On 04/16/2024 11:40AM ; [facility] - [Z12.4 - Encounter for screening for malignant neoplasm of cervix] Screen malignant neoplasm cervix - Last Documented On 04/16/2024 11:40AM ; [facility] Instructions Includes: Instructions from this encounter Instructions to patient Instructions for patient ER if bleeding through reg. sized pad/tampon < 1 hour, ER pelvic pain precautions given Last Documented On 4 9:21AM ; [facility] Instructions for patient : p atient is to keep a menstrual diary to help with further evaluation and treatment Last Documented On 4 9:18AM ; [facility] Instructed to call if excess tamara bleeding or abdominal/pelvic pain Last Documented On 4 8:35AM ; [facility] Instructions For Patient: Mo nthly Self Breast Exam Last Documented On 4 8:35AM ; [facility] Recommend diet and exercise at least 30 min three times per week Last Documented On 4 8:35AM ; [facility] Education and Decision Aids were provided during visit for: Patient Education: Daily noah cium and vitamin D Last Documented On 8:35AM ; [facility] Medical Equipment - Implanted Devices Includes: Current Devices No Medical Equipment Recorded Medications Includes: Medications discussed during this encounter and other current Medications New / Renewed during this visit JIMMIE LÓPEZ RN MUSA on 02/17/2024 levoFLOXacin 500 MG Oral Tablet Provider: JIMMIE LÓPEZ RN Andrea P 7 day supply: 7 tablet, 0 refills Diagnosis: Acute vaginitis One tablet daily [facility], [address] - Last Documented On 9:09AM By [facility] ; [facility] Current Medications (continue as prescribed) Caltrate 600+D3 600-20 MG-MCG Oral Tablet 04/16/2024 Provider: Diagnosis: Last Documented On 04/16/2024 10:49AM By Estrella Rolon ; [facility] Lipitor 10 MG Oral Tablet 02/17/2024 Provider: Diagnosis: Last Documented On 02/17/2024 8:25AM By Estrella Rolon ; [facility] Pantoprazole Sodium 40 MG Oral Packet 02/17/2024 Pro vider: Diagnosis: Last Documented On 02/17/2024 8:26AM By Estrella Rolon ; [facility] oxyBUTYnin Chloride 5 MG Oral Tablet 02/17/2024 Prov ider: Diagnosis: Last Documented On 02/17/2024 8:26AM By Estrella Rolon ; [facility] Losartan Potassium 100 MG Oral Tablet 02/17/2024 Pro vider: Diagnosis: Last Documented On 02/17/2024 8:26AM By Estrella Rolon ; [facility] Vitamin D3 250 MCG (34969 UT) Oral Capsule 024 Provider: Diagnosis: Last Documented On 02/17/2024 8:26AM By Estrella Rolon ; [facility] Levothyroxine Sodium 125 MCG Tablet 03/02/2015 Provi chelsie: Diagnosis: Last Documented On 03/02/2015 10:41AM By ANGELITA SOW ; [facility] Past Medications on file Ibuprofen 800 MG Oral Tablet 04/16/2024 - 04/23/2024 Provider: JIMMIE NATION BC Diagnosis: Postmenopausal b leeding One tablet three times a day TAKE DIRECTED W/FOOD Last Documented On 4 11:33AM By JIMMIE ORTEGA ; [facility] MetroNIDAZOLE 500 MG Tablet 04/04/2015 - 04/14/2015 Provider: JIMMIE NATION BC Diagnosis: UTERINE INFLAM D IS NOS 1 BID ONE TAB TWICE A DAY W/FOOD ETOH WARNINGS Last Documented On 5 10:40AM By JIMMIE ORTEGA ; [facility] Ibuprofen 800 MG Tablet 03/31/2015 - 04/15/2015 Provid er: JIMMIE NATION BC Diagnosis: DYSMENORRHEA 1 three times daily USE DIRECTED Last Documented On 5 9:38AM By JIMMIE ORTEGA ; [facility] Tranexamic Acid 650 MG Tablet 03/02/2015 - 03/17/2015 Provider: JIMMIE NATION BC Diagnosis: Excessive Menstr uation as directed TAKE 2 TABS 3 TI MES A DAY DAY 1 OF MENSES Last Documented On 5 11:45AM By JIMMIE ORTEGA ; [facility] Medications Administered Includes: Administered Medications from this encounter No Administered Medications Recorded Vital Signs Includes: Vital Signs from this encounter Vital Name 02/17/2024 08:16A Blood Pressure Sitting L 126/78 BP Cuff Size Regular Temp-Temporal 97.6 Height (in) 62 Weight (lb) 215 Body Mass Index 39.3 Body Surface Area 2 Last Documented: On 02/17/2024 8:22AM ; [facility] Results Includes: Results discussed during this encounter No Results Recorded For Specified Dates History of Present Illness Includes: History of Present Illness from this encounter HPI - Postmenopausal bleeding 1 month ago 2 weeks duration, noted only with wiping after void. Pt. denies N/V/F or abd cramping, no further sx at present - Allergy list reviewed - Medication list reviewed - Age at menarche 11 - Date of last menstruation 8 or 9 years ago - History of menopause having occurred at age 49 or 50 - Menopausal concerns Social History Description Last Updated Social history changed grand daughter recently lost both legs after being hit by a train 02/17/2024 Last Documented On 4 11:40AM ; [facility] Education history 02/17/2024 Last Documented On 4 11:40AM ; [facility] Educational level 02/17/2024 Last Documented On 4 11:40AM ; [facility] Educational level: grade 14 02/17/2024 Last Documented On 4 11:40AM ; [facility] In monogamous relationship 02/17/2024 Last Documented On 4 11:40AM ; [facility] Marital history 02/17/2024 Last Documented On 4 11:40AM ; [facility] Not exercising regularly 02/17/2024 Last Documented On 4 11:40AM ; [facility] Not using alcohol 02/17/2024 Last Documented On 4 11:40AM ; [facility] Personal history 02/17/2024 Last Documented On 4 11:40AM ; [facility] Sexually active 02/17/2024 Last Documented On 4 11:40AM ; [facility] Sexually active with 1 partners in the l ast year 02/17/2024 Last Documented On 4 11:40AM ; [facility] Not using alcohol 02/17/2024 Last Documented On 4 11:40AM ; [facility] Sexually active with 1 partners in the l ast year 02/17/2024 Last Documented On 4 11:40AM ; [facility] Tobacco non-user 02/17/2024 Last Documented On 4 11:40AM ; [facility] Former smoker 02/17/2024 Last Documented On 4 11:40AM ; [facility] Has not used injectable drugs 02/17/2024 Last Documented On 4 11:40AM ; [facility] No consumption of alcohol 02/17/2024 Last Documented On 4 11:40AM ; [facility] Not using drugs 02/17/2024 Last Documented On 4 11:40AM ; [facility] Stopped smoking years ago 2019? 02/17/20 24 Last Documented On 4 11:40AM ; [facility] Smoking Status Unknown Procedures and Surgical History Includes: Procedures from this encounter Procedures Code Diagnosis Performing Provider Service Location Service Date OBTAINING A PAP SMEAR (DISTINCT PROCEDURAL SERVICE DIFFERENT SITE) Q0091 Encounter for screening for malignant neoplasm of cervix JIMMIE LÓPEZ RN [facility] 02/17/2024 Last Documented On 4 3:13PM ; [facility] education and instructions Last Documented On 4 8:35AM ; [facility] explanation of plan Last Documented On 4 8:35AM ; [facility] medical regimen review Last Documented On 4 8:35AM ; [facility] use of tobacco assessment performed 1000F Last Documented On 4 8:23AM ; [facility] Urged Exercise and Diet , exercise at le ast 30 min three times per week Last Documented On 4 8:35AM ; [facility] a mammogram was performed 12/2023 Last Documented On 4 8:23AM ; [facility] cervical Pap smear 50107 Last Documented On 4 8:35AM ; [facility] history of cervical Pap smear 2014 69791 Last Documented On 4 8:23AM ; [facility] screening mammogram was performed 12/28 [address]4841 Last Documented On 4 8:13AM ; [facility] Surgical History Last Updated Surgical / procedural histor y knee, tubal in 1992 ~CARPAL TUNNEL---left 06/02/2015 07/01/2015 Last Documented On 4 8:13AM ; [facility] History of tubal ligation 1992 5 Last Documented On 4 8:13AM ; [facility] Tonsillectomy 01/23/2011 Last Documented On 4 8:13AM ; [facility] Medical History Includes: Medical History addressed during this encounter Description Last Updated Last pap smear date 03/02/2015 04/16/2024 Last Documented On 4 8:13AM ; [facility] History of screening mammogram was perfo rmed 12/202302/17/2024 Last Documented On 4 11:40AM ; [facility] Primary Care Provider: DR WHEATLEY 4 Last Documented On 4 11:40AM ; [facility] Last mammogram date: 12/202302/17/2024 Last Documented On 4 11:40AM ; [facility] History of Pap smear done 2014 4 Last Documented On 4 11:40AM ; [facility] # 1 Anesthesia: Epidural 02/17/2024 Last Documented On 4 11:40AM ; [facility] # 1 Delivery date: 11/15/90 02/17/2024 Last Documented On 4 11:40AM ; [facility] # 1 Hours in labor 10 hours? 02/17/2024 Last Documented On 4 11:40AM ; [facility] # 1 type delivery: Vaginal 02/17/2024 Last Documented On 4 11:40AM ; [facility] # 1 Weight 7 14 02/17/2024 Last Documented On 4 11:40AM ; [facility] # 2 type delivery: Vaginal 02/17/2024 Last Documented On 4 11:40AM ; [facility] # 2 Anesthesia: Epidural 02/17/2024 Last Documented On 4 11:40AM ; [facility] # 2 Complications: None 02/17/2024 Last Documented On 4 11:40AM ; [facility] # 2 Delivery date: 11/27/92 02/17/2024 Last Documented On 4 11:40AM ; [facility] # 2 Hours in labor: 7 hrs? 02/17/2024 Last Documented On 4 11:40AM ; [facility] # 2 Weight: 8 7 02/17/2024 Last Documented On 4 11:40AM ; [facility] #1 Complications None 02/17/2024 Last Documented On 4 11:40AM ; [facility] An HIV test was performed 02/17/2024 Last Documented On 4 11:40AM ; [facility] Elective (s) 0 02/17/2024 Last Documented On 4 11:40AM ; [facility] No. of miscarriages: 0 02/17/2024 Last Documented On 4 11:40AM ; [facility] No. of Pregnancies: 2 02/17/2024 Last Documented On 4 11:40AM ; [facility] Please list all surgeries: Knee surgeryT ubalGall bladderCarpal Tunnel 02/17/2024 Last Documented On 4 11:40AM ; [facility] Previous live (s) 2 02/17/2024 Last Documented On 4 11:40AM ; [facility] Previous premature delivery(s) 0 024 Last Documented On 4 11:40AM ; [facility] Previous STD 02/17/2024 Last Documented On 4 11:40AM ; [facility] Recent immunization for flu Late 2022 Last Documented On 4 11:40AM ; [facility] Reported Tdap/Td Vaccine 11/2702/17/2024 Last Documented On 4 11:40AM ; [facility] Sex of Child # 1: M 02/17/2024 Last Documented On 4 11:40AM ; [facility] Sex of Child # 2: F 02/17/2024 Last Documented On 4 11:40AM ; [facility] LMP: 03/27/2015 03/31/2015 Last Documented On 4 8:13AM ; [facility] History of dysfunctional uterine bleedin g 03/02/2015 Last Documented On 4 8:13AM ; [facility] History of leiomyoma of the uterus 03/02 Last Documented On 4 8:13AM ; [facility] History of hyperlipidemia 03/02/2015 Last Documented On 4 8:13AM ; [facility] History of thyroid disorder 03/02/2015 Last Documented On 4 8:13AM ; [facility] Sexually active 03/02/2015 Last Documented On 4 8:13AM ; [facility] Vaginal delivery 02/13/2011 Last Documented On 4 8:13AM ; [facility] History of herpes simplex type II 2010 Last Documented On 4 8:13AM ; [facility] Para 2 01/23/2011 Last Documented On 4 8:13AM ; [facility] Contraception: tubal 01/23/2011 Last Documented On 4 8:13AM ; [facility] A mammogram was performed 01/23/2011 Last Documented On 4 8:13AM ; [facility] A Pap smear was performed 01/23/2011 Last Documented On 4 8:13AM ; [facility] Status post tubal ligation 01/23/2011 Last Documented On 4 8:13AM ; [facility] 2 living children 01/23/2011 Last Documented On 4 8:13AM ; [facility] weight: was 7.14 kg 01/23/2011 Last Documented On 4 8:13AM ; [facility] Delivery date 199001/23/2011 Last Documented On 4 8:13AM ; [facility] Duration of labor: was twelve hr 011 Last Documented On 4 8:13AM ; [facility] Gestational age: was 40 weeks 01/23/2011 Last Documented On 4 8:13AM ; [facility] 2 01/23/2011 Last Documented On 4 8:13AM ; [facility] History of the 1st : 01/23/2011 Last Documented On 4 8:13AM ; [facility] Herpes 01/23/2011 Last Documented On 4 8:13AM ; [facility] Family History Includes: Family History addressed during this encounter Description Last Updated Family history of Hepatitis 02/17/2024 Last Documented On 4 11:40AM ; [facility] Family history of Hepatitis HEP C 2023 Last Documented On 4 8:13AM ; [facility] Fraternal history of Herpes/HSV 02/17/20 24 Last Documented On 4 11:40AM ; [facility] Fraternal history of kidney disease 02/02 Last Documented On 4 11:40AM ; [facility] Family history of hypertension [place] 03/02/2015 Last Documented On 4 8:13AM ; [facility] Family history unchanged 03/02/2015 Last Documented On 4 8:13AM ; [facility] No family history of heart disease 03/02 Last Documented On 4 8:13AM ; [facility] No family history of hypercholesterolemi a 03/02/2015 Last Documented On 4 8:13AM ; [facility] No family history of uterine cancer 02/03 Last Documented On 4 8:13AM ; [facility] Sororal history of diabetes mellitus Last Documented On 4 8:13AM ; [facility] Maternal history of diabetes mellitus Last Documented On 4 8:13AM ; [facility] No family history of malignant female br east neoplasm 03/02/2015 Last Documented On 4 8:13AM ; [facility] No family history of malignant neoplasm of the large intestine 03/02/2015 Last Documented On 4 8:13AM ; [facility] No family history of malignant neoplasm of the ovary 03/02/2015 Last Documented On 4 8:13AM ; [facility] Family history of diabetes mellitus Moth er 01/23/2011 Last Documented On 4 8:37AM ; [facility] Family history of Diabetes 01/23/2011 Last Documented On 4 8:13AM ; [facility] Family medical history of high blood pre ssure 01/23/2011 Last Documented On 4 8:13AM ; [facility] Review of Systems Includes: Review of Systems from this encounter Systemic: Not tiring easily. No fever, no chills, no unusual bleeding, and no recent weight change. No pain. Head: No headache. Neck: No neck pain and no swollen glands in the neck. Eyes: No vision problems. Breasts: No breast symptoms, no breast lump, no pain in breast, and patient performs self breast exams. Cardiovascular: No chest pain or discomfort and no palpitations. Pulmonary: No pulmonary symptoms, no dyspnea, no cough, and no wheezing. Gastrointestinal: No heartburn. No nausea, no vomiting, no abdominal pain, no diarrhea, and no constipation. Genitourinary: No change in urinary frequency and no incomplete emptying of bladder. No urinary loss of control and no dysuria. No genital lesion, no pain during intercourse, and no vaginal dryness. Nonmenstrual bleeding. No vaginal discharge. Endocrine: No polydipsia, no hot flashes, and libido has not changed. Musculoskeletal: No back pain, no muscle aches, and no localized joint pain. Neurological: No dizziness. Psychological: No anxiety, no depression, and a desire to continue living. Skin: No pruritus. No skin lesions and no rash. Mental Status Includes: Mental Status from this encounter Description Oriented to time, place, and person No anxiety A desire to continue living Functional Status Includes: Functional Status from this encounter No Functional Status Recorded Physical Exam Includes: Physical Exam from this encounter Allergies Includes: Active Allergies Substance Type Reaction Onset Date Resolved Date Statu s traMADol HCl Allergy 02/17/2024 Active Last Documented On 4 10:48AM ; [facility] Naproxen Allergy 02/17/2024 Active Last Documented On 4 10:48AM ; [facility] Encounters Encounter Provider Location Date Check-In Time Check-Out Time Diagnosis WELL WOMAN - NEW PATIENT JIMMIE CASTRO [facility] 02/17/20 24 8:10AM 9:09AM Screen Malignant Neoplasm Cervix,Routine Gynecological Exam with Abnormal Findings,Vaginit is,Postmenopausa l Bleeding Insurance Includes: Active Insurance Policies Plan Name Member ID Group # Subscriber Relationship Effect tamara Dates 1 - [facility] [id number] BRYAN DELCID Self Clinical Notes Includes: Clinical Notes from this encounter * Progress note Date Encounter Last Documented by 02/17/2024 WELL WOMAN - NEW PATIENT Last do cumented on 04/16/2024; 11:40 AM, JIMMIE [place] ; 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 JOSUÉ CHAN ENDOCRINE S/P RADIOACTIVE IODINE [place]RAVES [place] - 054.10 - History of Herpes Simplex Type II - 272.4 - History of Hyperlipidemia - 246.9 - History of Thyroid Disorders - Z83.3 - Maternal History of Diabetes Mellitus - 626.2 - Menorrhagia - N85.2 - Nonpuerperal Uterine Hypertrophy - Z83.3 - Sororal History of Diabetes Mellitus - 305.1 - Tobacco Use - 10 a day - 218.9 - Uterine Neoplasm, Benign Leiomyoma Chief Complaint The Chief Complaint is: WWE. Pt has not had a cycle in about 8 years and had some spotting in January. Well Woman visit Reason For Visit Gynecologic annual exam and visit for: annual medical exam Pt presents for problem in addition to annual exam. History of Present Illness - Postmenopausal bleeding 1 month ago 2 weeks duration, noted only with wiping after void. Pt. denies N/V/F or abd cramping, no further sx at present - Allergy list reviewed - Medication list reviewed - Age at menarche 11 - Date of last menstruation 8 or 9 years ago - History of menopause having occurred at age 49 or 50 - Menopausal concerns Current Medication - [facility] Vitamin D3 250 MCG (03605 UT) Oral Capsule 0 days, 0 refills - Levothyroxine Sodium 125 MCG Tablet 0 days, 0 refills - Lipitor 10 MG Oral Tablet 0 days, 0 refills - Losartan Potassium 100 MG Oral Tablet 0 days, 0 refills - oxyBUTYnin Chloride 5 MG Oral Tablet 0 days, 0 refills - Pantoprazole Sodium 40 MG Oral Packet 0 days, 0 refills Past Medical/Surgical History Other: Primary Care Provider: DR WHEATLEY Reported: LMP: 03/27/2015, Last pap smear date 03/02/2015, Last mammogram date: 12/2023, Contraception: tubal, status post tubal ligation, and Please list all surgeries: Knee surgeryTubalGall bladderCarpal Tunnel. Medical: Reported Tdap/Td Vaccine 11/27. Previous STD and Herpes/HSV. Surgical / Procedural: Surgical / procedural history knee, tubal in 1992 CARPAL TUNNEL---left 06/02/2015. Tonsillectomy. Immunization History: Recent immunization for flu Late 2022. Tests: A Pap smear was performed, a mammogram was performed, and an HIV test was performed. : 2, para 2 including premature delivery(s) 0, having live (s) 2, having 2 living children, aborta including elective (s) 0, history of the 1st : delivery date 1990, gestational age: was 40 weeks, weight: was 7.14 kg, duration of labor: was twelve hr, vaginal delivery, No. of Pregnancies: 2, # 1 Delivery date: 11/15/90, # 2 Delivery date: 11/27/92, # 1 type delivery: Vaginal, # 2 type delivery: Vaginal, # 1 Anesthesia: Epidural, # 2 Anesthesia: Epidural, # 1 Hours in labor 10 hours?, # 2 Hours in labor: 7 hrs?, No. of miscarriages: 0, # 1 Weight 7 14, # 2 Weight: 8 7, # 1 Complications: # 2 Complications: None, #1 Complications None, Sex of Child # 1: M, and Sex of Child # 2: F. Sexual: Sexually active. Other: Screening mammogram was performed 12/2023 Diagnoses: Hyperlipidemia. Thyroid disorder Dysfunctional uterine bleeding. Herpes simplex type II. Leiomyoma of uterus Procedural: - Pap smear done 2014 Surgical: - Tubal ligation 1992 Social History Social history changed granddaughter recently lost both legs after being hit by a train. Personal: Personal history. Tobacco use: Former smoker stopped smoking years ago 2019?. Alcohol: No consumption of alcohol, not using alcohol, and not using alcohol. Drug Use: Not using drugs and has not used injectable drugs. Habits: Not exercising regularly. Education: Grade level 14. Marital: Marital history . Sexual: Sexually active. In monogamous relationship. Sexually active with 1 partners in the last year and with 1 partners in the last year. Allergies - Naproxen - traMADol HCl Family History No family history of heart disease Family history unchanged Family medical history of high blood pressure Diabetes Hepatitis HEP C Hepatitis Systemic hypertension SIBLINGS No diagnosis of pure hypercholesterolemia Diabetes mellitus Mother No diagnosis of malignant neoplasm of large intestine No diagnosis of malignant female breast neoplasm No diagnosis of malignant neoplasm of ovary No diagnosis of uterine cancer Maternal: Diabetes mellitus Fraternal: Kidney disease Herpes/HSV Sororal: Diabetes mellitus Review Of Systems Systemic: Not tiring easily. No fever, no chills, no unusual bleeding, and no recent weight change. No pain. Head: No headache. Neck: No neck pain and no swollen glands in the neck. Eyes: No vision problems. Breasts: No breast symptoms, no breast lump, no pain in breast, and patient performs self breast exams. Cardiovascular: No chest pain or discomfort and no palpitations. Pulmonary: No pulmonary symptoms, no dyspnea, no cough, and no wheezing. Gastrointestinal: No heartburn. No nausea, no vomiting, no abdominal pain, no diarrhea, and no constipation. Genitourinary: No change in urinary frequency and no incomplete emptying of bladder. No urinary loss of control and no dysuria. No genital lesion, no pain during intercourse, and no vaginal dryness. Nonmenstrual bleeding. No vaginal discharge. Endocrine: No polydipsia, no hot flashes, and libido has not changed. Musculoskeletal: No back pain, no muscle aches, and no localized joint pain. Neurological: No dizziness. Psychological: No anxiety, no depression, and a desire to continue living. Skin: No pruritus. No skin lesions and no rash. Physical Findings - Vitals taken 02/17/2024 08:16 am BP-Sitting L 126/78 mmHg BP Cuff Size Regular Temp-Temporal 97.6 F Height 62 in Weight 215 lbs Body Mass Index 39.3 kg/m2 Body Surface Area 2 m2 Standard Measurements: - Weight. General Appearance: - Normal. - Well developed. - Well nourished. - In no acute distress. Neck: - Normal. Appearance: - Neck was not swollen. - Neck was symmetrical. Palpation: - No tenderness of the neck. Thyroid: - Showed no abnormalities. - Did not have a nodule. - Not tender. Eyes: General/bilateral: Pupils: - PERRL. Nose: Right Side Of Nose: - Normal. Left Side Of Nose: - Normal. Oral Cavity: - General condition was good. Gums: - Examination showed no abnormalities. Teeth: - Dental no abnormalities. Lymph Nodes: - No adenopathy. - Cervical lymph nodes: normal. - Supraclavicular lymph Nodes: normal. Breasts: General/bilateral: - Palpation of the breast revealed dense, thickened tissue. - Nipples showed no abnormalities. - No abnormal breast secretion was observed. - No dimpling was seen in the breast. - No breast asymmetry was observed. - No breast mass was found. - No tenderness of breast. Right Breast: - Normal. - Was normal to palpation. Left Breast: - Normal. - Was normal to palpation. Lungs: - Respiration rhythm and depth was normal. - Clear to auscultation. - No wheezing was heard. - No rhonchi were heard. Cardiovascular: - System: normal. Heart Rate And Rhythm: - Normal. - Heart rhythm regular. Heart Sounds: - Normal. - S1 normal. - S2 normal. - No gallop was heard. Murmurs: - No murmurs were heard. Edema: - Not present. Abdomen: - No organomegaly. Visual Inspection: - Abdomen was normal on visual inspection. Palpation: - Abdominal non-tender. Liver: - Not enlarged. Spleen: - Not enlarged. Urinary System: Bladder: - Normal. - Not tender. Urethra: - Normal. - Meatus showed no abnormalities. - No mass on the urethra. Genitalia: External: - Genitalia showed no abnormalities. Pelvic: - No ovarian mass. Vagina: - A vaginal discharge was observed smlall amount thick yellow in vault. - Mucosa was normal. - No cystocele was observed. - No rectocele was observed. Cervix: - Normal. - No cervical discharge. - Showed no lesion. - Did not demonstrate pain elicited by motion. - No inflammation. - No stenosis. Uterus: - Positioned midline. - Mobile. - Uterine size is normal. - Not tender. Uterine Adnexa: - Normal. - Not tender. - No tubal mass was noted. Rectovaginal: - Tissue was normal. Perineum: - No lesions. - No rashes. Rectal: Anus Examination: - External hemorrhoids were observed. Musculoskeletal System: Fingers: General/bilateral: - No cyanosis of the fingers. - No acropachy of the fingers was observed. Neurological: - Oriented to time, place, and person. Psychiatric: - Mood was not anxious. Appearance: - Grooming was normal. Affect: - Not agitated. Skin: - General appearance was normal. - Texture was normal. - Turgor was normal. - No cyanosis. - Moisture was normal. - No skin lesions. - No perineal lesions. - No rash. Tests Imaging: X-Ray Toes: Screening mammogram was performed 12/28. Pathology: Excision For Pathology: Cervical Pap smear. Assessment - [Z01.411 - Encounter for gynecological examination (general) (routine) with abnormal findings] Routine gynecological exam with abnormal findings - [N76.0 - Acute vaginitis] Vaginitis - [N95.0 - Postmenopausal bleeding] Postmenopausal bleeding - [Z12.4 - Encounter for screening for malignant neoplasm of cervix] Screen malignant neoplasm cervix Previous Tests Past Medical: Tests: A mammogram was performed 12/2023. Pathology: Excision For Pathology: Cervical Pap smear 2014. Therapy - Urged Exercise and Diet, exercise at least 30 min three times per week. - Education and instructions. - Medical regimen review. - Explanation of plan. Counseling/Education - Instructions for patient ER if bleeding through reg. sized pad/tampon < 1 hour, ER pelvic pain precautions given - Instructions for patient: patient is to keep a menstrual diary to help with further evaluation and treatment - Instructions For Patient: Monthly Self Breast Exam - Instructed to call if excessive bleeding or abdominal/pelvic pain - Recommend diet and exercise at least 30 min three times per week - Patient Education: Daily calcium and vitamin D Plan StartCited - Acute vaginitis levoFLOXacin 500 MG tablet One tablet daily, 7 days, 0 refills EndCited StartCited - Asymptomatic menopausal state Radiology @ other: DEXA (to be scheduled) EndCited StartCited - Encntr for sanitarian exam (general) (routine) w abnormal findings Lab: Pap with HPV EndCited StartCited - Encntr screen mammogram for malignant neoplasm of breast Radiology @ other/*MAMMOGRAPHY: SCREENING MAMMOGRAM Instructions: Additional images/ultrasounds if indicated Please send to PCP EndCited StartCited - Other PHY ORDER/COMMENT release for 2023 mammogram PHY ORDER/COMMENT 1 yr annual, and EMB after U/S in procedure room 30 min thanks EndCited StartCited - Postmenopausal bleeding Radiology @ other/Ultrasound: Pelvic U/S w/TVT (TransVag) EndCited - Weight loss diet - Clinical summary provided to patient PT TO CALL WITH ANY CHANGE IN STATUS ALL QUESTIONS ANSWERED WITH UNDERSTANDING VERBALIZED BY PT. Practice Management Use of tobacco assessment performed. Health Reminders - Assess BMI satisfied 02/17/2024. - Assess Need for CT Lung Screen satisfied 02/17/2024. - Assess Tobacco Use satisfied 02/17/2024. - Flu Shot satisfied 02/17/2024. - Mammogram satisfied 02/17/2024.
--- OUTSIDE RECORDS SUMMARY | 2025-02-15 13:03 | XMS_ITS | Clinical Summary ---
Author Organization [facility] Address [address] [place] [address] Phone Care Team Providers Care Hoisting Engineer Name Role Phone Niles Reaves APRN, DARIO Primary Care Provider Niles Reaves APRN, DARIO Unavailable [phone] Social History Tobacco Use Types Packs/Day Years Used Date Smoking Tobacco: Never Assessed Comments Unknown Sex and Gender Information Value Date Recorded Sex Assigned at Not on file Legal Sex Female 1:01 PM CDT Gender Identity Not on file Sexual Orientation Not on file Plan of Treatment Health Maintenance Due Date Last Done Comments Hepatitis C Virus (HCV) Screening 1965 TdaP Immunization 1965 Pap Smear 1985 Cervical Cancer Screening (CCS) 1994 HPV/Cotest 1994 Colonoscopy 2009 Colorectal Cancer Screening 2009 Cologuard 2014 Immunochemical Fecal Occult Blood 2014 Mammogram 2014 Pneumococcal Immunization (5 0+ years) (1 of 1 - PCV) 2014 Zoster Immunization (1 of 2) 2014 Influenza Immunization (#1) 2024 SARS-COV-2 Immunization ( - 2023-25 season) 2024 Respiratory Syncytial Virus (RSV) Immunization (Adult) (1 - 1-dose 75+ series) 2039 Hepatitis B Immunization Aged Out No longer eligible based on patient's age to complete this topic Meningococcal Immunization (ACWY) Aged Out No longer eligible based on patient's age to complete this topic Rotavirus Immunization Aged Out No lo nger eligible based on patient's age to complete this topic Insurance Care Teams Hoisting Engineer Relationship Specialty Start Date End Date Niles Reaves APRN, DIGITAL SERVICE ENGINEER [address] [place] [address] PCP - General Certified Nurse Practitioner 02/15/16 Niles Reaves APRN, DIGITAL SERVICE ENGINEER [address] [place] [address] Certified Nurse Practitioner 02/15/16
--- OUTSIDE RECORDS SUMMARY | 2025-02-15 13:03 | XMS_ITS ---
Care Plan - [facility] Created on: February 15, 2025 BRYAN DELCID : [id number] Sex: Female Author Organization [facility] Address [address] [place] [id number] Phone Care Team Providers Care City Administrator Name Role Phone NOBLE ALDRICH, VIVIANA Dawn Primary Care Provider
--- OUTSIDE RECORDS SUMMARY | 2025-02-15 13:03 | XMS_ITS | Clinical Summary ---
Author Organization [facility] Address [address] [place] [address] Phone Care Team Providers Care Documentation Supervisor Name Role Phone VIVIANA DICKEY MD Primary Care Provider Reason for Visit and Chief Complaint [Patient Encounter] Problems Includes: Problems addressed during this encounter and other active Problems All Visits Onset Date Resolved Date Provider Condition S tatus BENIGN NEOPLASM LG BOWEL 03/29/2015 JIMMIE LÓPEZ RN N P BC Active Last Documented On 5 10:58AM ; [facility] Endometrial Hyperplasia 03/29/2015 LUIS ALFREDO LÓPEZ RN NP BC Active Last Documented On 5 11:10AM ; [facility] Note: Unchanged Nonpuerperal Uterine Hypertrophy 03/29/2015 JIMMIE LÓPEZ RN MUSA BC Active Last Documented On 5 11:10AM ; [facility] Note: Unchanged Dysmenorrhea Secondary 03/02/2015 JIMMIE LÓPEZ RN MUSA BC Active Last Documented On 5 11:04AM ; [facility] Note: Unchanged History of Hyperlipidemia 03/02/2015 TAMMIE LÓPEZ RN NP BC Active Last Documented On 5 11:52AM ; [facility] Note: Unchanged History of Thyroid Disorders 03/02/2015 JIMMIE LÓPEZ RN MUSA BC Active Last Documented On 5 11:52AM ; [facility] Note: Unchanged Menorrhagia 03/02/2015 JIMMIE Mendez [facility] BC Active Last Documented On 5 11:04AM ; [facility] Note: Unchanged Tobacco Use 03/02/2015 JIMMIE Mendez [facility]USA BC Active Last Documented On 5 11:52AM ; [facility] Note: Unchanged - 10 a day Fam Hx-Cardiovas Dis NEC 03/01/2015 JOB LÓPEZ RN [facility] Active Last Documented On 5 8:25AM ; [facility] Note: Unchanged FAM HX-DIABETES MELLITUS 03/01/2015 JOB LÓPEZ RN [facility] Active Last Documented On 5 8:25AM ; [facility] Note: Unchanged Uterine Neoplasm, Benign Leiomyoma 03/01/2015 JIMMIE LÓPEZ RN [facility] Active Last Documented On 5 8:24AM ; [facility] 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 JOSUÉ CHAN ENDOC RINE S/P RADIOACTIVE IODINE [place]RAV[place] History of Herpes Simplex Type II 01/23/2011 REBECCA TERAN Active Last Documented On 01/23/2011 8:37AM ; [facility] Note: Unchanged Plan of Treatment No Plan of Treatment Recorded Assessments Includes: Assessments from this encounter No Assessments Recorded Medical Equipment - Implanted Devices Includes: Current Devices No Medical Equipment Recorded Medications Includes: Medications discussed during this encounter and other current Medications Current Medications (continue as prescribed) Caltrate 600+D3 600-20 MG-MCG Oral Tablet 04/16/2024 Provider: Diagnosis: Last Documented On 04/16/2024 10:49AM By Estrella Rolon ; [facility] Lipitor 10 MG Oral Tablet 02/17/2024 Provider: Diagnosis: Last Documented On 02/17/2024 8:25AM By Estrella Rolon ; [facility] Pantoprazole Sodium 40 MG Oral Packet 02/17/2024 Pro vider: Diagnosis: Last Documented On 02/17/2024 8:26AM By Estrella Rolon ; [facility] oxyBUTYnin Chloride 5 MG Oral Tablet 02/17/2024 Prov ider: Diagnosis: Last Documented On 02/17/2024 8:26AM By Estrella Rolon ; [facility] Losartan Potassium 100 MG Oral Tablet 02/17/2024 Pro vider: Diagnosis: Last Documented On 02/17/2024 8:26AM By Estrella Rolon ; [facility] Vitamin D3 250 MCG (16228 UT) Oral Capsule 024 Provider: Diagnosis: Last Documented On 02/17/2024 8:26AM By Estrella Rolon ; [facility] Levothyroxine Sodium 125 MCG Tablet 03/02/2015 Provi chelsie: Diagnosis: Last Documented On 03/02/2015 10:41AM By ANGELITA SOW ; [facility] Medications Administered Includes: Administered Medications from this encounter No Administered Medications Recorded Results Includes: Results discussed during this encounter No Results Recorded For Specified Dates History of Present Illness Includes: History of Present Illness from this encounter No History of Present Illness Recorded Social History No Social History Recorded - Smoking Status Unknown Medical History Includes: Medical History addressed during this encounter No Medical History Recorded Family History Includes: Family History addressed during this encounter No Family History Recorded Review of Systems Includes: Review of Systems from this encounter No Review of Systems Recorded Mental Status Includes: Mental Status from this encounter No Mental Status Recorded Functional Status Includes: Functional Status from this encounter No Functional Status Recorded Physical Exam Includes: Physical Exam from this encounter No Physical Exam Recorded Allergies Includes: Active Allergies Substance Type Reaction Onset Date Resolved Date Statu s traMADol HCl Allergy 02/17/2024 Active Last Documented On 4 10:48AM ; [facility] Naproxen Allergy 02/17/2024 Active Last Documented On 4 10:48AM ; [facility] Encounters Encounter Provider Location Date Check-In Time Check- Out Time Diagnosis [Patient Encounter] VIVIANA DICKEY MD [facility] PROGRESSIVE ASSEMBLER AND FITTER 5 3:53PM 11:59PM Insurance Includes: Active Insurance Policies Plan Name Member ID Group # Subscriber Relationship Effect tamara Dates 1 - [facility] [id number] BRYAN DELCID Self Clinical Notes Includes: Clinical Notes from this encounter No Clinical Notes Recorded
--- OUTSIDE RECORDS SUMMARY | 2025-02-15 13:03 | XMS_ITS | Clinical Summary ---
Author Organization 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 Note: Unchanged History of Thyroid Disorders 03/02/2015 JIMMIE LÓPEZ RN MUSA BC Active Last Documented On 03/02/2015 11:52AM ; [facility] Note: Unchanged History of Herpes Simplex Type II 01/23/2011 REBECCA TERAN Active Last Documented On 01/23/2011 8:37AM ; [facility] Note: Unchanged Past Visits Onset Date Resolved Date Provider Condition Status BENIGN NEOPLASM LG BOWEL 03/29/2015 JIMMIE LÓPEZ RN Andrea P Active Last Documented On 5 10:58AM ; [facility] Endometrial Hyperplasia 03/29/2015 LUIS ALFREDO LÓPEZ RN MUSA BC Active Last Documented On 5 11:10AM ; [facility] Note: Unchanged Nonpuerperal Uterine Hypertrophy 03/29/2015 JIMMIE LÓPEZ RN Andrea P BC Active Last Documented On 5 11:10AM ; [facility] Note: Unchanged Dysmenorrhea Secondary 03/02/2015 JIMMIE LÓPEZ RN MUSA BC Active Last Documented On 5 11:04AM ; [facility] Note: Unchanged Menorrhagia 03/02/2015 JIMMIE Mendez MUSA BC Active Last Documented On 5 11:04AM ; [facility] Note: Unchanged Tobacco Use 03/02/2015 JIMMIE Gallardo MARIBEL Salmon N NP Active Last Documented On 5 11:52AM ; [facility] Note: Unchanged - 10 a day Fam Hx-Cardiovas Dis NEC 03/01/2015 JOB Gallardo MARIBEL RN NP BC Active Last Documented On 5 8:25AM ; [facility] Note: Unchanged FAM HX-DIABETES MELLITUS 03/01/2015 JOB Gallardo MARIBEL RN NP BC Active Last Documented On 5 8:25AM ; [facility] Note: Unchanged Uterine Neoplasm, Benign Leiomyoma 03/01/2015 JIMMIE LÓPEZ RN N P BC Active Last Documented On 5 8:24AM ; [facility] 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 JOSUÉ CHAN ENDOC RINE S/P RADIOACTIVE IODINE GRAVES [place] Plan of Treatment Pending Tests Order Diagnosis Results Due Ordering Provider In office procedures - *Family Practice Endometrial Biopsy Postmenopausal bleeding 04/30/24 JIMMIE LÓPEZ RN [facility] Last Documented On 4 11:27AM ; [facility] Radiology @ other - *MAMMOGRAPHY SCREENING MAMMOGRAM Encntr screen mammogram for malignant neoplasm of breast 01/02/25 JIMMIE LÓPEZ RN [facility] Last Documented On 4 3:40PM ; [facility] Instructions to patient Instructed to call if excess tamara bleeding or abdominal/pelvic pain Last Documented On 4 11:24AM ; [facility] Patient may take Motrin OTC PRN as directed Last Documented On 4 11:24AM ; [facility] Education and Decision Aids were provided during visit for: INFORMED CONSENT DISCUSSION: Endometrial biopsy was discussed in detail including discomfort, insufficient specimen with need to repeat test, and rare incidence of uterine perforation. Patient expressed understanding of the above and consented to the procedure Last Documented On 4 11:24AM ; [facility] Assessments Includes: Assessments from this encounter Findings - [N95.0 - Postmenopausal bleeding] Postmenopausal bleeding - Last Documented On 04/16/2024 11:30AM ; [facility] Instructions Includes: Instructions from this encounter Instructions to patient Instructed to call if excess tamara bleeding or abdominal/pelvic pain Last Documented On 4 11:24AM ; [facility] Patient may take Motrin OTC PRN as directed Last Documented On 11:24AM ; [facility] Education and Decision Aids were provided during visit for: INFORMED CONSENT DISCUSSION: Endometrial biopsy was discussed in detail including discomfort, insufficient specimen with need to repeat test, and rare incidence of uterine perforation. Patient expressed understanding of the above and consented to the procedure Last Documented On 11:24AM ; [facility] Medical Equipment - Implanted Devices Includes: Current Devices No Medical Equipment Recorded Medications Includes: Medications discussed during this encounter and other current Medications New / Renewed during this visit JIMMIE LÓPEZ RN MUSA on 04/16/2024 Ibuprofen 800 MG Oral Tablet Provider: JIMMIE LÓPEZ RN MUSA 7 day supply: 21 tablet, 0 refills Diagnosis: Postmenopausal bleeding One tablet three times a day TAKE DIRECTED W/FOOD Pharmacy: [facility] [address], [address] - Last Documented On 11:33AM By JIMMIE NATION-GLORIA ; [facility] Current Medications (continue as prescribed) Caltrate 600+D3 600-20 MG-MCG Oral Tablet 04/16/2024 Provider: Diagnosis: Last Documented On 04/16/2024 10:49AM By Estrella Rolon ; [facility] Lipitor 10 MG Oral Tablet 02/17/2024 Provider: Diagnosis: Last Documented On 02/17/2024 8:25AM By Estrella Rolon ; [facility] Pantoprazole Sodium 40 MG Oral Packet 02/17/2024 Pro vider: Diagnosis: Last Documented On 02/17/2024 8:26AM By Estrella Rolon ; [facility] oxyBUTYnin Chloride 5 MG Oral Tablet 02/17/2024 Prov ider: Diagnosis: Last Documented On 02/17/2024 8:26AM By Estrella Rolon ; [facility] Losartan Potassium 100 MG Oral Tablet 02/17/2024 Pro vider: Diagnosis: Last Documented On 02/17/2024 8:26AM By Estrella Rolon ; [facility] Vitamin D3 250 MCG (43831 UT) Oral Capsule 024 Provider: Diagnosis: Last Documented On 02/17/2024 8:26AM By Estrella Rolon ; [facility] Levothyroxine Sodium 125 MCG Tablet 03/02/2015 Provi chelsie: Diagnosis: Last Documented On 03/02/2015 10:41AM By ANGELITA SOW ; [facility] Past Medications on file levoFLOXacin 500 MG Oral Tablet 02/17/2024 - 02/24/2024 Provider: JIMMIE NATION Diagnosis: Acute vaginitis One tablet daily Last Documented On 4 9:09AM By JIMMIE ORTEGA ; [facility] MetroNIDAZOLE 500 MG Tablet 04/04/2015 - 04/14/2015 Provider: JIMMIE CASTRO Diagnosis: UTERINE INFLAM D IS NOS 1 BID ONE TAB TWICE A DAY W/FOOD ETOH WARNINGS Last Documented On 5 10:40AM By JIMMIE ORTEGA ; [facility] Ibuprofen 800 MG Tablet 03/31/2015 - 04/15/2015 Provid er: JIMMIE NATION BC Diagnosis: DYSMENORRHEA 1 three times daily USE DIRECTED Last Documented On 5 9:38AM By JIMMIE ORTEGA ; [facility] Tranexamic Acid 650 MG Tablet 03/02/2015 - 03/17/2015 Provider: JIMMIE NATION BC Diagnosis: Excessive Menstr uation as directed TAKE 2 TABS 3 TI MES A DAY DAY 1 OF MENSES Last Documented On 5 11:45AM By JIMMIE ORTEGA ; [facility] Medications Administered Includes: Administered Medications from this encounter No Administered Medications Recorded Vital Signs Includes: Vital Signs from this encounter Vital Name 04/16/2024 10:41A Blood Pressure Sitting L 112/70 BP Cuff Size Large Temp-Temporal 97.7 Height (in) 62 Weight (lb) 218 Body Mass Index 39.9 Body Surface Area 2 Last Documented: On 04/16/2024 10:50A M ; [facility] Results Includes: Results discussed during this encounter No Results Recorded For Specified Dates History of Present Illness Includes: History of Present Illness from this encounter HPI - Allergy list reviewed - Medication list reviewed Social History No Social History Recorded - Smoking Status Unknown Procedures and Surgical History Includes: Procedures from this encounter Procedures Code Diagnosis Performing Provider Service Location Service Date ENDOMERIAL BIOPSY 76553 Postmenopausal bleeding JIMMIE LÓPEZ RN [facility] 04/16/2024 Last Documented On 4 11:31AM ; [facility] education and instructions Last Documented On 4 11:24AM ; [facility] Clinical summary provided to patient Last Documented On 4 11:24AM ; [facility] biopsy was performed CONSENT SIGNED AND QUESTIONS ANSWERED PRIOR TO PROCEDURE Last Documented On 4 11:24AM ; [facility] endometrial biopsy ~Procedur e Note: Sterile speculum was placed in vaginal vault. The cervix was cleansed with Betadine. The anterior lip of the cervix was grasped with a single tooth tenaculum. The uterus was sounded to 9 cm. after dialators used. The endometrial biopsy pipelle was utilized to obtain specimen. The specimen was sent to pathology. The tenaculum was removed from the cervix. There was noted to be excellent hemostasis. The speculum was removed from the vaginal vault. The patient tolerated the procedure well Last Documented On 4 11:28AM ; [facility] pathology [id number] Last Documented On 4 11:24AM ; [facility] Surgical History Last Updated Surgical / procedural histor y knee, tubal in 1992 ~CARPAL TUNNEL---left 06/02/2015 07/01/2015 Last Documented On 4 10:41AM ; [facility] Surgical history unchanged 03/02/2015 Last Documented On 4 10:41AM ; [facility] History of tubal ligation 1992 5 Last Documented On 4 10:41AM ; [facility] Tonsillectomy 01/23/2011 Last Documented On 4 10:41AM ; [facility] Medical History Includes: Medical History addressed during this encounter Description Last Updated Last pap smear date 02/17/2024 04/16/2024 Last Documented On 4 11:30AM ; [facility] History of screening mammogram was perfo rmed 12/202302/17/2024 Last Documented On 4 10:41AM ; [facility] Primary Care Provider: DR WHEATLEY 4 Last Documented On 4 10:41AM ; [facility] Last mammogram date: 12/202302/17/2024 Last Documented On 4 10:41AM ; [facility] History of Pap smear done 2014 4 Last Documented On 4 10:41AM ; [facility] # 1 Anesthesia: Epidural 02/17/2024 Last Documented On 4 10:41AM ; [facility] # 1 Delivery date: 11/15/90 02/17/2024 Last Documented On 4 10:41AM ; [facility] # 1 Hours in labor 10 hours? 02/17/2024 Last Documented On 4 10:41AM ; [facility] # 1 type delivery: Vaginal 02/17/2024 Last Documented On 4 10:41AM ; [facility] # 1 Weight 7 14 02/17/2024 Last Documented On 4 10:41AM ; [facility] # 2 type delivery: Vaginal 02/17/2024 Last Documented On 4 10:41AM ; [facility] # 2 Anesthesia: Epidural 02/17/2024 Last Documented On 4 10:41AM ; [facility] # 2 Complications: None 02/17/2024 Last Documented On 4 10:41AM ; [facility] # 2 Delivery date: 11/27/92 02/17/2024 Last Documented On 4 10:41AM ; [facility] # 2 Hours in labor: 7 hrs? 02/17/2024 Last Documented On 4 10:41AM ; [facility] # 2 Weight: 8 7 02/17/2024 Last Documented On 4 10:41AM ; [facility] #1 Complications None 02/17/2024 Last Documented On 4 10:41AM ; [facility] An HIV test was performed 02/17/2024 Last Documented On 4 10:41AM ; [facility] Elective (s) 0 02/17/2024 Last Documented On 4 10:41AM ; [facility] No. of miscarriages: 0 02/17/2024 Last Documented On 4 10:41AM ; [facility] No. of Pregnancies: 2 02/17/2024 Last Documented On 4 10:41AM ; [facility] Please list all surgeries: Knee surgeryT ubalGall bladderCarpal Tunnel 02/17/2024 Last Documented On 4 10:41AM ; [facility] Previous live (s) 2 02/17/2024 Last Documented On 4 10:41AM ; [facility] Previous premature delivery(s) 0 024 Last Documented On 4 10:41AM ; [facility] Previous STD 02/17/2024 Last Documented On 4 10:41AM ; [facility] Recent immunization for flu Late 2022 Last Documented On 4 10:41AM ; [facility] Reported Tdap/Td Vaccine 11/2702/17/2024 Last Documented On 4 10:41AM ; [facility] Sex of Child # 1: M 02/17/2024 Last Documented On 4 10:41AM ; [facility] Sex of Child # 2: F 02/17/2024 Last Documented On 4 10:41AM ; [facility] LMP: 03/27/2015 03/31/2015 Last Documented On 4 10:41AM ; [facility] History of dysfunctional uterine bleedin g 03/02/2015 Last Documented On 4 10:41AM ; [facility] History of leiomyoma of the uterus 03/02 Last Documented On 4 10:41AM ; [facility] Exposed to sexually transmitted infectio n 03/02/2015 Last Documented On 4 10:41AM ; [facility] In monogamous relationship 03/02/2015 Last Documented On 4 10:41AM ; [facility] History of hyperlipidemia 03/02/2015 Last Documented On 4 10:41AM ; [facility] History of thyroid disorder 03/02/2015 Last Documented On 4 10:41AM ; [facility] Sexually active 03/02/2015 Last Documented On 4 10:41AM ; [facility] Vaginal delivery 02/13/2011 Last Documented On 4 10:41AM ; [facility] No recent change in medical history 02/02 Last Documented On 4 10:41AM ; [facility] History of herpes simplex type II 2010 Last Documented On 4 10:41AM ; [facility] Result: normal 01/23/2011 Last Documented On 4 10:41AM ; [facility] Result: normal 01/23/2011 Last Documented On 4 10:41AM ; [facility] Para 2 01/23/2011 Last Documented On 4 10:41AM ; [facility] Contraception: tubal 01/23/2011 Last Documented On 4 10:41AM ; [facility] Previously diagnosed with a STD 01/24/20 11 Last Documented On 4 10:41AM ; [facility] A breast self-exam was performed 011 Last Documented On 4 10:41AM ; [facility] A mammogram was performed 01/23/2011 Last Documented On 4 10:41AM ; [facility] A Pap smear was performed 01/23/2011 Last Documented On 4 10:41AM ; [facility] Status post tubal ligation 01/23/2011 Last Documented On 4 10:41AM ; [facility] 2 living children 01/23/2011 Last Documented On 4 10:41AM ; [facility] Duration of labor: was twelve hr 011 Last Documented On 4 10:41AM ; [facility] 2 01/23/2011 Last Documented On 4 10:41AM ; [facility] History of the 1st : 01/23/2011 Last Documented On 4 10:41AM ; [facility] Herpes 01/23/2011 Last Documented On 4 10:41AM ; [facility] Family History Includes: Family History addressed during this encounter Description Last Updated Family history of Hepatitis 02/17/2024 Last Documented On 4 10:41AM ; [facility] Fraternal history of Herpes/HSV 02/17/20 24 Last Documented On 4 10:41AM ; [facility] Fraternal history of kidney disease 02/02 Last Documented On 4 10:41AM ; [facility] Family history of hypertension SIBLINGS 03/02/2015 Last Documented On 4 10:41AM ; [facility] Family history unchanged 03/02/2015 Last Documented On 4 10:41AM ; [facility] No family history of heart disease 03/02 Last Documented On 4 10:41AM ; [facility] No family history of hypercholesterolemi a 03/02/2015 Last Documented On 4 10:41AM ; [facility] No family history of uterine cancer 02/03 Last Documented On 4 10:41AM ; [facility] Sororal history of diabetes mellitus Last Documented On 4 10:41AM ; [facility] Maternal history of diabetes mellitus Last Documented On 4 10:41AM ; [facility] No family history of malignant female br east neoplasm 03/02/2015 Last Documented On 4 10:41AM ; [facility] No family history of malignant neoplasm of the large intestine 03/02/2015 Last Documented On 4 10:41AM ; [facility] No family history of malignant neoplasm of the ovary 03/02/2015 Last Documented On 4 10:41AM ; [facility] Family history of diabetes mellitus Moth er 01/23/2011 Last Documented On 4 11:24AM ; [facility] Family history of Diabetes 01/23/2011 Last Documented On 4 10:41AM ; [facility] Family medical history of high blood pre ssure 01/23/2011 Last Documented On 4 10:41AM ; [facility] Review of Systems Includes: Review of Systems from this encounter Systemic: Not feeling poorly (malaise). No fever, no chills, no post coital bleeding, and no recent weight change. No night sweats. Head: No headache. Cardiovascular: No chest pain or discomfort. Pulmonary: No dyspnea. Gastrointestinal: No nausea, no vomiting, and no abdominal pain. Genitourinary: No vaginal dryness. Nonmenstrual bleeding. Hematologic: No blood clotting problems. Psychological: No anxiety, no depression, and no sleep disturbances. Mental Status Includes: Mental Status from this encounter Description Oriented to time, place, and person No anxiety Functional Status Includes: Functional Status from this encounter No Functional Status Recorded Physical Exam Includes: Physical Exam from this encounter Allergies Includes: Active Allergies Substance Type Reaction Onset Date Resolved Date Statu s traMADol HCl Allergy 02/17/2024 Active Last Documented On 4 10:48AM ; [facility] Naproxen Allergy 02/17/2024 Active Last Documented On 4 10:48AM ; [facility] Encounters Encounter Provider Location Date Check-In Time Check-Out Time Diagnosis PROCEDURE OFFICE JIMMIE NATION [facility] 04/16/20 24 10:40AM 11:35AM Postmenopausal Bleeding Insurance Includes: Active Insurance Policies Plan Name Member ID Group # Subscriber Relationship Effect tamara Dates 1 - [facility] [id number] BRYAN DELCID Self Clinical Notes Includes: Clinical Notes from this encounter * Progress note Date Encounter Last Documented by 04/16/2024 PROCEDURE OFFICE Last documented on 04/16/2024; 11:30 AM, JIMMIE NATION ; [facility] Active Problems & Conditions - 211.3 - [...] Leiomyoma Chief Complaint The Chief Complaint is: EMB. History of Present Illness - Allergy list reviewed - Medication list reviewed Current Medication - Caltrate 600+D3 600-20 MG-MCG Oral Tablet 0 days, 0 refills - [facility] Vitamin D3 250 MCG (62198 UT) Oral Capsule 0 days, 0 refills [...] Other: Primary Care Provider: DR WHEATLEY Reported: No recent change in medical history, LMP: 03/27/2015, Last pap smear date 02/17/2024 result: normal, Last mammogram date: 12/2023 result: normal, Contraception: tubal, status post tubal ligation, and Please list all surgeries: Knee surgeryTubalGall bladderCarpal Tunnel. Medical: A breast self-exam was performed and Vaccine history Reported Tdap/Td Vaccine 11/27. Previous STD, previously diagnosed with a STD, and Herpes/HSV. Surgical / Procedural: Surgical / procedural history knee, tubal in 1992 CARPAL TUNNEL---left 06/02/2015. Tonsillectomy and surgical history unchanged. Immunization History: Recent immunization for flu Late 2022. Tests: A Pap smear was performed, a mammogram was performed, and an HIV test was performed. Exposure: Exposed to sexually transmitted infection. : 2, para 2 including premature delivery(s) 0, having live (s) 2, having 2 living children, aborta including elective (s) 0, history of the 1st : duration of labor: was twelve hr, vaginal [...] Child # 2: F. Sexual: Sexually active. In monogamous relationship. Other: Screening mammogram was performed 12/2023 Diagnoses: Hyperlipidemia. Thyroid disorder Dysfunctional uterine bleeding. Herpes simplex type II. Leiomyoma of uterus Procedural: - Pap smear done 2014 Surgical: - Tubal ligation 1992 Allergies - Naproxen - traMADol HCl Family History No family history of heart disease Family history unchanged Family medical history of high blood pressure Diabetes Hepatitis Systemic hypertension [place]LINGS No diagnosis of pure hypercholesterolemia Diabetes mellitus Mother No diagnosis of malignant neoplasm of large intestine No diagnosis of malignant female breast neoplasm No diagnosis of malignant neoplasm of ovary No diagnosis of uterine cancer Maternal: Diabetes mellitus Fraternal: Kidney disease Herpes/HSV Sororal: Diabetes mellitus Review Of Systems Systemic: Not feeling poorly (malaise). No fever, no chills, no post coital bleeding, and no recent weight change. No night sweats. Head: No headache. Cardiovascular: No chest pain or discomfort. Pulmonary: No dyspnea. Gastrointestinal: No nausea, no vomiting, and no abdominal pain. Genitourinary: No vaginal dryness. Nonmenstrual bleeding. Hematologic: No blood clotting problems. Psychological: No anxiety, no depression, and no sleep disturbances. Physical Findings - Vitals taken 04/16/2024 10:41 am BP-Sitting L 112/70 mmHg BP Cuff Size Large Temp-Temporal 97.7 F Height 62 in Weight 218 lbs Body Mass Index 39.9 kg/m2 Body Surface Area 2 m2 General Appearance: - Well-appearing. - Well developed. - Well nourished. - No jaundice. - In no acute distress. Genitalia: External: - Genitalia showed no abnormalities. - No vulvar rash. Pelvic: - No ovarian mass. Vagina: - Mucosa was atrophied. - No erosion of vaginal mucosa. - No vaginal discharge was observed. - No cystocele was observed. - No rectocele was observed. - Had no laceration. - No vaginal lesions. Cervix: - No cervical discharge. - Showed no lesion. - Not tender. - Did not demonstrate pain elicited by motion. Uterus: - Mobile. - Uterine size is normal. - Not tender. Uterine Adnexa: - Not tender. - No tubal mass was noted. Perineum: - No lesions. - No rashes. - No hirsutism. Neurological: - System: normal. - Oriented to time, place, and person. Psychiatric: - Mood was not anxious. - Mood was not depressed. Affect: - Normal. - Not agitated. Skin: - Normal. - No vulvar lesions. Tests Pathology: Oral Pathology: Biopsy CONSENT SIGNED AND QUESTIONS ANSWERED PRIOR TO PROCEDURE. Endometrial biopsy Procedure Note: Sterile speculum was placed in vaginal vault. The cervix was cleansed with Betadine. The anterior lip of the cervix was grasped with a single tooth tenaculum. The uterus was sounded to 9 cm. after dialators used. The endometrial biopsy pipelle was utilized to obtain specimen. The specimen was sent to pathology. The tenaculum was removed from the cervix. There was noted to be excellent hemostasis. The speculum was removed from the vaginal vault. The patient tolerated the procedure well. 03/23/24 TV TA U/S = uterus 9.9 x 5.8 x 4.4 cm endometrial stripe = 13 mm R ovary = 1.9 x 1.8 x 1.6 cm L ovary = 2.9 x 2.8 x 2.1 cm L complex cystic lesion w/thick septation and internal echoes = 2.7 x 2.3 x 1.8 cm 03/24/24 CA 125 = 7 Assessment - [N95.0 - Postmenopausal bleeding] Postmenopausal bleeding Therapy - Education and instructions. - Clinical summary provided to patient. Counseling/Education - Instructed to call if excessive bleeding or abdominal/pelvic pain - Patient may take Motrin OTC PRN as directed INFORMED CONSENT DISCUSSION: Endometrial biopsy was discussed in detail including discomfort, insufficient specimen with need to repeat test, and rare incidence of uterine perforation. Patient expressed understanding of the above and consented to the procedure. Plan StartCited - Other PHY ORDER/COMMENT Pt to be informed of results for plan of care thanks EndCited StartCited - Postmenopausal bleeding Lab: PATHOLOGY SPECIMEN In office procedures/*Family Practice: Endometrial Biopsy Ibuprofen 800 MG tablet One tablet three times a day TAKE DIRECTED W/FOOD, 7 days, 0 refills EndCited Health Reminders - Assess BMI satisfied 04/16/2024. - Flu Shot satisfied 04/16/2024. - Mammogram satisfied 12/05/2023.
--- OUTSIDE RECORDS SUMMARY | 2025-02-15 13:03 | XMS_ITS | Clinical Summary ---
Author Organization [facility] Address [address] [place] [id number] Care Team Providers Care Lamp Replacer Name Role Phone Donald Rowell MD Unavailable [phone] Sin Mckeon NP Unavailable [phone] Hollie Zeng NP Primary Care Provider [phone] Adina Keating NP Unavailable [phone] Allergies Active Allergy Reactions Criticality Noted Date Comments Naproxen Vomiting Low Tramadol Unknown 09/22/2019 Leg cramps Medications losartan (COZAAR) 100 mg tabletIndications: Hypertension, essential Take 1 tablet (100 mg total) by mouth daily 90 tablet 1 4 025 Active atorvastatin (LIPITOR) 10 mg tabletIndications: Mixed hyperlipidemia Take 1 tablet (10 mg total) by mouth daily 90 tablet 1 4 025 Active oxyBUTYnin (DITROPAN) 5 mg tabletIndications: OAB (overactive bladder) Take 1 tablet (5 mg total) by mouth 2 (two) times a day 180 tablet [address] (PROTONIX) 40 mg EC tabletIndications: Gastroesophageal reflux disease, unspecified whether esophagitis present Take 1 tablet (40 mg total) by mouth daily 4 Active acetaminophen ER (Tylenol Arthritis Pain) 650 mg 8 hr tabletIndications: Primary osteoarthritis involving multiple joints Take 1 tablet (650 mg total) by mouth every 8 (eight) hours as needed for pain 4 Active cholecalciferol (VITAMIN D-3) 2000 unit capsuleIndications :Osteopenia after menopause Take 1 capsule (2,000 Units total) by mouth daily 4 Active calcium carbonate (CALTRATE 600 ORAL) Take 1 tablet by mouth every morning Active olopatadine (PATANOL) 0.1 % ophthalmic solutionIndication s:Allergic Conjunctivitis Administer 1 drop into the left eye 2 (two) times a day as needed for allergies 15 mL 4 4 025 Active buPROPion XL (WELLBUTRIN XL) 150 mg 24 hr tabletIndications: Recurrent major depressive disorder, in partial remission TAKE 1 TABLET EVERY MORNING 90 tablet 3 5 Active ibuprofen (ADVIL,MOTRIN) 800 mg tabletIndications: Primary osteoarthritis involving multiple joints Take 1 tablet (800 mg total) by mouth every 8 (eight) hours as needed for pain 90 tablet 1 5 Active levothyroxine (SYNTHROID) 125 mcg tabletIndications: Acquired hypothyroidism Take 1 tablet (125 mcg total) by mouth park activities coordinator before breakfast 90 tablet 1 5 026 Active atomoxetine (STRATTERA) 80 mg capsuleIndications :Attention-Deficit Hyperactivity Disorder Take 1 capsule (80 mg total) by mouth daily 90 capsule 5 025 Active Active Problems Problem Noted Date Diagnosed Date Fatigue 10/30/2024 Assessment & Plan (10/30/2024 9:23 PM HOOP COILING MACHINE OPERATOR): - differential broad- r/o MICHEL, anemia, thyroid dysfunction, B12 deficiency - mood overall stable; TORY-7 score 5, PHQ-9 score of 2 - [place] Sleepiness Score- 16 - home sleep study, referral to sleep medicine Anxiety and depression 10/04/2024 Assessment & Plan (10/04/2024 6:21 PM HOOP COILING MACHINE OPERATOR): - chronic, partially controlled - Continue bupropion XL 150 mg daily - Referral to Psychiatry - Notify office if concerns with mood/behavior Poor concentration 10/04/2024 Assessment & Plan (10/30/2024 9:26 PM HOOP COILING MACHINE OPERATOR): - ASR-v1 symptom checklist concerns for ADHD - Continue bupropion XL 150 mg daily, increase strattera to 80 mg daily - has been referred to psychiatry for official ADHD screening - reevaluate in 4-6 weeks Assessment & Plan (10/04/2024 6:21 PM HOOP COILING MACHINE OPERATOR): - ASR-v1 symptom checklist concerns for ADHD - Continue bupropion XL 150 mg daily, start Strattera 40 mg daily - Referral to Psychiatry for official ADHD screening - Re-evaluate in 4-6 weeks Class 3 severe obesity due t o excess calories with serious comorbidity and body mass index (BMI) of 40.0 to 44.9 in adult 10/04/2024 Assessment & Plan (10/30/2024 9:30 PM HOOP COILING MACHINE OPERATOR): - aim for at least 150 min aerobic activity weekly outside of work-related activity Assessment & Plan (10/04/2024 6:27 PM HOOP COILING MACHINE OPERATOR): - Consider DASH/Mediterranean type diet - Physically active at work, encouraged at least 30 minutes of aerobic activity on days off, strength training 2-3 times weekly Abnormal liver function tests 05/15/2024 Amenorrhea 05/15/2024 Anemia 05/15/2024 Blood in urine 05/15/2024 Chronic sciatica 05/15/2024 Cyst of left breast 05/15/2024 Foot pain 05/15/2024 Hyperglycemia 05/15/2024 Insomnia 05/15/2024 Menopausal flushing 05/15/2024 Microscopic hematuria 05/15/2024 Neuropathy 05/15/2024 Pain in thoracic spine 05/15/2024 Shoulder joint pain 05/15/2024 Renal impairment 05/15/2024 Urinary incontinence 05/15/2024 Urinary urgency 05/15/2024 Adnexal cyst 05/15/2024 PMB (postmenopausal bleeding) 05/15/2024 Osteopenia after menopause 05/06/2024 Assessment & Plan (05/06/2024 10:15 AM CDT): Continue Caltrate and Vit D supplement OAB (overactive bladder) 05/06/2024 Assessment & Plan (05/06/2024 10:16 AM CDT): Chronic, generally well controlled Continue Oxybutynin 5 mg BID Hypertension, essential 05/06/2024 Assessment & Plan (10/04/2024 6:25 PM HOOP COILING MACHINE OPERATOR): - Chronic, controlled - Continue losartan 100 mg daily - instructed that bupropion & strattera may increase BP - Continue to monitor BP and report if readings persistently > 140/90 Assessment & Plan (05/06/2024 10:16 AM CDT): Chronic, stable, well controlled BP at goal at visit; 112/82 Continue Losartan 100 mg daily Mixed hyperlipidemia 05/06/2024 Assessment & Plan (10/04/2024 6:29 PM HOOP COILING MACHINE OPERATOR): - chronic, controlled - Continue atorvastatin 10 mg nightly Assessment & Plan (05/06/2024 10:17 AM CDT): Chronic, well controlled Labs ordered Continue Atorvastatin 10 mg daily Claustrophobia 04/13/2024 Acute situational disturbance 04/10/2024 Elevated liver enzymes 03/19/2024 Swelling of both lower extremities 03/19/2024 Cobalamin deficiency 11/10/2023 Nicotine dependence 11/10/2023 Osteoarthritis of both knees 11/10/2023 Vitamin D deficiency 11/10/2023 Symptoms involving urinary system 02/05/2023 Coronary atherosclerosis 01/02/2023 GERD (gastroesophageal reflux disease) Assessment & Plan (05/06/2024 10:12 AM CDT): Chronic, generally well controlled Caffeine trigger Has upcoming appt with GI Continue Pantoprazole 40 mg daily Osteoarthritis 06/04/2022 Assessment & Plan (05/06/2024 10:14 AM CDT): Chronic, multiple joints Needs knee replacement but needs to lower BMI Takes Tylenol/Motrin as needed COVID-19 10/19/2021 Abnormal EKG 05/17/2020 Chest pain 05/17/2020 Pulmonary hypertension 05/17/2020 Hypothyroidism 03/20/2014 Assessment & Plan (10/04/2024 6:24 PM HOOP COILING MACHINE OPERATOR): - Chronic, euthyroid based on most recent TSH level - Continue levothyroxine 125 mcg daily - Repeat TSH next OV Assessment & Plan (05/06/2024 10:11 AM CDT): Chronic, most recent TSH not at goal at 12 Repeat labs today Levothyroxine 125 mcg daily; will adjust as needed Assessment & Plan (06/04/2022 5:26 PM CDT): Continue home Synthroid. 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 General surgery consulted, lap beryl anticipated tomorrow. Depression 03/20/2014 10/04/2024 Assessment & Plan (05/06/2024 10:12 AM CDT): Chronic, not currently well controlled Triggers are her recent weight gain Start Wellbutrin 150 mg daily Follow up 6 weeks Current smoker 07/13/2011 05/06/2024 Abdominal pain, epigastric 0 05/06/2024 Encounters Date Type Department Care Team Description 11/27/2024 Telephone [facility] [address] [facility] [address] [place] [phone] Elvira Schilling NP from Last 3 Months Immunizations Immunization Administration Dates Next Due Influenza, Quadrivalent, Radha l Culture-based MDCK, Preservative Free, Antibiotic Free, Intramuscular 09/08/2022 Influenza, Unspecified 09/09/2024,09/05/2023,11/2021 MMR 04/05/2010 Tdap 11/11/2023,08/22/2009 Surgical History Surgery Date Site/Laterality Comments TUBAL LIGATION Bilateral tubal ligation OTHER SURGICAL HISTORY MENORRHAGIA: D&C/FIBROIDS RESECTED TONSILLECTOMY Tonsillectomy CARPAL TUNNEL RELEASE Carpal tunnel release OTHER SURGICAL HISTORY endometrial lining infection KNEE SURGERY CHOLECYSTECTOMY 06/05/2022 Medical History Medical History Date Comments Hx Other Medical HUSB HEP C POS Hx Other Medical 2010 MENORRHAGIA Disorder of thyroid Thyroid dise ase Hx Other Medical high cholestero l Hx Other Medical back pain Arthritis Cyst of ovary Current smoker 07/13/2011 Acute cholecystitis 06/04/2022 Hypertension Hypercholesteremia Family History Medical History Relation Name Comments Other Father HYDROCEPHALUS; Coronary artery disease Mother Gwyn nary artery disease; Diabetes type II Mother Diabetes -T ype 2; Diabetes Other 1 Family history of diabetes; Hypertension Other 2 Family history of Hypertension; Arthritis Other 3 Family history of arthritis; Blood Clot Other 4 Family history of blood clots; Migraines Sister Migraines; Anesthesia problems Neg Hx Relation Name Status Comments Father Mother Other 1 Other 2 Other 3 Other 4 Sister Social History Tobacco Use Types Packs/Day Years Used Date Smoking Tobacco: Former Cigarettes Q uit: 2019 Passive Smoke Exposure: Past Smokeless Tobacco: Never Tobacco Cessation:Counseling Given: Not Answered Alcohol Use Standard Drinks/Week Comments Not Currently 0 (1 standard drink = 0.6 oz pur e alcohol) AUDIT-C Answer Date Recorded Q1: How often do you have a drink containing alcohol? Never 06/18/2024 Q2: How many drinks containi ng alcohol do you have on a typical day when you are drinking? Patient does not drink Q3: How often do you have si x or more drinks on one occasion? Never 06/18/2024 PHQ-2 Answer Date Recorded PHQ-2 Total Score (If total score is 3 or more points, staff should administer the PHQ-9) 2 10/15/2024 Personal Safety Answer Date Recorded Have you ever been in or are you currently in a harmful physical or emotional relationship or is someone making you feel afraid or unsafe? Denies 06/18/2024 Comments No Sex and Gender Information Value Date Recorded Sex Assigned at Not on file Legal Sex Female 11:35 AM HOOP COILING MACHINE OPERATOR Gender Identity Not on file Sexual Orientation Not on file Obstetrics History Para Term AB IAB SAB Ectopic Multiple Livin g Live Births 2 2 Date Outcome GA Total Labor Labor/2nd/3rd Weight Sex Type Anes PTL [place] A1 A5 Name Clin Last Filed Vital Signs Vital Sign Reading Time Taken Comments Blood Pressure 118/76 10/15/2024 2:06 PM HOOP COILING MACHINE OPERATOR Pulse 88 10/15/2024 2:06 PM HOOP COILING MACHINE OPERATOR Temperature 36.6 C (97.8 F) 10/15/2024 2:06 PM HOOP COILING MACHINE OPERATOR Respiratory Rate 18 10/15/2024 2:06 PM HOOP COILING MACHINE OPERATOR Oxygen Saturation 96% 09/17/2024 2:50 PM HOOP COILING MACHINE OPERATOR Inhaled Oxygen Concentration - - Weight 101.2 kg (223 lb) 10/15/2024 2:06 PM HOOP COILING MACHINE OPERATOR Height 157.5 cm (5' 2 ) 10/15/2024 2:06 PM HOOP COILING MACHINE OPERATOR Body Mass Index 40.79 10/15/2024 2:06 PM HOOP COILING MACHINE OPERATOR Plan of Treatment Health Maintenance Due Date Last Done Comments Cervical Cancer Screening 1964 Regular Well Visit/Exam 18-64 1982 Zoster Vaccine (1 of 2) 2014 Breast Cancer Screening-Mammogram 11/20/2023 11/20/2022, 03/11/2015 Covid-19 Vaccine ( season) 2024 08/08/2022, 10/16/2021, 04/05/2021, Additional history exists Colon Cancer Screening-Colonoscopy 03/21/2025 03/21/2015, 03/21/2015 Depression Screening 10/15/2025 10/15/2024, 09/17/2024, 05/06/2024, Additional history exists DTaP/Tdap/Td Vaccine (3 - Td or Tdap) 11/11/2033 11/11/2023, 08/22/2009 Colon Cancer Screening-CT Colonography Discontinued 03/21/2015, 03/21/2015 Colon Cancer Screening-DNA Stool Discontinued 03/21/2015, 03/21/2015 Colon Cancer Screening-FIT Discontinued 03/21/2015, Colon Cancer Screening-Sigmoidoscopy Discontinued 03/21/2015, 03/21/2015 Hepatitis C Screening Completed 06/16/2018 Hepatitis B Screening Completed 05/08/2024 Influenza Vaccine Completed 09/09/2024, , 09/08/2022, Additional history exists Pneumococcal vaccine <65 Aged Out No longer eligible based on patient's age to complete this topic Procedures Procedure Name Priority Date/Time Associated Diagnosis Comments SCREENING MAMMOGRAM BILATERAL W JOSE E Schedule Routine, Read Routine (OP Routine) 11/20/2022 1:25 PM HOOP COILING MACHINE OPERATOR HEPATITIS C ANTIBODY Routine 06/16/2018 11:45 AM CDT COLONOSCOPY IMAGES 03/21/2015 from Last 3 Months or Most Recently Relevant to Health Maintenance Results * Screening Mammogram Bilateral W Jose E (11/20/2022 1:25 PM HOOP COILING MACHINE OPERATOR) Anatomical Region Laterality Modality Breast Bilateral Mammography Historical Provider MD VALLEJO MAMMO PROCEDURES Vicky l Result * Hepatitis C antibody (06/16/2018 11:45 AM CDT) Hep C Ab Negative Negative DIANA GAO (KELLE) Comment:Testing performed by : [facility], [address] [place] [address]., [id number] Blood specimen (specimen) 06/16/2018 11:45 AM CDT 06/16/2018 12:09 PM CDT Narrative DIANA GAO (KELLE) - 06/16/2018 2:59 PM CDT Nikita Cast MD LAB MICROBIOLOGY - GENERAL SHEILA SHARMA Edited Result - Final DIANA GAO (KELLE) [facility] Department [place] [address] * COLONOSCOPY IMAGES (03/21/2015) Anatomical Region Laterality Modality Other Narrative 03/21/2015 Ordered by an unspecified provider. us Historical Provider GI PROCEDURE ORDERABLES F inal Result from Last 3 Months or Most Recently Relevant to Health Maintenance Insurance [facility] [employer] [facility] [employer] [place] [facility]MER[facility], [facility] ACCESS CHOICE Advance Directives For more information, please contact: [phone] * Full Code (Latest Code Status on File) Date Activated Date Inactivated Comments 06/04/2022 1:47 PM 06/06/2022 10:34 PM Care Teams Lamp Replacer Relationship Specialty Start Date End Date Hollie Zeng NP [address] [place] [address] PCP - General Family Medicine 05/06/24 Donald Rowell MD Surgeon General Surgery 06/06/22 Sin Mckeon NP [address] [place] [address] Family Medicine 02/19/24 Adina Keating NP [address] [facility] [place] [address] Nurse Practitioner Obstetrics and Gynecology 08/04/24
--- OUTSIDE RECORDS SUMMARY | 2025-02-15 13:03 | XMS_ITS | Referral Summary ---
Author Organization [address] [facility] Address [address] [place] [phone] Care Team Providers Care Switch Foreman Name Role Phone Donald Rowell MD Unavailable [phone] Sin Mckeon NP Unavailable [phone] Hollie Zeng NP Primary Care Provider [phone] Adina Keating NP Unavailable [phone] Encounters Date Type Department Care Team Description 11/27/2024 Telephone [facility] [id number] [place] [phone] Elvira Schilling NP from Last 3 Months Allergies Active Allergy Reactions Criticality Noted Date Comments Naproxen Vomiting Low Tramadol Unknown 09/22/2019 Leg cramps Medications losartan (COZAAR) 100 mg tabletIndications: Hypertension, essential Take 1 tablet (100 mg total) by mouth daily 90 tablet 1 4 025 Active atorvastatin (LIPITOR) 10 mg tabletIndications: Mixed hyperlipidemia Take 1 tablet (10 mg total) by mouth daily 90 tablet 4 025 Active oxyBUTYnin (DITROPAN) 5 mg [...] 1 tablet (125 mcg total) by mouth big data admin before breakfast 90 tablet 1 5 026 Active atomoxetine (STRATTERA) 80 mg capsuleIndications :Attention-Deficit Hyperactivity Disorder Take 1 capsule (80 mg total) by mouth daily 90 capsule 5 025 Active Active Problems Problem Noted Date Diagnosed Date Fatigue 10/30/2024 Assessment & Plan (10/30/2024 9:23 PM HOOKMAN): - differential broad- r/o MICHEL, anemia, thyroid dysfunction, B12 deficiency - mood overall stable; TORY-7 score 5, PHQ-9 score of 2 - [place] Sleepiness Score- 16 - home sleep study, referral to sleep medicine Anxiety and depression 10/04/2024 Assessment & Plan (10/04/2024 6:21 PM HOOKMAN): - chronic, partially controlled - Continue bupropion XL 150 mg daily - Referral to Psychiatry - Notify office if concerns with mood/behavior Poor concentration 10/04/2024 Assessment & Plan (10/30/2024 9:26 PM HOOKMAN): - ASR-v1 symptom checklist concerns for ADHD - Continue bupropion XL 150 mg daily, increase strattera to 80 mg daily - has been referred to psychiatry for official ADHD screening - reevaluate in 4-6 weeks Assessment & Plan (10/04/2024 6:21 PM HOOKMAN): - ASR-v1 symptom checklist concerns for ADHD - Continue bupropion XL 150 mg daily, start Strattera 40 mg daily - Referral to Psychiatry for official ADHD screening - Re-evaluate in 4-6 weeks Class 3 severe obesity due t o excess calories with serious comorbidity and body mass index (BMI) of 40.0 to 44.9 in adult 10/04/2024 Assessment & Plan (10/30/2024 9:30 PM HOOKMAN): - aim for at least 150 min aerobic activity weekly outside of work-related activity Assessment & Plan (10/04/2024 6:27 PM HOOKMAN): - Consider DASH/Mediterranean type diet - Physically [...] 05/06/2024 Assessment & Plan (10/04/2024 6:25 PM HOOKMAN): - Chronic, controlled - Continue losartan 100 mg daily - instructed that bupropion & strattera may increase BP - Continue to monitor BP and report if readings persistently > 140/90 Assessment & Plan (05/06/2024 10:16 AM CDT): Chronic, stable, well controlled BP at goal at visit; 112/82 Continue Losartan 100 mg daily Mixed hyperlipidemia 05/06/2024 Assessment & Plan (10/04/2024 6:29 PM HOOKMAN): - chronic, controlled - Continue atorvastatin 10 [...] 03/20/2014 Assessment & Plan (10/04/2024 6:24 PM HOOKMAN): - Chronic, euthyroid based on most recent [...] importance of healthy diet and exercise 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 Follow up 6 weeks Acute cholecystitis 06/04/2022 05/06/20 24 Assessment & Plan (06/04/2022 5:26 PM CDT): [...] 07/13/2011 05/06/2024 Abdominal pain, epigastric 0 05/06/2024 Immunizations Immunization Administration Dates Next Due Influenza, Quadrivalent, Radha l Culture-based MDCK, Preservative Free, Antibiotic Free, Intramuscular 09/08/2022 Influenza, Unspecified 09/09/2024,09/05/2023,11/2021 MMR 04/05/2010 Tdap 11/11/2023,08/22/2009 Social History Tobacco Use Types Packs/Day Years [...] on file Legal Sex Female 11:35 AM HOOKMAN Gender Identity Not on file Sexual Orientation Not on file Last Filed Vital Signs Vital Sign Reading Time Taken Comments Blood Pressure 118/76 10/15/2024 2:06 PM HOOKMAN Pulse 88 10/15/2024 2:06 PM HOOKMAN Temperature 36.6 C (97.8 F) 10/15/2024 2:06 PM HOOKMAN Respiratory Rate 18 10/15/2024 2:06 PM HOOKMAN Oxygen Saturation 96% 09/17/2024 2:50 PM HOOKMAN Inhaled Oxygen Concentration - - Weight 101.2 kg (223 lb) 10/15/2024 2:06 PM HOOKMAN Height 157.5 cm (5' 2 ) 10/15/2024 2:06 PM HOOKMAN Body Mass Index 40.79 10/15/2024 2:06 PM HOOKMAN Plan of Treatment Not on file Procedures Procedure Name Priority Date/Time Associated Diagnosis Comments SCREENING MAMMOGRAM BILATERAL W JOSE E Schedule Routine, Read Routine (OP Routine) 11/20/2022 1:25 PM HOOKMAN HEPATITIS C ANTIBODY Routine 06/16/2018 11:45 AM CDT COLONOSCOPY IMAGES 03/21/2015 from Last 3 Months or Most Recently Relevant to Health Maintenance Results * Screening Mammogram Bilateral W Jose E (11/20/2022 1:25 PM HOOKMAN) Anatomical Region Laterality Modality Breast Bilateral Mammography Historical Provider IMG MAMMO PROCEDURES Vicky tapia Result * Hepatitis C antibody (06/16/2018 11:45 AM CDT) Hep C Ab Negative Negative DIANA GAO (KELLE) Comment:Testing performed by : [facility], [address] [place] [address], [place], [place]., [facility] Blood specimen (specimen) 06/16/2018 11:45 AM CDT 06/16/2018 12:09 PM CDT Narrative DIANA GAO (KELLE) - 06/16/2018 2:59 PM CDT Nikita Cast MD LAB MICROBIOLOGY - GENERAL SHEILA SHARMA Edited Result - Final DIANA GAO (DYESS) 1 [facility] Department [place] [address] * COLONOSCOPY IMAGES (03/21/2015) Anatomical Region Laterality Modality Other Narrative 03/21/2015 Ordered by an unspecified provider. Historical Provider GI PROCEDURE ORDERABLES F inal Result from Last 3 Months or Most Recently Relevant to Health Maintenance Insurance [employer] [place] [facility] [place] [employer] ACCESS CHOICE Advance Directives For more information, please contact: [phone] * Full Code (Latest Code Status on File) Date Activated Date Inactivated Comments 06/04/2022 1:47 PM 06/06/2022 10:34 PM Care Teams Switch Foreman Relationship Specialty Start Date End Date Hollie Zeng NP [address] [place] [address] PCP - General Family Medicine 05/06/24 Donald Rowell MD Surgeon General Surgery 06/06/22 Sin Mckeon NP [address] [place] [address] Family Medicine 02/19/24 Adina Keating NP [address] [facility] [place] [address] Nurse Practitioner Obstetrics and Gynecology 08/04/24
--- OUTSIDE RECORDS SUMMARY | 2025-02-15 13:04 | XMS_ITS ---
Author Organization [facility] Address [address] [place] [address] Phone Care Team Providers Care Artist'S Representative Name Role Phone VIVIANA RUSS MD Primary Care Provider Problems Includes: Active, inactive, and resolved Problems All Visits Onset Date Resolved Date Provider Condition S tatus BENIGN NEOPLASM LG BOWEL 03/29/2015 JIMMIE KEATING RN N P BC Active Last Documented On 5 10:58AM ; [facility] Endometrial Hyperplasia 03/29/2015 LUIS ALFREDO KEATING RN NP BC Active Last Documented On 5 11:10AM ; [facility] Note: Unchanged Nonpuerperal Uterine Hypertrophy 03/29/2015 JIMMIE KEATING RN MUSA BC Active Last Documented On 5 11:10AM ; [facility] Note: Unchanged Dysmenorrhea Secondary 03/02/2015 JIMMIE KEATING RN MUSA BC Active Last Documented On 5 11:04AM ; [facility] Note: Unchanged History of Hyperlipidemia 03/02/2015 TAMMIE KEATING RN MUSA BC Active Last Documented On 5 11:52AM ; [facility] Note: Unchanged History of Thyroid Disorders 03/02/2015 JIMMIE KEATING RN MUSA BC Active Last Documented On 5 11:52AM ; [facility] Note: Unchanged Menorrhagia 03/02/2015 JIMMIE Mendez MUSA BC Active Last Documented On 5 11:04AM ; [facility] Note: Unchanged Tobacco Use 03/02/2015 JIMMIE Mendez MUSA BC Active Last Documented On 5 11:52AM ; [facility] Note: Unchanged - 10 a day Fam Hx-Cardiovas Dis NEC 03/01/2015 JOB Gallardo [facility] Active Last Documented On 5 8:25AM ; [facility] Note: Unchanged FAM HX-DIABETES MELLITUS 03/01/2015 JOB [facility]RILLOKADY [facility] Active Last Documented On 5 8:25AM ; [facility] Note: Unchanged Uterine Neoplasm, Benign Leiomyoma 03/01/2015 JIMMIE Gallardo [facility] Active Last Documented On 5 8:24AM ; [facility] Graves' Disease (Diffuse Toxic Goiter) Without Thyrotoxic Crisis/storm 07/13/2011 JIMMIE KEATING RN [facility] Active Last Documented On 03/02/2015 12:48PM ; [facility] Note: Unchanged - DR. JOSUÉ CHAN ENDOC RINE S/P RADIOACTIVE IODINE GRAVES [place] History of Herpes Simplex Type II 01/23/2011 REBECCA TERAN Active Last Documented On 01/23/2011 8:37AM ; [facility] Note: Unchanged Plan of Treatment Findings Encounter Date Ordered Clinical summary pro vided to patient WELL WOMAN - NEW PATIENT with JIMMIE Gallardo [facility] 02/17/2024 Last Documented On 4 11:40AM ; [facility] Ordered weight loss diet WELL WOMAN - NE W PATIENT with JIMMIE KEATING RN [facility] 02/17/2024 Last Documented On 4 11:40AM ; [facility] Ordered Clinical summary pro vided to patient ENDOMETRIAL BIOPSY with JIMMIE KEATING RN [facility] 03/31/2015 Last Documented On 5 9:38AM ; [facility] Ordered Clinical summary pro vided to patient NEW TOGGLER EXAM with JIMMIE KEATING RN [facility] 03/02/2015 Last Documented On 5 12:52PM ; [facility] Ordered follow-up visit 1 ye ar or as needed NEW TOGGLER EXAM with REBECCA TERAN 01/23/2011 Last Documented On 1 8:07AM ; [facility] Pending Tests Order Diagnosis Results Due Ordering Tu ruelas Radiology @ other - *MAMMOGRAPHY SCREENING MAMMOGRAM Encntr screen mammogram for malignant neoplasm of breast 01/02/25 JIMMIE KEATING RN [facility] Last Documented On 4 3:40PM ; [facility] 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[facility] [address] [address] - Other intra-abdominal and pelvic swelling, mass and lump Note: 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 for L ova ruben hyperintense cystic lesion heterogeneous enhancing tissue within endometrial cavity both concerning for neoplasms per MRI, EMB and Ca 125 WNL Last Documented On 4 11:51AM ; [facility] Instructions to patient Instructed to call if excess tamara bleeding or abdominal/pelvic pain Last Documented On 4 11:24AM ; [facility] Patient may take Motrin OTC PRN as directed Last Documented On 4 11:24AM ; [facility] Instructions for patient ER if bleeding through reg. sized pad/tampon < 1 hour, ER pelvic pain precautions given Last Documented On 4 9:21AM ; [facility] Instructions for patient : p atient is to keep a menstrual diary to help with further evaluation and treatment Last Documented On 4 9:18AM ; [facility] Instructed to call if excess tamara bleeding or abdominal/pelvic pain Last Documented On 4 8:35AM ; [facility] Instructions For Patient: Mo nthly Self Breast Exam Last Documented On 4 8:35AM ; [facility] Recommend diet and exercise at least 30 min three times per week Last Documented On 4 8:35AM ; [facility] Instructed to call if excess tamara bleeding or abdominal/pelvic pain Last Documented On 5 8:59AM ; [facility] Patient may take Motrin OTC PRN as directed Last Documented On 5 8:59AM ; [facility] Instructions for patient : B reast Self Exam discussed and technique reviewed Last Documented On 5 11:04AM ; [facility] Use a condom during sexual i ntercourse Last Documented On 5 11:04AM ; [facility] Instructed to call if excess tamara bleeding or abdominal/pelvic pain Last Documented On 5 11:04AM ; [facility] Recommend diet and exercise at least 30 min three times per week Last Documented On 5 11:04AM ; [facility] Recommend preventative vacci nation including but not limited to influenza/flu vaccine, DTP, Rubella, Hepatitis B vaccination series Last Documented On 5 11:04AM ; [facility] Instructions for patient : B reast Self Exam discussed. Reviewed monthly self breast examination and technique Last Documented On 1 8:27AM ; [facility] Recommend diet and exercise at least 30 min three times per week Last Documented On 1 8:27AM ; [facility] Recommend preventative vacci nation including but not limited to influenza/flu vaccine, DTP, Rubella, Hepatitis B vaccination series Last Documented On 1 8:27AM ; [facility] Recommend annual pap smear e xamination or every three year if high risk hpv negative and 3 consecutive normal pap examination during preceding three years Last Documented On 1 8:27AM ; [facility] Recommend TSH, fasting gluco se, fasting lipid panel, CBC, BMP Last Documented On 1 8:27AM ; [facility] Recommend Calcium supplement ation and weight bearing exercise Gave handouts on endometrial ablation, endometrial biopsy, mirena IUD, discussed Depo. ~Patient to schedule transvaginal u/s and endometrial biopsy with Dr. Valles ~Health Maintenance panel adn DUB panel ~Patient is considering Endometrial ablation. ~Decrease caffeine ~Vitamin E 800 units a day Last Documented On 1 9:05AM ; [facility] Education and Decision Aids were provided during visit for: INFORMED CONSENT DISCUSSION: Endometrial biopsy was discussed in detail including discomfort, insufficient specimen with need to repeat test, and rare incidence of uterine perforation. Patient expressed understanding of the above and consented to the procedure Last Documented On 4 11:24AM ; [facility] Patient Education: Daily noah cium and vitamin D Last Documented On 4 8:35AM ; [facility] INFORMED CONSENT DISCUSSION: Endometrial biopsy was discussed in detail including discomfort, insufficient specimen with need to repeat test, and rare incidence of uterine perforation. Patient expressed understanding of the above and consented to the procedure Last Documented On 5 8:14AM ; [facility] Discussed smoking and drug u se Last Documented On 5 11:04AM ; [facility] Patient Education: Daily noah cium and vitamin D Last Documented On 5 11:04AM ; [facility] Assessments Includes: Assessments for all patient encounters Findings Encounter Date Postmenopausal bleeding PROCEDURE OFFICE with TAMMIE KEATING RN [facility] 04/16/2024 Last Documented On 4 11:30AM ; [facility] Postmenopausal bleeding WELL WOMAN - NEW PATIENT with JIMMIE KEATING RN [facility] 02/17/2024 Last Documented On 4 11:40AM ; [facility] Routine gynecological exam w ith abnormal findings WELL WOMAN - NEW PATIENT with JIMMIE KEATING RN [facility] 02/17/2024 Last Documented On 4 11:40AM ; [facility] Screen malignant neoplasm cervix WELL WO MAN - NEW PATIENT with JIMMIE KEATING RN [facility] 02/17/2024 Last Documented On 4 11:40AM ; [facility] Vaginitis WELL WOMAN - NEW PATIENT with TAMMIE KEATING RN [facility] 02/17/2024 Last Documented On 4 11:40AM ; [facility] Menorrhagia CONSULTATION with VIVIANA RUSS MD 07/01/2015 Last Documented On 5 2:14PM ; [facility] Endometritis * PHONE CALL with JIMMIE KEATING RN [facility] 04/04/2015 Last Documented On 5 9:11AM ; [facility] Endometrial hyperplasia ENDOMETRIAL BIOPSY with JIMMIE KEATING RN [facility] 03/31/2015 Last Documented On 5 9:38AM ; [facility] Leiomyoma of the uterus ENDOMETRIAL BIOPSY with JIMMIE KEATING RN [facility] 03/31/2015 Last Documented On 5 9:38AM ; [facility] Menorrhagia ENDOMETRIAL BIOPSY with JIMMIE KEATING RN [facility] 03/31/2015 Last Documented On 5 9:38AM ; [facility] Nonpuerperal uterine hypertrophy ENDOMET RIAL BIOPSY with JIMMIE KEATING RN [facility] 03/31/2015 Last Documented On 5 9:38AM ; [facility] Endometrial hyperplasia PELVIC W/TVT with JIMMIE KEATING RN [facility] 03/14/2015 Last Documented On 5 11:13AM ; [facility] Leiomyoma of the uterus PELVIC W/TVT with JIMMIE KEATING RN [facility] 03/14/2015 Last Documented On 5 11:13AM ; [facility] Menorrhagia PELVIC W/TVT with JIMMIE KEATING RN [facility] 03/14/2015 Last Documented On 5 11:13AM ; [facility] Nonpuerperal uterine hypertrophy PELVIC W/TVT with JIMMIE KEATING RN [facility] 03/14/2015 Last Documented On 5 11:13AM ; [facility] Secondary dysmenorrhea PELVIC W/TVT with JIMMIE KEATING RN [facility] 03/14/2015 Last Documented On 5 11:13AM ; [facility] Dysmenorrhea NEW TOGGLER EXAM with JIMMIE KEATING RN [facility] 03/02/2015 Last Documented On 5 12:52PM ; [facility] Exposure to STD NEW TOGGLER EXAM with JIMMIE KEATING RN [facility] 03/02/2015 Last Documented On 5 12:52PM ; [facility] Graves' disease without thyr otoxic crisis or storm NEW TOGGLER EXAM with JIMMIE KEATING RN [facility] 03/02/2015 Last Documented On 5 12:52PM ; [facility] MAMMOGRAM SCREENING NEW TOGGLER EXAM with JIMMIE MURRY RN [facility] 03/02/2015 Last Documented On 5 12:52PM ; [facility] Menorrhagia NEW TOGGLER EXAM with JIMMIE KEATING RN [facility] 03/02/2015 Last Documented On 5 12:52PM ; [facility] Risk: tobacco use NEW TOGGLER EXAM with JIMMIE Covarrubias RN [facility] 03/02/2015 Last Documented On 5 12:52PM ; [facility] Routine gynecological exam NEW TOGGLER EXAM with JOB KEATING RN [facility] 03/02/2015 Last Documented On 5 12:52PM ; [facility] Screening Malig. Neoplasm Rectum NEW TOGGLER EXAM with JIMMIE KEATING RN [facility] 03/02/2015 Last Documented On 5 12:52PM ; [facility] POST OP VISIT HYSTEROSCOPIC MYOMECTOMY AND POLYPECTOMY POST OP VISIT with LILLIAN BAUMANN M.D. 03/15/2011 Last Documented On 1 4:07PM ; [facility] Dysfunctional uterine bleeding PREOP EXAM with Jerome BAUMANN M.D. 02/28/2011 Last Documented On 1 2:49PM ; [facility] Leiomyoma of the uterus PREOP EXAM with LILLIAN BAUMANN M.D. 02/28/2011 Last Documented On 1 2:49PM ; [facility] Dysfunctional uterine bleeding CONSULTATION with LILLIAN BAUMANN M.D. 02/13/2011 Last Documented On 1 2:17PM ; [facility] Dysfunctional uterine bleeding NEW TOGGLER EXAM with REBECCA M URAM 01/23/2011 Last Documented On 1 8:07AM ; [facility] Dysmenorrhea NEW TOGGLER EXAM with REBECCA M UR AM 01/23/2011 Last Documented On 1 8:07AM ; [facility] Menorrhagia NEW TOGGLER EXAM with REBECCA M UR AM 01/23/2011 Last Documented On 1 8:07AM ; [facility] NORMAL FEMALE EXAM NEW TOGGLER EXAM with REBECCA M URAM 01/23/2011 Last Documented On 1 8:07AM ; [facility] Instructions Includes: Instructions for all patient encounters Instructions to patient Instructed to call if excess tamara bleeding or abdominal/pelvic pain Last Documented On 4 11:24AM ; [facility] Patient may take Motrin OTC PRN as directed Last Documented On 4 11:24AM ; [facility] Instructions for patient ER if bleeding through reg. sized pad/tampon < 1 hour, ER pelvic pain precautions given Last Documented On 4 9:21AM ; [facility] Instructions for patient : p atient is to keep a menstrual diary to help with further evaluation and treatment Last Documented On 4 9:18AM ; [facility] Instructed to call if excess tamara bleeding or abdominal/pelvic pain Last Documented On 4 8:35AM ; [facility] Instructions For Patient: Mo nthly Self Breast Exam Last Documented On 4 8:35AM ; [facility] Recommend diet and exercise at least 30 min three times per week Last Documented On 4 8:35AM ; [facility] Instructed to call if excess tamara bleeding or abdominal/pelvic pain Last Documented On 5 8:59AM ; [facility] Patient may take Motrin OTC PRN as directed Last Documented On 5 8:59AM ; [facility] Instructions for patient : B reast Self Exam discussed and technique reviewed Last Documented On 5 11:04AM ; [facility] Use a condom during sexual i ntercourse Last Documented On 5 11:04AM ; [facility] Instructed to call if excess tamara bleeding or abdominal/pelvic pain Last Documented On 5 11:04AM ; [facility] Recommend diet and exercise at least 30 min three times per week Last Documented On 5 11:04AM ; [facility] Recommend preventative vacci nation including but not limited to influenza/flu vaccine, DTP, Rubella, Hepatitis B vaccination series Last Documented On 5 11:04AM ; [facility] Instructions for patient : B reast Self Exam discussed. Reviewed monthly self breast examination and technique Last Documented On 1 8:27AM ; [facility] Recommend diet and exercise at least 30 min three times per week Last Documented On 1 8:27AM ; [facility] Recommend preventative vacci nation including but not limited to influenza/flu vaccine, DTP, Rubella, Hepatitis B vaccination series Last Documented On 1 8:27AM ; [facility] Recommend annual pap smear e xamination or every three year if high risk hpv negative and 3 consecutive normal pap examination during preceding three years Last Documented On 1 8:27AM ; [facility] Recommend TSH, fasting gluco se, fasting lipid panel, CBC, BMP Last Documented On 1 8:27AM ; [facility] Recommend Calcium supplement ation and weight bearing exercise Gave handouts on endometrial ablation, endometrial biopsy, mirena IUD, discussed Depo. ~Patient to schedule transvaginal u/s and endometrial biopsy with Dr. Valles ~Health Maintenance panel adn DUB panel ~Patient is considering Endometrial ablation. ~Decrease caffeine ~Vitamin E 800 units a day Last Documented On 1 9:05AM ; [facility] Education and Decision Aids were provided during visit for: INFORMED CONSENT DISCUSSION: Endometrial biopsy was discussed in detail including discomfort, insufficient specimen with need to repeat test, and rare incidence of uterine perforation. Patient expressed understanding of the above and consented to the procedure Last Documented On 4 11:24AM ; [facility] Patient Education: Daily noah cium and vitamin D Last Documented On 4 8:35AM ; [facility] INFORMED CONSENT DISCUSSION: Endometrial biopsy was discussed in detail including discomfort, insufficient specimen with need to repeat test, and rare incidence of uterine perforation. Patient expressed understanding of the above and consented to the procedure Last Documented On 5 8:14AM ; [facility] Discussed smoking and drug u se Last Documented On 5 11:04AM ; [facility] Patient Education: Daily noah cium and vitamin D Last Documented On 5 11:04AM ; [facility] Medical Equipment - Implanted Devices Includes: Current and historical Devices No Medical Equipment Recorded Medications Includes: Current and historical Medications Current Medications (continue as prescribed) Caltrate 600+D3 600-20 MG-MCG Oral Tablet 04/16/2024 Provider: Diagnosis: Last Documented On 04/16/2024 10:49AM By Estrella Rolon ; [facility] Lipitor 10 MG Oral Tablet 02/17/2024 Provider: Diagnosis: Last Documented On 02/17/2024 8:25AM By Estrella Rolon ; [facility] Pantoprazole Sodium 40 MG Oral Packet 02/17/2024 Pro vider: Diagnosis: Last Documented On 02/17/2024 8:26AM By Estrella Rolon ; [facility] oxyBUTYnin Chloride 5 MG Oral Tablet 02/17/2024 Prov ider: Diagnosis: Last Documented On 02/17/2024 8:26AM By Estrella Rolon ; [facility] Losartan Potassium 100 MG Oral Tablet 02/17/2024 Pro vider: Diagnosis: Last Documented On 02/17/2024 8:26AM By Estrella Rolon ; [facility] Vitamin D3 250 MCG (32584 UT) Oral Capsule 024 Provider: Diagnosis: Last Documented On 02/17/2024 8:26AM By Estrella Rolon ; [facility] Levothyroxine Sodium 125 MCG Tablet 03/02/2015 Provi chelsie: Diagnosis: Last Documented On 03/02/2015 10:41AM By ANGELITA SOW ; [facility] Past Medications on file Ibuprofen 800 MG Oral Tablet 04/16/2024 - 04/23/2024 Provider: JIMMIE NATION BC Diagnosis: Postmenopausal b leeding One tablet three times a day TAKE DIRECTED W/FOOD Last Documented On 4 11:33AM By JIMMIE ORTEGA ; [facility] levoFLOXacin 500 MG Oral Tablet 02/17/2024 - 02/24/2024 Provider: JIMMIE NATION BC Diagnosis: Acute vaginitis One tablet daily Last Documented On 4 9:09AM By JIMMIE ORTEGA ; [facility] MetroNIDAZOLE 500 MG Tablet 04/04/2015 - 04/14/2015 Provider: JIMMIE NATION BC Diagnosis: UTERINE INFLAM D IS NOS 1 BID ONE TAB TWICE A DAY W/FOOD ETOH WARNINGS Last Documented On 5 10:40AM By JIMMIE ORTEGA ; [facility] Ibuprofen 800 MG Tablet 03/31/2015 - 04/15/2015 Provid er: JIMMIE NATION BC Diagnosis: DYSMENORRHEA 1 three times daily USE DIRECTED Last Documented On 5 9:38AM By JIMMIE ORTEGA ; [facility] Meloxicam 15 MG Tablet 03/02/2015 - 03/31/2015 Provide r: Diagnosis: Last Documented On 03/31/2015 8:27AM By BHARATI HAYS ; [facility] Ibuprofen 800 MG Tablet 03/02/2015 - 03/31/2015 Provid er: JIMMIE KEATING RN [facility] Diagnosis: DYSMENORRHEA 1 three times daily USE DIRECTED Last Documented On 5 9:37AM By JIMMIE ORTEGA ; [facility] Tranexamic Acid 650 MG Tablet 03/02/2015 - 03/17/2015 Provider: JIMMIE NATION Diagnosis: Excessive Menstr uation as directed TAKE 2 TABS 3 TI MES A DAY DAY 1 OF MENSES Last Documented On 5 11:45AM By JIMMIE ORTEGA ; [facility] Daypro 600 MG OR TABS 01/23/2011 - 03/31/2015 Provider : REBECCA TERAN Diagnosis: DYSMENORRHEA One tablet PO BID PRN (menstrual cramps) Last Documented On 03/31/2015 8:26AM By BHARATI HAYS ; [facility] Medications Administered Includes: Administered Medications in patient's chart No Administered Medications Recorded Vital Signs Includes: Vital Signs from 02/16/2024 through 02/15/2025 Vital Name 04/16/2024 10:41A 02/17/2024 08: 16A Blood Pressure Sitting L 112/70 126/78 BP Cuff Size Large Regular Temp-Temporal 97.7 97.6 Height (in) 62 62 Weight (lb) 218 215 Body Mass Index 39.9 39.3 Body Surface Area 2 2 Last Documented: On 04/16/2024 10:50A M ; [facility] On 02/17/2024 8:22AM ; [facility] Results Includes: Results from 02/16/2024 through 02/15/2025 PATHOLOGY SPECIMEN [facility] La boratory Ordered by JIMMIE KEATING RN [facility] on 04/16/2024 [address] [place], [address] Collected: 04/16/2024 Report ed: 04/22/2024 08:37 tel: Last Documented On 12:41PM ; [facility] Reviewed by JIMMIE KEATING RN [facility] on 04/22/2024; All test results are final unless otherwise noted. Review Note Provider Name Date see chart JIMMIE CASTRO 024 PATH YES None Last Documented On 04/22/2024 9:28AM ; [facility] Note: Responsible Observer: (PA) PATHOLOGY SPECIMEN See Note None Last Documented On 04/22/2024 9:28AM ; [facility] Note: Performing Lab: [address] [address]Accession #: [id number]/Age/Gender: 1965 (Age: 58) / FProcedure Date: 04/16/2024SPECIMEN(S) RECEIVEDA:Endometrium, biopsyFINAL PATHOLOGIC DIAGNOSISA. Endometrium, biopsy: - Inactive endometrial gland fragments consistent with atrophy - Fragments of endocervical mucosa - No evidence of hyperplasia or malignancyELECTRONICALLY VERIFIED BY NIKOLE BELL MD04/21/2024 15:14CLINICAL HISTORYPostmenopausal bleedingGROSS DESCRIPTIONThe specimen container(s) and requisition have the same patient name. Receivedin formalin labeled EMB is a 1.9 x 1.2 x 0.7 cm aggregate of red-pink bloodclot and mucoid material. The specimen is entirely submitted in cassette A1. Thetissue is processed as formalin-fixed paraffin-embedded sections.[facility]/04/17/2024END OF REPORTResponsible Observer: (PA) Reported Physicians [facility] [place] Ordered by JIMMIE KEATING RN [facility] on 04/16/2024 [address] , [place], [address] Collected: 04/16/2024 Report ed: 04/22/2024 08:37 tel: Last Documented On 12:41PM ; [facility] Reviewed by JIMMIE KEATING RN [facility] on 04/22/2024; All test results are final unless otherwise noted. Review Note Provider Name Date see chart JIMMIE KEATING RN [facility] 024 Reported Physicians See Note None Last Documented On 04/22/2024 9:28AM ; [facility] Note: Reported Physicians:Ordering: Jimmie Keating: JIMMIE KEATINGConsulting: VIVIANA RUSS PAP WITH HPV [facility] [place] Ordered by JIMMIE KEATING RN [facility] on 02/17/2024 [address] , [place], [address] Collected: 02/17/2024 Report ed: 02/19/2024 10:32 tel: Last Documented On 4 8:51AM ; [facility] Reviewed on 04/01/2024; All test results are final unless otherwise noted. HPV mRNA E6/E7 Not Detected (Not Detected) N (Normal) Last Documented On 4 8:31PM ; [facility] Note: Methodology: Digital Advisor-Mediate d AmplificationThis assay detects E6/E7 viral messenger RNA (mRNA) from 14high-risk HPV types (16,18,31,33,35,39,45,51,52,56,58,59,66,68).Cervical sources are required for HPV testing.If a vaginal source from a patient who has had atotal hysterectomy with removal of cervix wassubmitted, please contact the testing laboratoryfor alternative testing options.For additional information, please refer [email or web address](This link if provided for information/educational purposes only.)THIS TEST WAS PERFORMED AT:[employer] [id number] [place] [address]GMLZ-[id number] VO,MDEXPLANATORY NOTE:The Pap is a screening test for cervical cancer. It isnot a diagnostic test and is subject to false negativeand false positive results. It is most reliable when asatisfactory sample, regularly obtained, is submittedwith relevant clinical findings and history, and whenthe Pap result is evaluated along with historic andcurrent clinical information.THIS TEST WAS PERFORMED AT:[facility] [address] [place] [address]PVQI-KQAQ VO,MDResponsible Observer: (rfl) PAP SMEAR ABNORMAL? NO None Last Documented On 4 8:31PM ; [facility] Note: Responsible Observer: (TER) PAP WITH HPV See Note None Last Documented On 4 8:31PM ; [facility] Note: [id number] givenCe rvixSatisfactory for evaluation.Endocervical/transformation zone componentpresent.Cytology Results: Negative for intraepitheliallesion or malignancy.This Pap test has been evaluated with computerassisted technology.PCM, CT(ASCP)CT Screening Location: [place] [address] [place], [place] [address]Gdmbtiegrmx Observer: (TER) Reported Physicians [facility] [place] Ordered by JIMMIE KEATING RN [facility] on 02/17/2024 [address] [facility], [place], [address] Collected: 02/17/2024 Report ed: 02/19/2024 10:32 tel: Last Documented On 4 8:51AM ; [facility] Reviewed on 04/01/2024; All test results are final unless otherwise noted. Reported Physicians See Note None Last Documented On 03/31/2024 8:31PM ; [facility] Note: Reported Physicians:Ordering: Jimmie Keating MAttending: JIMMIE KEATINGConsulting: VIVIANA RUSS History of Present Illness History of Present Illness not supported for this document type No History of Present Illness Recorded Social History Description Last Updated Social history changed grand daughter recently lost both legs after being hit by a train 02/17/2024 Last Documented On 4 11:40AM ; [facility] Education history 02/17/2024 Last Documented On 4 11:40AM ; [facility] Educational level 02/17/2024 Last Documented On 4 11:40AM ; [facility] Educational level: grade 14 02/17/2024 Last Documented On 4 11:40AM ; [facility] In monogamous relationship 02/17/2024 Last Documented On 4 11:40AM ; [facility] Marital history 02/17/2024 Last Documented On 4 11:40AM ; [facility] Not exercising regularly 02/17/2024 Last Documented On 4 11:40AM ; [facility] Not using alcohol 02/17/2024 Last Documented On 4 11:40AM ; [facility] Personal history 02/17/2024 Last Documented On 4 11:40AM ; [facility] Sexually active 02/17/2024 Last Documented On 4 11:40AM ; [facility] Sexually active with 1 partners in the l ast year 02/17/2024 Last Documented On 4 11:40AM ; [facility] Tobacco non-user 02/17/2024 Last Documented On 4 11:40AM ; [facility] Former smoker 02/17/2024 Last Documented On 4 11:40AM ; [facility] Has not used injectable drugs 02/17/2024 Last Documented On 4 11:40AM ; [facility] No consumption of alcohol 02/17/2024 Last Documented On 4 11:40AM ; [facility] Not using drugs 02/17/2024 Last Documented On 4 11:40AM ; [facility] Stopped smoking years ago 2019? 02/17/20 Last Documented On 4 11:40AM ; [facility] Smoking Status Unknown Procedures and Surgical History Includes: Procedures from 02/16/2024 through 02/15/2025 Procedures Code Diagnosis Performing Provider Service Location Service Date ENDOMERIAL BIOPSY 94426 Postmenopausal bleeding JIMMIE KEATING RN [facility] 04/16/2024 Last Documented On 4 11:31AM ; [facility] OBTAINING A PAP SMEAR (DISTINCT PROCEDURAL SERVICE DIFFERENT SITE) Q0091 Encounter for screening for malignant neoplasm of cervix JIMMIE KEATING RN [facility] 02/17/2024 Last Documented On 4 3:13PM ; [facility] Surgical History Last Updated Surgical / procedural histor y knee, tubal in 1992 ~CARPAL TUNNEL---left 06/02/2015 07/01/2015 Last Documented On 5 2:14PM ; [facility] Surgical history unchanged 03/02/2015 Last Documented On 5 12:52PM ; [facility] History of tubal ligation 1992 5 Last Documented On 5 12:52PM ; [facility] Tonsillectomy 01/23/2011 Last Documented On 1 8:07AM ; [facility] Medical History Includes: Medical History in patient's chart Description Last Updated Last pap smear date 02/17/2024 04/16/2024 Last Documented On 4 11:30AM ; [facility] History of screening mammogram was perfo rmed 12/202302/17/2024 Last Documented On 4 11:40AM ; [facility] Primary Care Provider: DR WHEATLEY 4 Last Documented On 4 11:40AM ; [facility] Last mammogram date: 12/202302/17/2024 Last Documented On 4 11:40AM ; [facility] History of Pap smear done 2014 4 Last Documented On 4 11:40AM ; [facility] # 1 Anesthesia: Epidural 02/17/2024 Last Documented On 4 11:40AM ; [facility] # 1 Delivery date: 11/15/90 02/17/2024 Last Documented On 4 11:40AM ; [facility] # 1 Hours in labor 10 hours? 02/17/2024 Last Documented On 4 11:40AM ; [facility] # 1 type delivery: Vaginal 02/17/2024 Last Documented On 4 11:40AM ; [facility] # 1 Weight 7 14 02/17/2024 Last Documented On 4 11:40AM ; [facility] # 2 type delivery: Vaginal 02/17/2024 Last Documented On 4 11:40AM ; [facility] # 2 Anesthesia: Epidural 02/17/2024 Last Documented On 4 11:40AM ; [facility] # 2 Complications: None 02/17/2024 Last Documented On 4 11:40AM ; [facility] # 2 Delivery date: 11/27/92 02/17/2024 Last Documented On 4 11:40AM ; [facility] # 2 Hours in labor: 7 hrs? 02/17/2024 Last Documented On 4 11:40AM ; [facility] # 2 Weight: 8 7 02/17/2024 Last Documented On 4 11:40AM ; [facility] #1 Complications None 02/17/2024 Last Documented On 4 11:40AM ; [facility] An HIV test was performed 02/17/2024 Last Documented On 4 11:40AM ; [facility] Elective (s) 0 02/17/2024 Last Documented On 4 11:40AM ; [facility] No. of miscarriages: 0 02/17/2024 Last Documented On 4 11:40AM ; [facility] No. of Pregnancies: 2 02/17/2024 Last Documented On 4 11:40AM ; [facility] Please list all surgeries: Knee surgeryT ubalGall bladderCarpal Tunnel 02/17/2024 Last Documented On 4 11:40AM ; [facility] Previous live (s) 2 02/17/2024 Last Documented On 4 11:40AM ; [facility] Previous premature delivery(s) 0 024 Last Documented On 4 11:40AM ; [facility] Previous STD 02/17/2024 Last Documented On 4 11:40AM ; [facility] Recent immunization for flu Late 2022 Last Documented On 4 11:40AM ; [facility] Reported Tdap/Td Vaccine 11/2702/17/2024 Last Documented On 4 11:40AM ; [facility] Sex of Child # 1: M 02/17/2024 Last Documented On 4 11:40AM ; [facility] Sex of Child # 2: F 02/17/2024 Last Documented On 4 11:40AM ; [facility] LMP: 03/27/2015 03/31/2015 Last Documented On 5 9:38AM ; [facility] History of dysfunctional uterine bleedin g 03/02/2015 Last Documented On 5 12:52PM ; [facility] History of leiomyoma of the uterus 03/02 Last Documented On 5 12:52PM ; [facility] Exposed to sexually transmitted infectio n 03/02/2015 Last Documented On 5 12:52PM ; [facility] In monogamous relationship 03/02/2015 Last Documented On 5 12:52PM ; [facility] History of hyperlipidemia 03/02/2015 Last Documented On 5 12:52PM ; [facility] History of thyroid disorder 03/02/2015 Last Documented On 5 12:52PM ; [facility] Sexually active 03/02/2015 Last Documented On 5 12:52PM ; [facility] Vaginal delivery 02/13/2011 Last Documented On 1 2:17PM ; [facility] No recent change in medical history 02/02 Last Documented On 1 2:17PM ; [facility] History of herpes simplex type II 2010 Last Documented On 1 8:07AM ; [facility] Result: normal 01/23/2011 Last Documented On 1 8:07AM ; [facility] Result: normal 01/23/2011 Last Documented On 1 8:07AM ; [facility] Para 2 01/23/2011 Last Documented On 1 8:07AM ; [facility] Contraception: tubal 01/23/2011 Last Documented On 1 8:07AM ; [facility] Previously diagnosed with a STD 01/24/20 11 Last Documented On 1 8:07AM ; [facility] A breast self-exam was performed 011 Last Documented On 1 8:07AM ; [facility] A mammogram was performed 01/23/2011 Last Documented On 1 8:07AM ; [facility] A Pap smear was performed 01/23/2011 Last Documented On 1 8:07AM ; [facility] Status post tubal ligation 01/23/2011 Last Documented On 1 8:07AM ; [facility] 2 living children 01/23/2011 Last Documented On 1 8:07AM ; [facility] Duration of labor: was twelve hr 011 Last Documented On 1 8:07AM ; [facility] 2 01/23/2011 Last Documented On 1 8:07AM ; [facility] History of the 1st : 01/23/2011 Last Documented On 1 8:07AM ; [facility] Herpes 01/23/2011 Last Documented On 1 8:07AM ; [facility] Family History Includes: Family History in patient's chart Description Last Updated Family history of Hepatitis 02/17/2024 Last Documented On 4 11:40AM ; [facility] Fraternal history of Herpes/HSV 02/17/20 Last Documented On 4 11:40AM ; [facility] Fraternal history of kidney disease 02/02 Last Documented On 4 11:40AM ; [facility] Family history of hypertension [place] 03/02/2015 Last Documented On 5 12:52PM ; [facility] Family history unchanged 03/02/2015 Last Documented On 5 12:52PM ; [facility] No family history of heart disease 03/02 Last Documented On 5 12:52PM ; [facility] No family history of hypercholesterolemi a 03/02/2015 Last Documented On 5 12:52PM ; [facility] No family history of uterine cancer 02/03 Last Documented On 5 12:52PM ; [facility] Sororal history of diabetes mellitus Last Documented On 5 12:52PM ; [facility] Maternal history of diabetes mellitus Last Documented On 5 12:52PM ; [facility] No family history of malignant female br east neoplasm 03/02/2015 Last Documented On 5 12:52PM ; [facility] No family history of malignant neoplasm of the large intestine 03/02/2015 Last Documented On 5 12:52PM ; [facility] No family history of malignant neoplasm of the ovary 03/02/2015 Last Documented On 5 12:52PM ; [facility] Family history of diabetes mellitus Moth er 01/23/2011 Last Documented On 1 8:07AM ; [facility] Family history of Diabetes 01/23/2011 Last Documented On 1 8:07AM ; [facility] Family medical history of high blood pre ssure 01/23/2011 Last Documented On 1 8:07AM ; [facility] Review of Systems Review of Systems not supported for this document type No Review of Systems Recorded Mental Status No Mental Status Recorded Functional Status No Functional Status Recorded Physical Exam Physical Exam not supported for this document type No Physical Exam Recorded Allergies Includes: Active, inactive, and resolved Allergies Substance Type Reaction Onset Date Resolved Date Statu s traMADol HCl Allergy 02/17/2024 Active Last Documented On 4 10:48AM ; [facility] Naproxen Allergy 02/17/2024 Active Last Documented On 4 10:48AM ; [facility] Encounters Includes: Encounters from 02/16/2024 through 02/15/2025 Encounter Provider Location Date Check-In Time Check-Out Time Diagnosis CHART UPDATE JIMMIE KEATING RN [facility] 04/22/20 24 04/16/2024 12:41PM 04/16/2024 11:59PM PROCEDURE OFFICE JIMMIE KEATING RN MUSA [facility] 04/16/20 24 10:40AM 11:35AM Postmenopausal Bleeding CHART UPDATE JIMMIE NATION 03/23/20 24 02/17/2024 1:59PM 02/17/2024 11:59PM WELL WOMAN - NEW PATIENT JIMMIE NATION [facility] 02/17/20 24 8:10AM 9:09AM Screen Malignant Neoplasm Cervix,Routine Gynecological Exam with Abnormal Findings,Vaginiti s,Postmenopausal Bleeding Insurance Includes: Active Insurance Policies Plan Name Member ID Group # Subscriber Relationship Effect tamara Dates 1 - [facility] [id number] BRYAN DELCID Self Clinical Notes Includes: Signed Clinical Notes starting from 11/23/2022 * Progress note Date Encounter Last Documented by 04/22/2024 CHART UPDATE Last documented on 04/23/2024; 8:49 AM, JIMMIE KEATING RN [facility] ; [facility] Active Problems & Conditions - 211.3 - [...] - 218.9 - Uterine Neoplasm, Benign Leiomyoma Current Medication - Caltrate 600+D3 600-20 MG-MCG Oral Tablet 0 days, 0 refills - [facility] Vitamin D3 250 MCG (55276 UT) Oral Capsule 0 days, 0 refills - Ibuprofen 800 MG Oral Tablet One tablet three times a day TAKE DIRECTED W/FOOD, 7 days, 0 refills - Levothyroxine Sodium 125 [...] Fraternal: Kidney disease Herpes/HSV Sororal: Diabetes mellitus Plan StartCited - Other PHY ORDER/COMMENT Please inform pt EMB pathology indicates no malignancy or infection. Dr. Russ has reviewed radiology and lab findings, and recommends further evaluation with TOGGLER Onc. d/t L cystic ovary and concerning tissue within the endometrium in order to form a plan of care. Please inquire if pt desires [facility] or [facility] so referral may be generated. Thanks PHY ORDER/COMMENT Please inform pt referral has been generated, and send all records, labs, and radiology reports with referral. Please instruct pt to callin 1 week if she has not been contacted by [facility]. Thanks EndCited StartCited - Other intra-abdominal and pelvic swelling, mass and lump Referral: Pipeline Welder Instructions: 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 for L ovarian hyperintense cystic lesion heterogeneous enhancing tissue within endometrial cavity both concerning for neoplasms per MRI, EMB and Ca 125 WNL EndCited Health Reminders - Flu Shot satisfied 04/22/2024. - Mammogram satisfied 12/05/2023. * Progress note Date Encounter Last Documented by 04/16/2024 PROCEDURE OFFICE Last documented on 04/16/2024; 11:30 AM, JIMMIE KEATING RN [facility]; [facility] Active Problems & Conditions - [...] refills - [facility] Vitamin D3 250 MCG (44409 UT) Oral Capsule 0 days, 0 refills [...] Shot satisfied 04/16/2024. - Mammogram satisfied 12/05/2023. * Progress note Date Encounter Last Documented by 03/23/2024 CHART UPDATE Last documented on 03/23/2024; 2:15 PM, JIMMIE KEATING RN [facility]; [facility] Active Problems & Conditions - [...] - 218.9 - Uterine Neoplasm, Benign Leiomyoma Current Medication - [facility] Vitamin D3 250 MCG (55972 UT) Oral Capsule 0 days, 0 refills [...] history, LMP: 03/27/2015, Last pap smear date 03/02/2015 result: normal, Last mammogram date: 12/2023 result: [...] Fraternal: Kidney disease Herpes/HSV Sororal: Diabetes mellitus Tests 03/23/24 TV TA U/S = uterus 9.9 x 5.8 x 4.4 cm endometrial stripe = 13 mm R ovary = 1.9 x 1.8 x 1.6 cm L ovary = 2.9 x 2.8 x 2.1 cm L complex cystic lesion w/thick septation and internal echoes = 2.7 x 2.3 x 1.8 cm Plan StartCited - Other PHY ORDER/COMMENT Please inform pt pelvic U/S indicates endometrial hyperplasia and L ovarian cystic lesion w/thick septation. Pt needs CA 125 serology, MRI ordered for additonal evaluation. Please also schedule EMB if pt doesn't already have appt. Thanks EndCited StartCited - Other intra-abdominal and pelvic swelling, mass and lump Lab: CA 125 Radiology @ other/MRI: MRI Pelvis w & w/o contrast Instructions: L cystic lesion noted w/thick septation and possible internal echoes on pelvic U/S EndCited Health Reminders - Flu Shot satisfied 03/23/2024. - Mammogram satisfied 12/05/2023. * Progress note Date Encounter Last Documented by 02/17/2024 WELL WOMAN - NEW PATIENT Last do cumented on 04/16/2024; 11:40 AM, JIMMIE KEATING RN [facility]; [facility] Active Problems & Conditions - [...] Medication - [facility] Vitamin D3 250 MCG (17632 UT) Oral Capsule 0 days, 0 refills [...] be scheduled) EndCited StartCited - Encntr for vocational guidance counselor exam (general) (routine) w abnormal findings Lab: [...]
--- OUTSIDE RECORDS SUMMARY | 2025-02-15 13:06 | XMS_ITS | CONTINUITY OF CARE DOCUMENT ---
Author Name gracie evitiarra Address Unknown Organization [facility] Address [address] [address] [place] [address] Phone [phone] Care Team Providers Care Abattoir Manager Name Role Phone Preeti ALDRICH, Sean Unavailable FAMILIA BUTCHER MD Unavailable FAMILIA BUTCHER MD Unavailable [phone] PROBLEMS Condition Status Date Provider Notes Cardiology examination active Sean Álvarez MD Family History of Hypertension: active Erasto Álvarez MD Chest pain active Sean Álvarez MD Abnormal EKG active Sean Álvarez MD HTN active Sean Álvarez MD Pulmonary hypertension active Sean Álvarez MD Obesity active Sean Álvarez MD Coronary atherosclerosis active Sean ward MD Shortness of breath active Sean Álvarez MD Swelling of bilateral legs active Sean forte MD ENCOUNTERS Date Type Provider Location Encounter Diag nosis - In-person encounter Office Visit Sean Álvarez MD [facility] - In-person encounter Office Visit Sean Álvarez MD [facility] Shortness of breathSwelling of bilateral legs - In-person encounter Office Visit Sean Álvarez MD [facility] Coronary atheroscler osis - In-person encounter Office Visit Sean Álvarez MD [facility] - In-person encounter Office Visit Sean Álvarez MD [facility] - In-person encounter Office Visit Sean Álvarez MD [facility] Cardiology examinationFamily History of Hypertension:Chest painAbnormal [...] lder weight E&M 224 [lb_av] Teresa Gisell [facility] height E&M 62 [in_i] Teresa Gisell [facility] Body Mass Index (Ratio) 39.32 kg/m2 Erasto Álvarez MD blood pressure, diastolic 80 mm[Hg] Li nkLogic blood pressure, systolic 124 mm[Hg] Sylwia kLogic blood pressure, cuff size large Ke rri Joesphueneekaterina blood pressure, diastolic 80 mm[Hg] Ke rri Joesphueneria blood pressure, systolic 124 mm[Hg] Luis Daniel arndt Stuart oxygen saturation, oximetry 97 % Teresa Davidson respiratory rate E&M 14 /min [facility] 90 /min Teresa Jameson [facility] weight E&M 215 [lb_av] Teresa Gisell [facility] height E&M 62 [in_i] Teresa Jameson [facility] Body Mass Index (Ratio) 38.77 kg/m2 Erasto [...] use, average drinks per day social Olga Donaldson NP alcohol use yes Olga lombardo NP cigarette use yes Olga rodriguez [employer] smoking status Former smoker Olga tompkins NP [...] status Former smoker Shazia A [facility] [employer] drug use no Shazia A Steel e [employer] alcohol use, average drinks per day social Shazia A Heard [employer] alcohol use yes Shazia A [employer] social history E&M S moking History: Tu saleem is a former smoker. Shazia A Heard [employer] social history reviewed E&M revi ewed - no changes required Shazia A Heard [employer] smoking, year quit 39 Aisha Bu sby cigarette use yes Aisha Goodrich number of grandchildren Sean Álvarez MD U [...] Payer name Policy type / Coverage type [place] [employer] ID [facility] [id number] ADVANCE DIRECTIVES Name Date DISCUSSED - NO DECISION MADE TREATMENT PLAN Date Name Performer [id number],C,I will start the pt on lipitor 10mg to keep the LDlL less than 70. Sean Álvarez MD [id number],C,w ill check an echo and have her come back Sean Álvarez MD [id number],C,W ill get her labs and then possibly start her on statins Sean Álvarez MD [id number],B, B P today: 124/80 P rior BP: 146/88 (10/18/2020) Sean Álvarez MD [id number],S,weight loss U maya Álvarez MD Cardiology:denies Sean [...] 146/88 P rior BP: 130/90 (06/08/2020) Sean Álvarze MD Cardiology:Patient h as no worsening shortness [...]
== END 2025-02-15 12:30 | disposition home or self-care (01) ==
PROVIDERS: Emergency Provider Nurse Practitioner Family; PCP Nurse Practitioner
DX: J20.9 Acute bronchitis, unspecified (principal); K21.9 Gastro-esophageal reflux disease without esophagitis; I10 Essential (primary) hypertension; E03.9 Hypothyroidism, unspecified; Z87.891 Personal history of nicotine dependence; Z20.822 Contact with and (suspected) exposure to COVID-19
CPT/HCPCS: 71046; 87426; 87804; 94640; 99213; G0463; J7512